=== PATIENT | female | born 1950 | race Two or more races ===

== ENCOUNTER → 2020-08-25 15:03 | Outpatient (BNV) | payer MEDICARE, SELFPAY | PROVIDERS: PCP Internal Medicine; Visit Provider Internal Medicine | DX: D69.6 Thrombocytopenia, unspecified (principal); E53.8 Deficiency of other specified B group vitamins | CPT/HCPCS: 99212; 99213 ==

== ENCOUNTER 2021-05-05 12:56 | Outpatient (REF) | payer MEDICARE, SELFPAY ==
--- NOTE | ~2021-05-05 | MM_ITS ---
EXAMINATION: MM SCREENING DIGITAL BREAST TOMOSYNTHESIS, BILATERAL CLINICAL INFORMATION: Screening. Asymptomatic. The lifetime risk of breast cancer based on the Tyrer-Cuzick Model is 3%. COMPARISON: Mammography: 04/02/2019, 03/21/2018, 03/08/2017 TECHNIQUE: Digital breast tomosynthesis is performed in both the craniocaudal and mediolateral oblique views along with computer-aided detection (CAD). Synthesized 2D images are generated from the tomosynthesis. FINDINGS: There are scattered areas of fibroglandular density (ACR BI-RADS breast composition Category b). There are no significant masses, abnormal calcifications, or other abnormalities. Breast tissue composition borders on predominantly fatty. Background stromal markings are stable. There is no interval mass or architectural abnormality. Again, there are numerous benign regional round and rim calcifications and some ductal secretory calcifications in the left breast along with scattered small oil cyst consistent with sequela from remote trauma. No abnormal calcifications on the right. No significant changes. MM/MM tomosynthesis screening BI IMPRESSION: No mammographic evidence of malignancy. ASSESSMENT: BI-RADS 2: Benign RECOMMENDATION: Routine annual mammography screening. This patient's information was entered into a reminder system with a target due date for their next mammogram.
== END 2021-05-05 12:57 | disposition home or self-care (01) ==
LOC: HO.MAMMO 12:56
PROVIDERS: Visit Provider Internal Medicine
DX: Z12.31 Encounter for screening mammogram for malignant neoplasm of breast (principal)
CPT/HCPCS: 77063; 77067

== ENCOUNTER 2022-05-08 13:59 | Outpatient (REF) | payer OTHER, SELFPAY ==
--- NOTE | ~2022-05-08 | MM_ITS ---
EXAMINATION: MM SCREENING DIGITAL BREAST TOMOSYNTHESIS, BILATERAL CLINICAL INFORMATION: Screening. Asymptomatic. The lifetime risk of breast cancer based on the Tyrer-Cuzick Model is 3%. COMPARISON: Mammography: 05/05/2021, 04/02/2019, 03/21/2018 TECHNIQUE: Digital breast tomosynthesis is performed in both the craniocaudal and mediolateral oblique views along with computer-aided detection (CAD). Synthesized 2D images are generated from the tomosynthesis. Additional right CC view is provided. FINDINGS: There are scattered areas of fibroglandular density (ACR BI-RADS breast composition Category b). Parenchymal pattern is similar to prior exams. There is no developing density or interval mass or architectural abnormality or abnormal calcifications. The axilla are unremarkable. Again, there are scattered small benign oil cysts in the left breast along with numerous benign rim calcifications consistent with sequela from prior remote injury. Right breast calcifications are stable. There are no significant changes. MM/MM tomosynthesis screening BI IMPRESSION: No mammographic evidence of malignancy. ASSESSMENT: BI-RADS 2: Benign RECOMMENDATION: Routine annual mammography screening. This patient's information was entered into a reminder system with a target due date for their next mammogram.
== END 2022-05-08 14:00 | disposition home or self-care (01) ==
LOC: HO.MAMMO 13:59
PROVIDERS: PCP Internal Medicine; Visit Provider Internal Medicine
DX: Z12.31 Encounter for screening mammogram for malignant neoplasm of breast (principal)
CPT/HCPCS: 77063; 77067

== ENCOUNTER 2022-12-19 14:30 | Outpatient (REF) | payer OTHER, SELFPAY ==
--- NOTE | ~2022-12-19 | XR_ITS ---
EXAMINATION: XR HIP, LEFT CLINICAL INFORMATION: Hip pain COMPARISON: CT scan the abdomen and pelvis November 2017 TECHNIQUE: Two views of the left hip. FINDINGS: Bones and soft tissues are normal. No fracture. Alignment is anatomic. Hip joint space is maintained. XR/XR hip LT min 2V IMPRESSION: Normal left hip.
--- NOTE | ~2022-12-19 | XR_ITS ---
EXAMINATION: XR LUMBOSACRAL SPINE WITH OBLIQUES CLINICAL INFORMATION: Low back pain COMPARISON: X-rays lumbar sacral spine April 2010. CT abdomen and pelvis November 2017. Vascular calcification noted within the aorta and branch vessels. Surrounding bone and soft tissues otherwise unremarkable. TECHNIQUE: AP, both oblique, and lateral views of the lumbar spine. Lateral view of the lumbosacral junction. FINDINGS: Vertebral bodies are normally aligned with normal height. Persistent degenerative disc changes most prominent at the L5-S1 level with a vacuum disc phenomena and disc space narrowing with endplate osteophytes. Mild degenerative disc changes at L4-L5 with endplate osteophytes. Bilateral facet arthrosis at the L5-S1 level better appreciated on prior CT. Arterial calcification noted in the abdomen. Surrounding bone and soft tissues unremarkable. 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 No significant change compared with the lumbar sacral spine dating back to 2009. No acute abnormality
== END 2022-12-19 14:31 | disposition home or self-care (01) ==
LOC: HO.HHCX 14:30
PROVIDERS: PCP Internal Medicine; Visit Provider Internal Medicine
DX: M25.552 Pain in left hip (principal); M54.50 Low back pain, unspecified
CPT/HCPCS: 72110; 73502

== ENCOUNTER 2022-12-27 13:53 | Outpatient (REF) | payer OTHER, SELFPAY ==
--- NOTE | ~2022-12-27 | MM_ITS ---
EXAMINATION: BONE DENSITOMETRY CLINICAL INDICATION: Osteopenia. COMPARISON: Previous BD dated 10/06/2016 and baseline BD dated 09/26/2005. TECHNIQUE: Using a TrendMD DXA System (software version: 13.1) manufactured by [employer], dual-energy x-ray absorptiometry was performed of the lumbar spine and left hip. The images are of good technical quality. Summary results are attached. FINDINGS: AP SPINE L1-L3 (excluding L4): The data of L1-L4 has been changed to exclude the L4 vertebral body, because degenerative changes at this level may cause overestimation of lumbar spine density. Current: BMD 0.953 g/cm2, Z-score -0.5, T-score -1.8, osteopenia, 2.7% increase from previous, 3.7% increase from baseline (<5% change is not significant). Prior: BMD 0.928 g/cm2. Baseline: BMD 0.919 g/cm2. LEFT FEMUR, NECK: Current: BMD 0.744 g/cm2, Z-score -0.5, T-score -2.1, osteopenia. Prior: BMD 0.741 g/cm2. Baseline: BMD 0.747 g/cm2. LEFT FEMUR, TOTAL: Current: BMD 0.894 g/cm2, Z-score 0.4, T-score -0.9, normal, 0.1% increase from previous, 0.2% increase from baseline (<5% change is not significant). Prior: BMD 0.893 g/cm2. Baseline: BMD 0.892 g/cm2. IDENTIFIED RISK FACTORS: Glucocorticoids (chronic), height loss, menopause, thiazide. HISTORY OF FRACTURE: None listed. MEDICATIONS: Calcium, vitamin D. MM/XR DEXA axial skeleton IMPRESSION: 1. DIAGNOSIS: Osteopenia based on the lowest T-score value of -2.1 in the femoral neck applying World Health Organization criteria. 2. 10-YEAR FRACTURE RISK PREDICTION, FRAX: Major osteoporotic fracture (clinical spine, forearm, hip or shoulder) 12.0%. Hip fracture 3.1%. 3. Treatment Recommendations: NOF guidelines recommend consideration for treatment in postmenopausal women and men age 50 and older presenting with the following: -A hip or vertebral (clinical or morphometric) fracture. -T-score less than or equal to -2.5 at the femoral neck or spine after appropriate evaluation to exclude secondary causes. -Low bone mass at the hip or spine and a 10-year fracture probability by FRAX of greater than or equal to 3% for hip fracture or greater than or equal to 20% for major osteoporotic fracture based on the [place] adapted WHO algorithm. 4. Other Recommendations: All treatment decisions require clinical judgment and consideration of individual patient factors, including patient preferences, comorbidities, previous drug use, risk factors not captured in the FRAX model (e.g. frailty, falls, vitamin D deficiency, increased bone turnover, interval significant decline in bone density) and possible under or overestimation of fracture risk by FRAX. Additional medical evaluation for secondary cause of low bone mineral density may be appropriate. FUTURE SCAN RECOMMENDATION: People with diagnosed cases of osteoporosis or at high risk for fracture should have regular bone mineral density tests. For patients eligible for Medicare, routine testing is allowed once every 2 years. The testing frequency can be increased to one year for patients who have rapidly progressing disease, those who are receiving or discontinuing medical therapy to restore bone mass, or have additional risk factors.
== END 2022-12-27 13:54 | disposition home or self-care (01) ==
LOC: HO.MAMMO 13:53
PROVIDERS: PCP Internal Medicine; Visit Provider Internal Medicine
DX: Z13.820 Encounter for screening for osteoporosis (principal); Z78.0 Asymptomatic menopausal state; M85.89 Other specified disorders of bone density and structure, multiple sites
CPT/HCPCS: 77080

== ENCOUNTER 2023-05-14 13:38 | Outpatient (REF) | payer OTHER, SELFPAY | END 2023-05-14 13:39 | disposition home or self-care (01) | LOC: HO.MAMMO 13:38 | PROVIDERS: PCP Internal Medicine; Visit Provider Internal Medicine | DX: Z12.31 Encounter for screening mammogram for malignant neoplasm of breast (principal) | CPT/HCPCS: 77063; 77067 ==

== ENCOUNTER → 2023-05-14 14:00 | Outpatient (BNV) | payer OTHER, SELFPAY | PROVIDERS: PCP Internal Medicine; Visit Provider Radiology Diagnostic Radiology | DX: Z12.31 Encounter for screening mammogram for malignant neoplasm of breast (principal) | CPT/HCPCS: 77063; 77067 ==

== ENCOUNTER 2023-11-05 09:14 | Outpatient (REF) | payer OTHER, SELFPAY ==
[2023-11-05 11:53] LABS: Alanine Aminotransferase 30 U/L (0-31); Albumin Level 4.3 g/dL (3.5-5.0); Alkaline Phosphatase 101 U/L (39-117); Anion Gap 15 (12-20); Aspartate Amino Transferase 34 U/L (5-31); Bilirubin Direct 0.2 mg/dL (0.0-0.5); Bilirubin Total 0.5 mg/dL (0.0-1.0); Blood Urea Nitrogen 9 mg/dL (9-16); Calcium 10.4 mg/dL (8.4-10.2); Carbon Dioxide 30 mmol/L (22-29); Chloride 100 mmol/L (96-108); Cholesterol 114 mg/dL (<200); Estimated Glomerular Filt Rate > 60; Glucose Random 114 mg/dL (60-115); HDL Cholesterol 34 mg/dL (>40); LDL Cholesterol Calculated 60 mg/dL (<100); Potassium 3.8 mmol/L (3.3-5.1); Sodium 141 mmol/L (135-145); Total Protein 8.1 g/dL (6.5-8.0); Triglycerides 101 mg/dL (<150)
[2023-11-05 12:42] LABS: Reflex LDLD? No
== END 2023-11-05 09:15 | disposition home or self-care (01) ==
LOC: HO.HHCL 09:14
PROVIDERS: Visit Provider Internal Medicine
DX: E11.9 Type 2 diabetes mellitus without complications (principal)
CPT/HCPCS: 36415; 80048; 80061; 80076

== ENCOUNTER 2023-11-30 08:00 | Day surgery (SDC) | payer OTHER, SELFPAY ==
--- NOTE | 2023-11-29 09:01 | P.CONAN_ITS ---
Documented by User: Ruth Damian NP 11/29/23 09:10 HPI - Anesthesia Eval Consult details Narrative: 73yo F for Colonoscopy Chronic mild thrombocytopenia. Plavix for hx CVA Anesthesia Pre-Procedure Meds Is the patient on any of the following meds?: Dulaglutide (Trulicity) PMFSH Active Problems Active Problems: All Active Problems Thrombocytopenia (Chronic) Past Medical History Medical History HTN (hypertension) Diabetes mellitus type 2 in obese Hx of Helicobacter infection GERD (gastroesophageal reflux disease) History of migraine headaches Tubular adenoma Hypertriglyceridemia Osteopenia Cervical dysplasia CVA (cerebral vascular accident) Thrombocytopenia Family History Family History Father Diabetes Mother Diabetes Surgical History Surgical History History of bilateral carpal tunnel release History of tubal ligation History of bladder suspension procedure Social History Social History Household Members: Spouse and Family Housing: House Patient Tobacco Use Status: Never used Tobacco Use of substances other than those prescribed or required for medical reasons: No Are you DNR?: No Advance Directives: No Advance Directives Information Provided: Yes service: No Current occupational status: retired 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 Meds Allergies Allergy/AdvReac Type Severity Reaction Status Date / Time aspirin [ASPIRIN] Allergy Unknown upset Verified 11/30/23 10:00 stomach aspirin Allergy Unknown upset Uncoded 11/30/23 10:00 stomach Home Medications ?Medication ?Instructions ?Recorded ?Confirmed ?Last Taken ?Type atorvastatin 40 mg tablet 1 tab PO BEDTIME 08/25/20 08/29/23 Unknown History clopidogrel 75 mg tablet 1 tab PO DAILY 08/25/20 11/30/23 11/24/23 History cyanocobalamin (vitamin B-12) 1 tab PO BEDTIME 08/25/20 11/30/23 Unknown History 1,000 mcg tablet meclizine 12.5 mg tablet 1 tab PO BID PRN dizziness 08/25/20 08/29/23 Unknown History tolterodine 4 mg capsule,extended 1 cap PO DAILY 08/25/20 11/30/23 Unknown History release 24 hr glipizide 5 mg tablet 5 mg PO DAILY 08/30/21 11/30/23 Unknown History hydrochlorothiazide 25 mg tablet 25 mg PO DAILY 08/30/21 11/30/23 Unknown History mirabegron 25 mg tablet,extended 25 mg PO DAILY 08/30/21 11/30/23 Unknown History release 24 hr (Myrbetriq) venlafaxine 37.5 mg 1 cap PO Q12H 08/30/21 11/30/23 Unknown History capsule,extended release 24 hr dulaglutide 0.75 mg/0.5 mL 0.75 mg subcut QWEEK 11/30/23 11/30/23 11/22/23 History subcutaneous pen injector (Trulicity) Exam Pertinent Lab Results Pertinent Lab Results: Laboratory Tests 08/29/23 11/05/23 12:58 09:20 WBC 9.0 Hgb 14.0 Hct 42.3 Plt Count 136 L Sodium 141 Potassium 3.8 Chloride 100 Carbon Dioxide 30 H BUN 9 Creatinine 0.67 Assessment and Plan Assessment Anesthesia Assessment: Chart Reviewed Documented by User: Carmen Lopez MD 11/30/23 10:13 HPI - Anesthesia Eval Anesthesia Pre-Procedure Meds Is the patient on any of the following meds?: Dulaglutide (Trulicity) (Last dose 11/22/23) If Yes to any meds - educate patient: Pt education - increased risk of aspiration PMFSH Active Problems Active Problems: All Active Problems Thrombocytopenia (Chronic) Residual Right sided weakness post CVA 2017 Past Medical History Medical History HTN (hypertension) Diabetes mellitus type 2 in obese Hx of Helicobacter infection GERD (gastroesophageal reflux disease) History of migraine headaches Tubular adenoma Hypertriglyceridemia Osteopenia Cervical dysplasia CVA (cerebral vascular accident) Thrombocytopenia Family History Family History Father Diabetes Mother Diabetes Family history of problems with anesthesia: No Surgical History Surgical History History of bilateral carpal tunnel release History of tubal ligation History of bladder suspension procedure History of Problems with Anesthesia: Yes (? Spinal headache for days after ?? 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 Allergies Allergy/AdvReac Type Severity Reaction Status Date / Time aspirin [ASPIRIN] Allergy Unknown upset Verified 11/30/23 10:00 stomach aspirin Allergy Unknown upset Uncoded 11/30/23 10:00 stomach Home Medications ?Medication ?Instructions ?Recorded ?Confirmed ?Last Taken ?Type atorvastatin 40 mg tablet 1 tab PO BEDTIME 08/25/20 08/29/23 Unknown History clopidogrel 75 mg tablet 1 tab PO DAILY 08/25/20 11/30/23 11/24/23 History cyanocobalamin (vitamin B-12) 1 tab PO BEDTIME 08/25/20 11/30/23 Unknown History 1,000 mcg tablet meclizine 12.5 mg tablet 1 tab PO BID PRN dizziness 08/25/20 08/29/23 Unknown History tolterodine 4 mg capsule,extended 1 cap PO DAILY 08/25/20 11/30/23 Unknown History release 24 hr glipizide 5 mg tablet 5 mg PO DAILY 08/30/21 11/30/23 Unknown History hydrochlorothiazide 25 mg tablet 25 mg PO DAILY 08/30/21 11/30/23 Unknown History mirabegron 25 mg tablet,extended 25 mg PO DAILY 08/30/21 11/30/23 Unknown History release 24 hr (Myrbetriq) venlafaxine 37.5 mg 1 cap PO Q12H 08/30/21 11/30/23 Unknown History capsule,extended release 24 hr dulaglutide 0.75 mg/0.5 mL 0.75 mg subcut QWEEK 11/30/23 11/30/23 11/22/23 History subcutaneous pen injector (Trulicity) Exam Height,Weight and Vital Signs: Height 5 ft 2 in Weight 73.028 kg Vital Signs Temp Pulse Resp BP Pulse Ox O2 Del Method 11/30/23 09:30 97.3 F 74 16 137/69 98 Room Air Airway Mallampati Class: III TM Dist: >3cm Neck ROM: Full Loose/Missing/Broken Teeth: Yes (Missing some teeth all over. ?broken tooth back. No loose teeth) Heart: RRR Lungs: CTAB Assessment and Plan Assessment Anesthesia Assessment: Anesthesia Plan Discussed and Chart Reviewed Final Anesthetic Review Family History of Problems with Anesthesia: No History of Problems with Anesthesia: Yes (? Spinal headache for days after ?? bladder suspension ) NPO: Yes ASA Class: III Final Preanesthetic Review: No Changes in Pt Med Stat, Meds/Allgs Chart Reviewed, Consent Obtained/Reviewed and Anes Risks/Benef Reviewed Patient Risk: Intermediate Procedure Risk: Low Assessment/Block/Sedation in SS: Assess/Block/Sedation-SS Anesthetic Plan Anesthetic Plan: MAC: and TIVA Disposition: Standard PACU
[2023-11-30 09:18] VITALS: BMI 29.4
[2023-11-30 09:30] VITALS: BP 137/69; PULSE 74; RESP 16; TEMP 36.3; O2SAT 98
[2023-11-30] MEDS: Lactated Ringers 1,000 ML 100 ML IVCONT (09:30)
[2023-11-30 09:56] LABS: Glucose, Whole Blood 129 mg/dL (60-115)
--- NOTE | 2023-11-30 10:58 | P.BOP_ITS ---
Brief Operative Note Date of Service: 11/30/23 Pre-op diagnosis: Screening Post-op diagnosis: other (Polyp) Procedure: Colonoscopy to the cecum with hot snare polypectomy x 1 and placement of 2 Resolution clips Surgeon: Tolu Chan MD Anesthesia: MAC Was an Electromechanical Assembler used for this Procedure?: No Estimated blood loss (mL): 0 Pathology: other (A. Ascending colon polyp) Condition: stable Disposition: PACU
[2023-11-30 10:59] VITALS: BP 130/62; PULSE 101; RESP 16; TEMP 36.9; O2SAT 92
[2023-11-30 11:14] VITALS: BP 125/68; PULSE 84; RESP 16; TEMP 36.6; O2SAT 96
--- NOTE | 2023-11-30 11:35 | OP_ITS ---
DATE OF SERVICE: 11/30/2023 SURGEON: Tolu Chan MD INDICATIONS: The patient presents for evaluation of colorectal cancer screening in regard to a personal history of colon polyps and family history of colon cancer. Full consent obtained from her for this, including risks of bleeding and perforation. PREOPERATIVE DIAGNOSIS: Colorectal cancer screening, personal history of colon polyps, family history of colon cancer. POSTOPERATIVE DIAGNOSIS: Colorectal cancer screening, personal history of colon polyps, family history of colon cancer, colon polyp, diverticulosis, and internal hemorrhoids. PROCEDURE PERFORMED: Colonoscopy to cecum with hot snare polypectomy and placement of 2 resolution clips. ESTIMATED BLOOD LOSS: COMPLICATIONS: ANESTHESIA: Monitored anesthesia care. ASSISTANTS: SPECIMENS: DESCRIPTION OF PROCEDURE: The patient was placed in the left lateral decubitus position. The digital rectal exam revealed no abnormalities. The A Fourth Act video pediatric colonoscope was entered into the rectum and advanced easily to the cecum. Once in the cecum, I did identify normal-appearing cecal pouch with appendiceal orifice, a normal-appearing ileocecal valve. The entire cecum and ileocecal valve appeared normal. The scope was slowly withdrawn assessing all mucosal surfaces carefully. Preparation was excellent. In the proximal ascending colon was an approximately 10 mm grossly adenomatous polyp, which was removed by hot snare polypectomy and recovered by suction. The polypectomy site appeared clean, without any sign of residual polyp nor bleeding. Two resolution clips were applied with good deployment and good hemostasis to the polypectomy site. I did not visualize any other polyps, colitis, or angiodysplasia. There was a mild amount of sigmoid diverticulosis. In the rectum, scope was retroflexed visualizing internal hemorrhoids, but no other pathology. The rectal mucosa appeared normal. The scope was straightened and withdrawn from the patient. She tolerated the procedure well and was returned to recovery area in stable condition. IMPRESSION: 1. Colon polyp. 2. Diverticulosis. 3. Internal hemorrhoids. PLAN: The results of the pathology will be checked. I would recommend a repeat colonoscopy in 5 years. She was advised not to use any aspirin or NSAIDs for at least 1 week. She was advised to resume her clopidogrel on December 03. MD RYAN Phillips/MINOR / [id number]
== END 2023-11-30 11:38 | disposition home or self-care (01) ==
PROVIDERS: PCP Internal Medicine; Visit Provider Internal Medicine
PROC: 0DJD8ZZ Inspection of Lower Intestinal Tract, Via Natural or Artificial Opening Endoscopic (ICD-10-PCS; CPT 45378; principal; 2023-11-30 09:30)
DX: Z12.11 Encounter for screening for malignant neoplasm of colon (principal); Z86.010 Personal history of colon polyps; Z80.0 Family history of malignant neoplasm of digestive organs; D12.2 Benign neoplasm of ascending colon; K57.30 Diverticulosis of large intestine without perforation or abscess without bleeding; K64.8 Other hemorrhoids; I10 Essential (primary) hypertension; I69.851 Hemiplegia and hemiparesis following other cerebrovascular disease affecting right dominant side; E11.9 Type 2 diabetes mellitus without complications; Z79.85 Long-term (current) use of injectable non-insulin antidiabetic drugs; Z79.84 Long term (current) use of oral hypoglycemic drugs; Z79.899 Other long term (current) drug therapy; Z79.01 Long term (current) use of anticoagulants; Z88.8 Allergy status to other drugs, medicaments and biological substances; Z98.890 Other specified postprocedural states
CPT/HCPCS: 45385; 82947; 88305; J1596; J2704

== ENCOUNTER 2024-05-26 15:14 | Outpatient (REF) | payer OTHER, SELFPAY ==
--- NOTE | ~2024-05-26 | MM_ITS ---
EXAMINATION: MM SCREENING DIGITAL BREAST TOMOSYNTHESIS, BILATERAL CLINICAL INFORMATION: Screening. Asymptomatic. COMPARISON: Mammography: Comparison is made with available priors TECHNIQUE: Digital breast mammography with tomosynthesis is performed in both the craniocaudal and mediolateral oblique views along with computer-aided detection (CAD). FINDINGS: There are scattered areas of fibroglandular density (ACR BI-RADS breast composition Category b). Bilateral rim calcifications are stable and benign. There are no significant masses, abnormal calcifications, or other abnormalities. MM/MM tomosynthesis screening BI IMPRESSION: No mammographic evidence of malignancy. ASSESSMENT: BI-RADS BI-RADS 2 - Benign Findings RECOMMENDATION: Routine annual mammography screening. 1 year F/U This examination should not preclude the clinical evaluation of a suspicious palpable abnormality. This patient's information was entered into a reminder system with a target due date for their next mammogram. Electronically signed by: Valeria Rogers DO 06/06/2024 04:45 PM EDT
== END 2024-05-26 15:15 | disposition home or self-care (01) ==
LOC: HO.MAMMO 15:14
PROVIDERS: Visit Provider Internal Medicine
DX: Z12.31 Encounter for screening mammogram for malignant neoplasm of breast (principal)
CPT/HCPCS: 77063; 77067

== ENCOUNTER → 2024-05-26 15:30 | Outpatient (BNV) | payer OTHER, SELFPAY | PROVIDERS: Visit Provider Internal Medicine | DX: Z12.31 Encounter for screening mammogram for malignant neoplasm of breast (principal) | CPT/HCPCS: 77063; 77067 ==

== ENCOUNTER 2024-07-08 11:10 | Outpatient (REF) | payer OTHER, SELFPAY ==
--- NOTE | ~2024-07-08 | MR_ITS ---
EXAMINATION: MR HIP WITHOUT CONTRAST, LEFT CLINICAL INFORMATION: Left hip and left leg pain. Back pain. COMPARISON: Left hip radiographs dated 12/19/2022. TECHNIQUE: MRI of the left hip was obtained using routine sequences on a high-field magnet. FINDINGS: ACETABULAR LABRUM: Linear fluid signal within the undersurface of the anterosuperior labrum (sagittal image 14/21), consistent with a nondisplaced undersurface tear. Linear fluid signal/tear extends to the undersurface of the lateral and posterosuperior labrum with a posterosuperior paralabral cyst measuring up to 1.4 cm in greatest dimension. ARTICULAR CARTILAGE/BONE: Mild articular cartilage signal heterogeneity with small marginal osteophytes. No stress reaction, fracture, or avascular necrosis. No concerning lytic or blastic osseous lesion. Mild right hip osteoarthritis on large field of view imaging. Degenerative disc disease and facet arthropathy at L5-S1. MUSCLES/TENDONS: Mild gluteus medius and gluteus minimus tendinosis. Moderate proximal left hamstring tendinosis. Longitudinal intrasubstance partial tearing of the proximal left hamstring tendon measuring up to 4 cm in craniocaudal dimension. No full-thickness transverse tendon tear or tendon retraction. JOINT FLUID/BURSA: No left hip joint effusion. Trace fluid and edema within the greater trochanter bursa, consistent with mild bursitis. INTRAPELVIC STRUCTURES: Unremarkable. MR/MR hip LT wo con IMPRESSION: 1. Nondisplaced undersurface tear of the anterosuperior labrum with extension to the lateral and posterior superior labrum. Posterosuperior paralabral cyst measuring up to 1.4 cm. 2. Mild left hip osteoarthritis. No stress reaction, fracture, or avascular necrosis. 3. Mild gluteus medius and gluteus minimus tendinosis. Moderate proximal left hamstring tendinosis with longitudinal intrasubstance partial tearing measuring up to 4 cm in craniocaudal dimension. No full-thickness transverse tendon tear or tendon retraction. 4. Mild greater trochanteric bursitis. 5. Degenerative disc disease and facet arthropathy at L5-S1. Electronically signed by: Brandon Chacon MD 07/18/2024 01:18 PM [facility]
== END 2024-07-08 11:11 | disposition home or self-care (01) ==
LOC: HO.MRI 11:10
PROVIDERS: PCP Internal Medicine; Visit Provider Internal Medicine
DX: M54.50 Low back pain, unspecified (principal); M79.605 Pain in left leg; M25.552 Pain in left hip
CPT/HCPCS: 72148; 73721

== ENCOUNTER 2024-09-08 13:00 | Outpatient (AMB) | payer OTHER, SELFPAY ==
[2024-09-08 13:30] VITALS: BMI 29.4
--- NOTE | 2024-09-08 13:30 | MHC.OFFVIS ---
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 Patient reports pain started about 2 yrs ago. She is experiencing groin pain, difficulty getting up from a sitting position, throbbing pain and trouble turning in bed. She has tried P.T on 2 separate occasions with no improvement, and injection 3x between January and March with no improvement. She also has numbness and tingling at times in her feet. Draft Roller Picker Name: [email or web address] [id number] Allergies aspirin [ASPIRIN] Allergy (Unknown, Verified 09/08/24 13:43) upset stomach aspirin Allergy (Unknown, Uncoded 09/08/24 13:43) upset stomach Medication List - Last Reconciled 09/08/24 by Chintan Saldivar PA-C atorvastatin 1 tab PO BEDTIME clopidogrel 1 tab PO DAILY cyanocobalamin (vitamin B-12) 1 tab PO BEDTIME dulaglutide (Trulicity) 0.75 mg subcut QWEEK glipizide 5 mg PO DAILY hydrochlorothiazide 25 mg PO DAILY meclizine 1 tab PO BID PRN mirabegron ER (Myrbetriq) 25 mg PO DAILY tolterodine ER 1 cap PO DAILY venlafaxine ER 1 cap PO Q12H HPI HPI 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 She needs to modify activity due to her pain . Mar 2024 she had an injection along with tylenol without significant relief. [facility] Medical History HTN (hypertension) Diabetes mellitus type 2 in obese Hx of Helicobacter infection GERD (gastroesophageal reflux disease) History of migraine headaches Tubular adenoma Hypertriglyceridemia Osteopenia Cervical dysplasia CVA (cerebral vascular accident) Thrombocytopenia Surgical History History of bilateral carpal tunnel release History of tubal ligation History of bladder suspension procedure Family History Father Diabetes Mother Diabetes Social History Household Members: Spouse and Family Housing: House Patient Tobacco Use Status: Never used Tobacco service: No Current occupational status: retired 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 No pain with ROM of the hip. Pain along the greater trochanter. No pain with hip flexion or abduction.There is tenderness along the si joint, Negative SLR. NVI. Office Procedures AMB Joint Injection/Aspiration Joint Injection/Aspiration Details: left trochanteric bursa Prep: site was prepped using aseptic technique, ethochloride spray was applied and injection warnings given Injected: 40 mg of, 80 mg of, DepoMedrol, with 8 mL of and 1% plain lidocaine Procedure: The patient tolerated the procedure well and there was some relief with the local anesthesia Coding 09347 - Glenohumeral/Tronchanteric Bursa/Intraarticular Procedure code (CPT) selection complete Results Reviewed Results Reviewed: X-rays of the left hip obtained in the office today and by me show mild sclerosis of the acetabulum with osteophytes. Assessment & Plan Assessment & Plan (1) Trochanteric bursitis of left hip: Code(s): M70.62 - Trochanteric bursitis, left hip Category: Medical Plan: We discussed options today which include steroid injection. She consented to a left hip trochanteric bursa injection which was tolerated well. I did encourage a course of physical therapy which she is hesitant to proceed with stating she has done this in the past without relief. Order was still placed. We also discussed their diabetes and the effect the steroid can have on thier blood glucose levels; therefore, they will continue to monitor these very closely over the next 72 hours Orders: Orders PT Evaluation and Treatment Today M70.62 - Trochanteric bursitis, left hip XR hip LT min 2V Today M25.552 - Pain in left hip Coding Level of Care Code New Pt Level 3 (08191) Complex EM visit Add On G2211 Diagnoses Trochanteric bursitis of left hip M70.62 CPT Codes Coding - Joint 7: 84074 - Glenohumeral/Tronchanteric Bursa/Intraarticular ([id number])
== END 2024-09-08 14:25 | disposition home or self-care (01) ==
LOC: HO.HOS 13:00
PROVIDERS: PCP Internal Medicine; Visit Provider Physician Assistant
DX: M70.62 Trochanteric bursitis, left hip (principal)
CPT/HCPCS: 20610; 99203; G2211

== ENCOUNTER 2024-09-11 10:51 | Outpatient (REF) | payer OTHER, SELFPAY ==
[2024-09-11 12:19] LABS: Alanine Aminotransferase 38 U/L (0-31); Albumin Level 4.3 g/dL (3.5-5.0); Alkaline Phosphatase 107 U/L (39-117); Anion Gap 10 (12-20); Aspartate Amino Transferase 32 U/L (5-31); Bilirubin Total 0.6 mg/dL (0.0-1.0); Blood Urea Nitrogen 10 mg/dL (9-16); Calcium 10.1 mg/dL (8.4-10.2); Carbon Dioxide 29 mmol/L (22-29); Chloride 105 mmol/L (96-108); Cholesterol 120 mg/dL (<200); Estimated Glomerular Filt Rate > 60; Glucose Random 87 mg/dL (60-115); HDL Cholesterol 42 mg/dL (>40); LDL Cholesterol Calculated 63 mg/dL (<100); Potassium 3.4 mmol/L (3.3-5.1); Sodium 141 mmol/L (135-145); Total Protein 7.9 g/dL (6.5-8.0); Triglycerides 78 mg/dL (<150)
[2024-09-11 12:35] LABS: TSH reflex Free T4 1.78 uIU/mL (0.32-4.0)
== END 2024-09-11 10:52 | disposition home or self-care (01) ==
LOC: HO.HHCL 10:51
PROVIDERS: Visit Provider Internal Medicine
DX: E11.9 Type 2 diabetes mellitus without complications (principal)
CPT/HCPCS: 36415; 80053; 80061; 84443

== ENCOUNTER 2024-09-15 10:03 | Outpatient (AMB) | payer OTHER, SELFPAY ==
--- NOTE | 2024-09-15 10:44 | HO.SPINEOV ---
Vital Signs 09/15/24 10:44 Height 5 ft 1 in Weight 159 lb BMI 30.0 Intake Visit Reasons: LBP Intake Note: Ms. Rene Fang is here today c/o hip pain. Soft Sugar Supervisor Required: Yes Soft Sugar Supervisor Name: Tablet Allergies aspirin [ASPIRIN] Allergy (Unknown, Verified 09/15/24 10:45) upset stomach aspirin Allergy (Unknown, Uncoded 09/08/24 13:43) upset stomach Physical Exam Vital Signs: BMI result Body Mass Index 30.0 Assessment & Plan Assessment & Plan (1) Left hip pain: Code(s): M25.552 - Pain in left hip Category: Medical Plan Soft Sugar Supervisor [id number] used for this visit Dear Dr. Randolph, Thank you for referring Angelina to our office today. She is a pleasant 74-year-old female who comes in today with a chief complaint of left hip pain. She reports this has been ongoing since 2022. She denies any known inciting incident for her pain. She does report some shooting pain down her left lower extremity mainly in the posterior thigh and posterior gastrocnemius. She denies any numbness/tingling associated with the pain. When asked where the worst of her pain as she points directly to the left trochanteric bursa. She reports that sitting down helps to alleviate her pain and that walking and standing aggravates her pain. She has attempted to utilize uxox-yqb-[id number] medications such as Tylenol to help mitigate the pain with only minimal relief of symptoms. She went to physical therapy about a year ago, and does feel as though this was helpful for her for period of time. She reports that she tried injections in her lumbar spine before, but felt there were not helpful for her. She most recently obtained an injection in her left hip from our colleagues in Orthopedics, and reports fairly good resolution of her left leg pain from this injection. Notably the MRI of her left hip shows a tear of the anterosuperior labrum. PMH: Trochanteric bursitis of the left hip, anxiety, overactive bladder, high blood pressure, type 2 diabetes (unknown last A1c), history of stroke, currently on clopidogrel. Social hx: The patient does not smoke, reports no substance use. Medications: See [employer] list. Allergies: Aspirin. Physical exam: The patient has 5/5 strength in her upper and lower extremities. The patient reports subjective weakness in the right side since her stroke, however this is not evident on her strength testing today. No significant sensational deficits on exam. The patient ambulates well, with the assistance of a cane. Her gait is non antalgic and non spastic. (-) Hernandez's, (-) bilateral straight leg raise, (-) clonus. Imaging review: MRI of the lumbar spine completed here at [facility] shows some left-sided foraminal stenosis at L3-4, mild bilateral foraminal stenosis at L4-5, and a posterior disc herniation at L5-S1 causing moderate-severe bilateral foraminal stenosis at this level, worse on the left. Impression: Angelina is a pleasant 74 year old female comes in today with a chief complaint of left hip pain. She reports this has been ongoing for the past 2 years, and most recently was treated by our colleagues in Orthopedics with a left hip injection. The patient reports fairly good relief of her left-sided hip pain with this injection. Importantly, she does report a left-sided radiculopathy alongside this pain, that starts in her left posterior buttocks shoots down her left posterior thigh and terminates near the left posterior gastrocnemius. She denies any numbness or tingling associated with this pain, but does state that the pain will ?flare up? throughout the day intermittently. She does have pathology at L5-S1 that may explain some of the shooting pain that she is having, but if her primary complaint is her left hip pain I do not believe that this would be adequately addressed by lumbar decompression/diskectomy at L5-S1. Most likely her well localized left hip pain is due to her trochanteric bursitis and/or the labral tear mentioned her MRI. I encouraged the patient to follow through with the physical therapy order placed by our colleagues in Orthopedics, and to make a follow-up appointment with them thereafter. Assuming that there is nothing more to do for her hip, we may re-evaluate the patient after she follows up with Orthopedics post physical therapy for potential decompression of her lumbar spine. Thank you for allowing us to care for your patient. The total time spent with this visit with this patient was 45 minutes reviewing history, physical exam, MRI imaging review, and implementation of treatment plan or further diagnostic testing Tunde Bryan MD,PhD [facility] Coding Level of Care Code Est Pt Level 4 (01296) Diagnoses Left hip pain M25.552
--- OUTSIDE RECORDS SUMMARY | 2024-09-15 14:38 | XMS_ITS | Encounter Summary ---
Author Organization [employer] Address [address] [place] [address] Care Team Providers Care Customer Associate Name Role Phone Ryan Latif MD Primary Care Provide r Reason for Visit * Reason Onset Date Comments Chart Prep 08/18/2024 Encounter Details Date Type Department Care Team ([facility] Contact Info) Description 08/18/2024 Telephone [facility] [address], [place] [phone] Ryan Latif MD [address], [place] [phone] Chart Prep Social History Tobacco Use Types Packs/Day Years Used Date Smoking Tobacco: Never Passive Smoke Exposure: Never Smokeless Tobacco: Never Alcohol Use Standard Drinks/Week Comments Defer 0 (1 standard drink = 0.6 oz pur e alcohol) Depression Answer Date Recorded Patient Health Questionnaire-9 Score 7 01/10/2024 Patient Health Questionnaire-9 Score 7 01/10/2024 Last PHQ-9: Questionnaire Data Not on file 0 01/10/2024 Housing Stability Answer Date Recorded What is your housing situation today? I have albino campbell 01/10/[address] you li ve. Do you have problems with any of the following? None of the above 01/10/2024 Food Insecurity Answer Date Recorded Within the past 12 months, y ou worried that your food would run out before you got money to buy more: Never True 01/10/2024 Within the past 12 months,th e food you bought just didn't last and you didn't have enough money to get more: Never True Transportation Answer Date Recorded In the past 12 months, has l ack of transportation kept you from medical appts, meetings, work or from getting things needed for daily living? No 01/10/2024 Utilities Answer Date Recorded In the past 12 months, has t he electric, gas, oil or water company threatened to shut off services in your home? No 01/10/2024 Depression Answer Date Recorded Patient Health Questionnaire-2 Score 2 01/10/2024 Internet Access Answer Date Recorded Internet Access Q1 Yes 05/22/2024 Internet Access Q2 Not on file 05/22/2024 Comments Unknown Sex and Gender Information Value Date Recorded Sex Assigned at Female 06/19/2022 10:18 AM EDT Legal Sex Female 10:18 AM EDT Gender Identity Female 06/19/2022 10:18 AM EDT Sexual Orientation Straight 06/19/2022 10 :18 AM EDT documented as of this encounter Miscellaneous Notes * Telephone Encounter - Lorna Olguin MA - 08/18/2024 2:59 PM EST Chart Prep Labs: not applicable Images: done ; no read/signed report for the MRI Lumbar Spine. Vaccines due: PCV20 Due Referrals: Orthopedics Appt on 09/08/2024 @1:45pm. Screenings: Eye Exam and Foot Exam Overdue care gaps: A1C, Glucose, and Oral Health Chart prep for upcoming appt with Dr.Esparza kuhn. LB documented in this encounter Plan of Treatment Not on file documented as of this encounter Visit Diagnoses Not on filedocumented in this encounter Additional Health Concerns Assessment Noted Time PHQ-9 Depression Total Score: 7 01/10/20 24 2:26 PM EDT documented as of this encounter Care Teams Customer Associate Relationship Specialty Start Date End Date Ryan Latif MD [address] [place] [address] PCP - General Internal Medicine 05/20/14 documented as of this encounter
--- OUTSIDE RECORDS SUMMARY | 2024-09-15 14:38 | XMS_ITS | Encounter Summary ---
Author Organization [employer] Address [address] [facility] [address] [place] [address] Care Team Providers Care Senior Quality Analyst Name Role Phone Ryan Latif MD Primary Care Provide r Encounter Details Date Type Department Care Team ([facility] st Contact Info) Description 09/14/2022 Orders Only [facility] PEDS [address] [place], [place] [phone] Kamryn Cruz LPN Social History Tobacco Use Types Packs/Day Years Used Date Smoking Tobacco: Never Assessed Comments Unknown Sex and Gender Information Value Date Recorded Sex Assigned at Female 06/19/2022 10:18 AM EDT Legal Sex Female 10:18 AM EDT Gender Identity Female 06/19/2022 10:18 AM EDT Sexual Orientation Straight 06/19/2022 10 :18 AM EDT documented as of this encounter Plan of Treatment Not on file documented as of this encounter Visit Diagnoses Not on filedocumented in this encounter Care Teams Senior Quality Analyst Relationship Specialty Start Date End Date Ryan Latif MD [address] [place] [phone] PCP - General Internal Medicine 05/20/14 documented as of this encounter
--- OUTSIDE RECORDS SUMMARY | 2024-09-15 14:38 | XMS_ITS | Encounter Summary ---
Author Organization [employer] Address [address] [facility] [address] [place] [address] Care Team Providers Care Jboss Architect Name Role Phone Ryan Latif MD Primary Care Provide r Encounter Details Date Type Department Care Team ([facility] st Contact Info) Description 09/03/2024 Telephone [facility] [address] [place], [place] [phone] Ryan Latif MD [address] [place], [place] [phone] Social History Tobacco Use Types Packs/Day Years [...] documented as of this encounter Care Teams Jboss Architect Relationship Specialty Start Date End Date Ryan Latif MD [address] [place] [id number] PCP - General Internal Medicine 05/20/14 documented as of this encounter
--- OUTSIDE RECORDS SUMMARY | 2024-09-15 14:38 | XMS_ITS | Encounter Summary ---
Author Organization [employer] Address [address] [facility] [address] [place] [address] Care Team Providers Care Barn Operator Name Role Phone Ryan Latif MD Primary Care Provide r Encounter Details Date Type Department Care Team ([facility] st Contact Info) Description 08/25/2022 Orders Only [facility] MED & PEDS [address] [place], [place] [phone] Kamryn Cruz LPN Social History Tobacco Use [...] on filedocumented in this encounter Care Teams Barn Operator Relationship Specialty Start Date End Date Ryan Latif MD [address] [place] [id number] PCP - General Internal Medicine 05/20/14 documented as of this encounter
--- OUTSIDE RECORDS SUMMARY | 2024-09-15 14:38 | XMS_ITS | Clinical Summary ---
Author Organization [employer] Address [address] [facility] [address] [place] [address] Care Team Providers Care Bobbin Disker Name Role Phone Ryan Latif MD Primary Care Provide r Allergies Active Allergy Reactions Criticality Noted Date Comments Aspirin 03/07/2012 Other reaction(s): skin irritation,stomach ache , ABDOMEN PAIN Lidocaine Other Medium 06/05/2024 Pt c/o numbness that lasted for 2 days, pt tolerated Mepivacaine Medications Continuous Blood Gluc Laserist (FreeStyle Nerissa 2 Brethren) deviceIndications :Type 2 diabetes mellitus without complication, without long-term current use of insulin ([facility]) 1 applicator with breakfast, with lunch, and with evening meal. 1 each 3 Active Continuous Blood Gluc Sensor (FreeStyle Nerissa 2 Sensor) miscIndications:T ype 2 diabetes mellitus without complication, without long-term current use of insulin (CMS/HCC) 1 applicator before breakfast, before lunch, and before evening meal. 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 Dx diabetes 60 each 11 4 Active FreeStyle lancets 1 each by Other route 2 times daily. Use bid, dx type 2 diabetes 60 each 11 4 Active glipiZIDE XL (Glucotrol XL) 10 MG 24 hr tabletIndications :Type 2 diabetes mellitus without complication, unspecified whether alf insulin use (CMS/[facility]) TAKE 1 TABLET BY MOUTH EVERY 12 HOURS 180 tablet 1 4 Active famotidine (Pepcid) 20 MG tabletIndications :Chronic GERD TAKE 1 TABLET BY MOUTH TWICE DAILY 60 tablet 6 4 Active Dulaglutide 1.5 MG/0.5ML solution auto-injectorIndi cations:Type 2 diabetes mellitus without complication, without long-term current use of insulin (CMS/HCC) Inject 1.5 mg under the skin 1 (one) time per week. 0.5 mL 6 4 Active Active Problems Problem Noted Date Diagnosed Date Overweight (BMI 25.0-29.9) 09/02/2024 Assessment & Plan (09/02/2024 2:42 PM EST): Dietary Recommendations: Fruits, vegetables, whole grains, protein foods, and fat-free or low-fat dairy products are healthy choices. Eat different types of protein foods in your diet. This can include seafood, lean meats, poultry, beans, peas, lentils, nuts, seeds, soy products, and eggs. Limit foods and beverages higher in added sugars, saturated fat, and sodium. Exercise Recommendations: At least 150 minutes of moderate-intensity physical activity per week, or an equivalent combination of moderate- and vigorous-intensity activity Thrombocytopenia 06/05/2024 Assessment & Plan (09/02/2024 2:29 PM EST): Under the care of Dr Walter, last seen 08/2023 Pt with chronic mild thrombocytopenia. Hematological workup showed low vitamin B12 levels. Normal methylmalonic acid and negative intrinsic factor antibody. She is on oral vitamin B12 supplementation. They recommended: Follow up in 1 year. Assessment & Plan (06/05/2024 2:22 PM EDT): Under the care of Dr Walter, last seen 08/2023 Pt with chronic mild thrombocytopenia. Hematological workup showed low vitamin B12 levels. Normal methylmalonic acid and negative intrinsic factor antibody. She is on oral vitamin B12 supplementation. They recommended: Follow up in 1 year. Dental caries 06/21/2023 Periodontal disease 04/26/2023 Type 2 diabetes mellitus without complication Assessment & Plan (09/02/2024 2:40 PM EST): Pt here for a f/u regarding her Diabetes controlled She is on a regimen of Glipizide ER 10 mg po BID and Trulicity 1.5 once a week Intolerant to Metformin due to Nausea and Vomiting Hgb A1c on 09/02/2024: 6.6 Eye exam 01/2022 Microalbumin 12/29/2022 0.6 Pt not on an FELY inhibitor/ARB Foot check today is risk of: 1 on the right foot and zero on the left Pt already on Plavix 75 mg po daily Plan: decrease glipizide to 10 mg once daily. f/u 4 months, Pt advised to: adhere to diabetic diet check your blood sugars regularly check your feet on a daily basis. Assessment & Plan (06/05/2024 2:26 PM EDT): Pt here for a f/u regarding her Diabetes controlled She is on a regimen of Glipizide ER 10 mg po BID and Trulicity 1.5 once a week Intolerant to Metformin due to Nausea and Vomiting Hgb A1c on 06/05/2024 was 6.7 from 7.5 from 7.2 from 7.7 from a previous one of 9.6 Glucometer: average 121 Eye exam 01/2022 Microalbumin 12/29/2022 0.6 Pt not on an FELY inhibitor/ARB Foot check today is risk of: 1 on the right foot and zero on the left Pt already on Plavix 75 mg po daily Plan: f/u 4 months, Pt advised to: adhere to diabetic diet check your blood sugars regularly check your feet on a daily basis. Assessment & Plan (01/10/2024 2:44 PM EDT): Pt here for a f/u regarding her Diabetes stable She is on a regimen of Glipizide ER 10 mg po BID and Trulicity 0.75 once a week Intolerant to Metformin due to Nausea and Vomiting Hgb A1c on 01/10/2024 was 7.5 from 7.2 from 7.7 from a previous one of 9.6 Glucometer: average 108 Eye exam 01/2022 Microalbumin 12/29/2022 0.6 Pt not on an FELY inhibitor/ARB Foot check today is risk of: 1 on the right foot and zero on the left Pt already on Plavix 75 mg po daily Plan: Increase Trulicity to 1.5 mg once a week f/u 4 months, Pt advised to: adhere to diabetic diet check your blood sugars regularly check your feet on a daily basis. Assessment & Plan (10/11/2023 3:24 PM EST): Pt here for a f/u regarding her Diabetes improving She is on a regimen of Glipizide ER 10 mg po BID and Trulicity 0.75 once a week Intolerant to Metformin due to Nausea and Vomiting Hgb A1c on 10/11/2023 was 7.2 from 7.7 from 8.6 from a previous one of 9.6 Glucometer: average 111 Eye exam 01/2022 Microalbumin 12/29/2022 0.6 Pt not on an FELY inhibitor/ARB Foot check today is risk of: 1 on the right foot and zero on the left Pt already on Plavix 75 mg po daily Plan: Continue current regimen f/u 4 months, Pt advised to: adhere to diabetic diet check your blood sugars regularly check your feet on a daily basis. Assessment & Plan (06/26/2023 2:36 PM EST): Pt here for a f/u regarding her Diabetes She is on a regimen of Glipizide ER 10 mg po BID and Trulicity 0.75 once a week Intolerant to Metformin due to Nausea and Vomiting Hgb A1c on 06/26/2023: was 7.7 from 8.6 from a previous one of 9.6 Glucometer: did not bring Eye exam 01/2022 Microalbumin 04/01/2021 0.8 Pt not on an FELY inhibitor/ARB Repeat Microalbumin Foot check today is risk of: 1 on the right foot and zero on the left Pt already on Plavix 75 mg po daily Plan: Continue current regimen f/u 4 months, Pt advised to: adhere to diabetic diet check your blood sugars regularly check your feet on a daily basis. Assessment & Plan (04/03/2023 2:45 PM EDT): Pt here for a f/u regarding her Diabetes She is on a regimen of Glipizide ER 10 mg po BID and Trulicity 0.75 once a week Intolerant to Metformin due to Nausea and Vomiting Hgb A1c on 04/03/2023: 8.6 from a previous one of 9.6 Glucometer: did not bring Eye exam 01/2022 Microalbumin 04/01/2021 0.8 Pt not on an FLEY inhibitor/ARB Repeat Microalbumin Foot check today is risk of: 1 on the right foot and zero on the left Pt already on Plavix 75 mg po daily Plan: Continue current regimen f/u 4 months, Pt advised to: adhere to diabetic diet check your blood sugars regularly check your feet on a daily basis. Assessment & Plan (02/06/2023 2:49 PM EDT): Pt here for a f/u regarding her Diabetes She is on a regimen of Glipizide ER 10 mg po BID Intolerant to Metformin due to Nausea and Vomiting Hgb A1c on 12/19/2022: 9.6 Glucometer: Eye exam 01/2022 Microalbumin 04/01/2021 0.8 Pt not on an FELY inhibitor/ARB Repeat Microalbumin Foot check today is risk of: 1 on the right foot and zero on the left Pt already on Plavix 75 mg po daily Plan: Start Trulicity 0.75 once a week, No Hx of thyroid cancer or pancreatitis f/u 4 months, Pt advised to: adhere to diabetic diet check your blood sugars regularly check your feet on a daily basis. Assessment & Plan (12/19/2022 2:31 PM EDT): Pt here for a f/u regarding her Diabetes She is on a regimen of Glipizide ER 10 mg po BID Intolerant to Metformin due to Nausea and Vomiting Hgb A1c on 12/19/2022: 9.6 Glucometer shows readings around 110-130, So it is unclear why her Hgb A1c is > 9 Eye exam 01/2022 Microalbumin 04/01/2021 0.8 Pt not on an FELY inhibitor/ARB Repeat Microalbumin Foot check today is risk of: 1 on the right foot and zero on the left Pt already on Plavix 75 mg po daily Plan: Discussed with pt need to be compliant with medical regimen f/u 4 weeks, might need to start a medication such as Trulicity, blood work ordered to make sure renal and liver function are adequate before we start Pt advised to: adhere to diabetic diet check your blood sugars regularly check your feet on a daily basis. Migraine 12/19/2022 Assessment & Plan (12/19/2022 12:00 PM EDT): pt here for a f/u Continues with migraines maybe twice a week but less intense with the use of Tylenol #3 prn for the migraine and Effexor XR 35 mg po BID for prophylaxis Previously I ordered: Fioricet PRN but Insurance denied it. She is not a candidate for Triptans given her Hx of CVA of unknown etiology. Plan: Continue Effexor XR 37.5 mg po BID as prophylaxis , refills sent Continue Tylenol #3 prn Pt was referred to Neurology scheduled for 07/2020, Pt tells me she was never called, Today we have reached out to their office to schedule Urge incontinence of urine 12/19/2022 Assessment & Plan (06/05/2024 1:54 PM EDT): Under the care of Urology, s/p cystoscopy with botox injection Last seen by [facility] urology 03/24/2024 Assessment & Plan (10/11/2023 3:11 PM EST): Under the care of Urology, s/p cystoscopy with botox injection Last seen by [facility] urology 09/19/2023 Assessment & Plan (06/26/2023 2:49 PM EST): Under the care of Urology, s/p cystoscopy with botox injection Has an appointment in August 2023 Assessment & Plan (12/19/2022 11:59 AM EDT): Under the care of Urology, s/p cystoscopy with botox injection Primary hypertension 12/19/2022 Assessment & Plan (06/05/2024 2:45 PM EDT): Patient here for a f/u BP controlled Most recent electrolytes, Bun and Creatinine done on: Lab Results Component Value Date NA 141 11/05/2023 NA 139 12/29/2022 K 3.8 11/05/2023 K 3.8 12/29/2022 CL 100 11/05/2023 CL 101 12/29/2022 BUN 9 11/05/2023 BUN 13 12/29/2022 CREATININE 0.67 11/05/2023 CREATININE 0.48 (L) 12/29/2022 within normal limits. She is on Hctz 25 mg po daily Plan: continue current regimen f/u 4 months patient advised to adhere to a low sodium diet, encouraged about medication compliance, counseled about weight loss. Assessment & Plan (01/10/2024 2:38 PM EDT): Patient here for a f/u Most recent electrolytes, Bun and Creatinine done on: 11/05/2023 were within normal limits. She is on Hctz 25 mg po daily Plan: continue current regimen f/u 4 months patient advised to adhere to a low sodium diet, encouraged about medication compliance, counseled about weight loss. Assessment & Plan (10/11/2023 3:10 PM EST): Patient here for a f/u Most recent electrolytes, Bun and Creatinine done on: 12/29/2022 were within normal limits. She is on Hctz 25 mg po daily Plan: continue current regimen Today will order a repeat BMP f/u 4 months patient advised to adhere to a low sodium diet, encouraged about medication compliance, counseled about weight loss. Assessment & Plan (06/26/2023 2:35 PM EST): Patient here for a f/u Most recent electrolytes, Bun and Creatinine done on: 12/29/2022 were within normal limits. She is on Hctz 25 mg po daily Plan: continue current regimen f/u 4 months patient advised to adhere to a low sodium diet, encouraged about medication compliance, counseled about weight loss. Assessment & Plan (12/19/2022 11:59 AM EDT): Patient here for a f/u Most recent electrolytes, Bun and Creatinine done on: 12/19/2021 were within normal limits. She is on Hctz 25 mg po daily Plan: continue current regimen f/u 4 months patient advised to adhere to a low sodium diet, encouraged about medication compliance, counseled about weight loss. Carpal tunnel syndrome of left wrist 12/19/2022 Assessment & Plan (06/26/2023 2:54 PM EST): S/p release left CTS Still c/o numbness and weakness Pt requesting increase in NURSE GYNECOLOGY hours I think she would benefit from an increase in hours Assessment & Plan (12/19/2022 12:07 PM EDT): S/p release left CTS Doing better although still c/o numbness and weakness Neck pain 12/19/2022 Assessment & Plan (12/19/2022 12:09 PM EDT): Pt with previous c/o chronic right-sided neck pain with radiation to right shoulder and right arm (and across to left?) accompanied by right upper extremity weakness. Pt has h/o CVA w/ residual R sided pain and weakness. She has improvement in sx w/ heat and mild improvement w/ APAP. When pain is bad, it keeps her up. In the past, symptomatology was suggestive of cervical radiculopathy Plain films cervical spine showed mild degenerative changes and right shoulder was unremarkable Pt was also referred to [facility] for consideration of PT and possible steroid injections to help her with the pain, but she was only able to complete 2 sessions w/ them,. will re-refer today. Will send lidocaine patches and ointment, pharmacy to dispense whichever is covered by her insurance w/o a PA. Advised heat, gentle stretching, f/u with neurology as scheduled. Re-refer for PT. She has rec'd her #3 COVID-19 booster, unable to reconcile in [facility]. MRI of cervical spine 02/17/2020 showed: Broad-based posterior disc bulge and uncovertebral joint spurring at C6-C7 with moderate foraminal encroachment and mild central canal stenosis. Minimal annular bulge and left-sided uncovertebral joint spurring at C5-C6 with mild right foraminal encroachment. [facility] care 12/19/2022 Assessment & Plan (09/02/2024 2:31 PM EST): Mammogram: 05/26/2024 Normal Pap Smear: NL: 02/14/2017 No need to continue given her age Colonoscopy: 11/10/2016 Pathology showed multiple tubular adenomas 5 year f/u recommended. Repeat 11/30/2023 Dr smalls showed a polyp 5 year follow up recommended Dexa scan: 09/29/2016 showed Osteopenia. Assessment & Plan (01/10/2024 2:36 PM EDT): Mammogram: 05/14/2023 Normal Pap Smear: NL: 02/14/2017 No need to continue given her age Colonoscopy: 11/10/2016 Pathology showed multiple tubular adenomas 5 year f/u recommended. Repeat 11/30/2023 Dr smalls showed a polyp 5 year follow up recommended Vaccines: tdap: 09/16/2010 Zoster: 12/17/2014 Dexa scan: 09/29/2016 showed Osteopenia. Assessment & Plan (10/11/2023 3:17 PM EST): Mammogram: 05/14/2023 Normal Pap Smear: NL: 02/14/2017 No need to continue given her age Colonoscopy: 11/10/2016 Pathology showed multiple tubular adenomas 5 year f/u recommended. She was referred to [facility], She was supposed to have a colonoscopy in January but this never happened, she is now scheduled for November 2023 Vaccines: tdap: 09/16/2010 Zoster: 12/17/2014 Dexa scan: 09/29/2016 showed Osteopenia. Assessment & Plan (06/26/2023 2:51 PM EST): Mammogram: 05/14/2023 Normal Pap Smear: NL: 02/14/2017 No need to continue given her age Colonoscopy: 11/10/2016 Pathology showed multiple tubular adenomas 5 year f/u recommended. She was referred to [facility], She was supposed to have a colonoscopy in January but today tells me she was never contacted by [employer]. Today my MA has contacted them to help facilitate this process for patient Vaccines: tdap: 09/16/2010 Zoster: 12/17/2014 Dexa scan: 09/29/2016 showed Osteopenia. Assessment & Plan (04/03/2023 2:57 PM EDT): Mammogram: 2022 Normal Pap Smear: NL: 02/14/2017 No need to continue given her age Colonoscopy: 11/10/2016 Pathology showed multiple tubular adenomas 5 year f/u recommended. She was referred to [facility], She was supposed to have a colonoscopy in January but today tells me she was never contacted by [employer]. Today my MA has contacted them to help facilitate this process for patient Vaccines: tdap: 09/16/2010 Zoster: 12/17/2014 Dexa scan: 09/29/2016 showed Osteopenia. Assessment & Plan (12/19/2022 2:03 PM EDT): Mammogram: 2022 Normal Pap Smear: NL: 02/14/2017 No need to continue given her age Colonoscopy: 11/10/2016 Pathology showed multiple tubular adenomas 5 year f/u recommended. She was referred to [facility] Vaccines: tdap: 09/16/2010 Zoster: 12/17/2014 Dexa scan: 09/29/2016 showed Osteopenia. Low back pain radiating to left leg 12/19/2022 Assessment & Plan (09/02/2024 2:39 PM EST): Pt here for a follow up, previous visit came in with c/o new onset of low back pain with radiation to her left hip and left leg in the absence of any injury Symptoms were suggestive of sciatica Plan: muscle relaxant, pain control Plain films of LS spine showed: Spondylosis of lumbar sacral spine with degenerative disc changes most prominent at the L5-S1 level. No significant change compared with the lumbar sacral spine dating back to 2009. No acute abnormality X-rays of the left hip was normal Patient finished PT. Pt seen at [facility] received steroid injections with no good results MRI LS spine 08/05/2024 showed: MR/MR lumbar spine wo con IMPRESSION: 1. Mild mid lumbar levocurvature convex to the left at L2-L3 with trace grade 1 degenerative spondylolisthesis at L4-L5 without spondylolysis. 2. Discogenic degenerative changes primarily at L5-S1 and, to a lesser degree, at L3-L4 and L4-L5, as discussed above, with disc bulging and central disc protrusion at L5-S1 and disc bulging at L4-L5 with posterior element hypertrophic degenerative changes and [id number] spinal canal stenosis at L4-L5. Plan: referral to neurosurgeon Dr. shaffer 3. Disc bulging at L3-L4 and a small right subarticular disc protrusion at L2-L3 with posterior element hypertrophic degenerative changes and prominent dorsal fat pads without significant canal stenosis. 4. Severe left-sided and [id number] right-sided neural foraminal stenosis at L5-S1 with impingement on the exiting left L5 nerve root. [id number]-ha-vaamicyj bilateral neural foraminal stenosis at L4-L5 and [id number] left-sided and minimal right-sided foraminal stenosis at L3-L4. 5. Lower thoracic degenerative changes, as discussed above. Assessment & Plan (06/05/2024 2:47 PM EDT): Pt here for a follow up, previous visit came in with c/o new onset of low back pain with radiation to her left hip and left leg in the absence of any injury Symptoms were suggestive of sciatica Plan: muscle relaxant, pain control Plain films of LS spine showed: Spondylosis of lumbar sacral spine with degenerative disc changes most prominent at the L5-S1 level. No significant change compared with the lumbar sacral spine dating back to 2009. No acute abnormality X-rays of the left hip was normal Patient finished PT. Pt seen at [facility] received steroid injections with no good results Plan: MRI LS spine Assessment & Plan (10/11/2023 3:22 PM EST): Pt here for a follow up, previous visit came in with c/o new onset of low back pain with radiation to her left hip and left leg in the absence of any injury Symptoms were suggestive of sciatica Plan: muscle relaxant, pain control Plain films of LS spine showed: Spondylosis of lumbar sacral spine with degenerative disc changes most prominent at the L5-S1 level. No significant change compared with the lumbar sacral spine dating back to 2009. No acute abnormality X-rays of the left hip was normal Patient finished PT. Pt will be referred to [facility] Assessment & Plan (02/06/2023 2:44 PM EDT): Pt here for a follow up, previous visit came in with c/o new onset of low back pain with radiation to her left hip and left leg in the absence of any injury Symptoms were suggestive of sciatica Plan: muscle relaxant, pain control Plain films of LS spine showed: Spondylosis of lumbar sacral spine with degenerative disc changes most prominent at the L5-S1 level. No significant change compared with the lumbar sacral spine dating back to 2009. No acute abnormality X-rays of the left hip was normal PT eval ordered previous visit, pt tells me that she is currently undergoing treatment with good results. Assessment & Plan (12/19/2022 2:10 PM EDT): Pt with c/o new onset of low back pain with radiation to her left hip and left leg in the absence of any injury Symptoms suggestive of sciatica Plan: muscle relaxant, pain control Plain films of LS spine and left Hip PT eval Follow up after evaluation Left hip pain 12/19/2022 Assessment & Plan (09/02/2024 2:24 PM EST): Pt with persistent c/o left sided low back pain with radiation to left hip Plain films of hip normal. LS spine showed: Spondylosis of lumbar sacral spine with degenerative disc changes most prominent at the L5-S1 level. No significant change compared with the lumbar sacral spine dating back to 2009. No acute abnormality Under the care of [facility] seen in 02/2024 received steroid injections. With no good results Obtain MRI of Left hip 08/05/2024 showed: MR/MR hip LT wo con IMPRESSION: 1. Nondisplaced undersurface tear of the anterosuperior labrum with extension to the lateral and posterior superior labrum. Posterosuperior paralabral cyst measuring up to 1.4 cm. 2. Mild left hip osteoarthritis. No stress reaction, fracture, or avascular necrosis. 3. Mild gluteus medius and gluteus minimus tendinosis. Moderate proximal left hamstring tendinosis with longitudinal intrasubstance partial tearing measuring up to 4 cm in craniocaudal dimension. No full-thickness transverse tendon tear or tendon retraction. 4. Mild greater trochanteric bursitis. 5. Degenerative disc disease and facet arthropathy at L5-S1. Pt is already scheduled to see Ortho 09/08/2024 Assessment & Plan (06/05/2024 2:47 PM EDT): Pt with persistent c/o left sided low back pain with radiation to left hip Plain films of hip normal. LS spine showed: Spondylosis of lumbar sacral spine with degenerative disc changes most prominent at the L5-S1 level. No significant change compared with the lumbar sacral spine dating back to 2009. No acute abnormality Under the care of [facility] seen in 02/2024 received steroid injections. With no good results Plan: Obtain MRI of Left hip Assessment & Plan (01/10/2024 2:42 PM EDT): Pt with previous c/o left sided low back pain with radiation to left hip Plain films of hip normal. LS spine showed: Spondylosis of lumbar sacral spine with degenerative disc changes most prominent at the L5-S1 level. No significant change compared with the lumbar sacral spine dating back to 2009. No acute abnormality Under the care of [facility] seen in October received steroid injections with somewhat good results Assessment & Plan (10/11/2023 3:20 PM EST): Pt with previous c/o left sided low back pain with radiation to left hip Plain films of hip normal. LS spine showed: Spondylosis of lumbar sacral spine with degenerative disc changes most prominent at the L5-S1 level. No significant change compared with the lumbar sacral spine dating back to 2009. No acute abnormality Assessment & Plan (12/19/2022 2:11 PM EDT): Pt with c/o left sided low back pain with radiation to left hip Etiology ? Plan: Plain films of hip, PT eval History of CVA (cerebrovascular accident) 2017 Overview (12/19/2022): 09/2017 Assessment & Plan (06/26/2023 2:51 PM EST): Pt is here for a f/u. She was seen by Neurology 06/26/2018 Dr. Scott with NO specific recommendations. Pt is S/p CVA that presented as dizziness and heavy feeling in the right side of her arm and leg and unsteadiness of gait. MRI of brain revealed an area of restricted diffusion in left posterior limb of internal capsule. FLAIR sequence also revealed hyperintensity but otherwise no significant lesion MRA of brain did not reveal any proximal vascular lesion. Left NURSE GYNECOLOGY anomaly was noted. Of note She was not be treated with TPA for timing reasons. Her vascular imaging did not reveal any large vessel lesion. The real etiology of the stroke is somewhat unclear. Pt was evaluated by Neurology who mentioned that he would consider atypical explanation including possibility of malignancy. He recommended antiplatelet agent and statin. Worthwhile mentioning pt is up-to-date on all of her Cancer Screening test as per her age ( Pap 02/14/2017, Mammo 05/14/2023, Colorectal Ca Screen 11/10/2016 ) EGD 09/30/2018 showed multiple polyps according to radiation therapist of benign appearance. She completed her treatment for H.Pilori Of not her ESR, CBC and CT of abdomen and pelvis were unremarkable. Pt was referred to Hem/Onc for evaluation to rule out occult malignancy they reviewed the request and recommended that pt be seen by Neurology first and only if Neurology thought appropriate to then refer back to them. Neurology made NO recommendations regarding this or duration of Plavix Assessment & Plan (12/19/2022 12:01 PM EDT): Pt is here for a f/u. She was seen by Neurology 06/26/2018 Dr. Scott with NO specific recommendations. Pt is S/p CVA that presented as dizziness and heavy feeling in the right side of her arm and leg and unsteadiness of gait. MRI of brain revealed an area of restricted diffusion in left posterior limb of internal capsule. FLAIR sequence also revealed hyperintensity but otherwise no significant lesion MRA of brain did not reveal any proximal vascular lesion. Left NURSE GYNECOLOGY anomaly was noted. Of note She was not be treated with TPA for timing reasons. Her vascular imaging did not reveal any large vessel lesion. The real etiology of the stroke is somewhat unclear. Pt was evaluated by Neurology who mentioned that he would consider atypical explanation including possibility of malignancy. He recommended antiplatelet agent and statin. Worthwhile mentioning pt is up-to-date on all of her Cancer Screening test as per her age ( Pap 02/14/2017, Mammo 04/02/2019, Colorectal Ca Screen 11/10/2016 ) EGD 09/30/2018 showed multiple polyps according to radiation therapist of benign appearance. She completed her treatment for H.Pilori Of not her ESR, CBC and CT of abdomen and pelvis were unremarkable. Pt was referred to Hem/Onc for evaluation to rule out occult malignancy they reviewed the request and recommended that pt be seen by Neurology first and only if Neurology thought appropriate to then refer back to them. Neurology made NO recommendations regarding this or duration of Plavix Tubular adenoma of colon 11/26/2016 Assessment & Plan (01/10/2024 2:43 PM EDT): She had a colonoscopy 10/2016 showed Tubular adenomas Pt was referred to [facility] last year. Scheduled for January 2023 according to patient, but today tells me she was given the prep but was never contacted to schedule the procedure. I asked my MA to contact [facility] on her behalf. Their response was that they would book her for October next year. Pt does not want to wait that long Pt had erpeat colonoscopy with Dr Dr. Smalls 11/2023 Assessment & Plan (10/11/2023 3:11 PM EST): She had a colonoscopy 10/2016 showed Tubular adenomas Pt was referred to [facility] last year. Scheduled for January 2023 according to patient, but today tells me she was given the prep but was never contacted to schedule the procedure. I asked my MA to contact [facility] on her behalf. Their response was that they would book her for October next year. Pt does not want to wait that long Pt scheduled for colonoscopy with Dr Dr. Smalls 11/2023 Assessment & Plan (04/03/2023 3:07 PM EDT): She had a colonoscopy 10/2016 showed Tubular adenomas Pt was referred to [facility] last year. Scheduled for January 2023 according to patient, but today tells me she was given the prep but was never contacted to schedule the procedure. I asked my MA to contact [facility] on her behalf. Their response was that they would book her for October of next year. Pt does not want to wait that long Plan: Will refer to Dr. Smalls, pt agreeable Assessment & Plan (12/19/2022 2:27 PM EDT): She had a colonoscopy 10/2016 showed Tubular adenomas Pt was referred to [facility] last year. Scheduled for January 2023 according to patient Pure hyperglyceridemia 11/23/2016 Osteopenia 04/16/2012 Assessment & Plan (02/06/2023 2:42 PM EDT): Seen on Bone densitometry 12/27/2022 Pt was taking Calcium but pt tells me she cannot tolerate it. She declines to take it, she is vague about it. Hx of abnormal cervical Pap smear 04/16/2012 Assessment & Plan (12/19/2022 12:05 PM EDT): Pt has a Hx of Hx of HGSIL 10/2011 w/ colpo., normal pap 2012 w/p HPV testing Most recent Pap with HPV done on 02/14/2017 was Negative Resolved Problems Problem Noted Date Diagnosed Date Resolved Date Influenza A 10/11/2023 06/05/2024 Assessment & Plan (10/11/2023 3:33 PM EST): Dry cough x 3 days, intermittent fevers and chills Positive for Influenza type A Plan: Tamiflu 75 mg po BID x 5 days Encounters Date Type Department Care Team Description 09/09/2024 Telephone [facility] [address] [place] [address] Ryan Latif MD 09/03/2024 Telephone [facility] [address] [facility] [place] [phone] Ryan Latif MD 09/02/2024 2:15 PM EST Office [facility] [address] [facility] [place] [address] Ryan Latif MD Left hip pain (Primary Dx); Type 2 diabetes mellitus without complication, without long-term current use of insulin ([facility]); Low back pain radiating to left leg; Thrombocytopenia ([facility]); Preventative health care; Overweight (BMI 25.0-29.9); Dietary counseling; Exercise counseling 09/02/2024 Telephone [facility] [address] [place] [phone] Sarah Hogan MA Durable Medical Equipment 09/02/2024 Travel 08/18/2024 Telephone [facility] [address] [place] [address] Ryan Latif MD Chart Prep 08/06/2024 Telephone [facility] [address] [place] [phone] Ryan Latif MD 07/29/[address] [phone] Eliane Kaplan RN Results 07/29/2024 Orders Only [facility] [address] [place] [phone] Ryan Latif MD Left hip pain (Primary Dx) 07/15/2024 Telephone [facility] [address] [place] [phone] Sarah Hogan MA Durable Medical Equipment 07/11/[address] [address] Ryan Latif MD Durable Medical Equipment from Last 3 Months Immunizations Name Administration Dates Next Due Influenza High-dose Quadriva lent Preservative Free 05/30/2022,05/17/2021 Influenza Injectable Quadriv alant Preservative Free IIV4 MDCK 07/31/2019 Influenza injectable quadriv alent IIV4 with preservative 07/04/2016 Influenza injectable quadriv alent preservative free 05/31/2017,05/24/2015 Influenza, High Dose Seasona l, Preservative Free 06/05/2024,05/14/2018 Influenza, Split (incl. keegan fied surface antigen) 06/25/2013,04/16/2012 Moderna Covid-19 Vaccine 12+ 06/27/2021,11/18/19 21,10/20/2020 Pfizer Covid-19 Vaccine 12+ 06/05/2024, Pfizer Covid-19 Vaccine 12+ Bivalent 05/30/2022 Pneumococcal Conjugate PCV 13 11/23/2016 Tdap 04/20/2022,09/16/2010 Zoster, Recombinant 11/01/2022,08/30/2022 Zoster, live 12/17/2014 Social History Tobacco Use Types Packs/Day Years Used Date Smoking Tobacco: Never Passive Smoke Exposure: Never Smokeless Tobacco: Never Tobacco Cessation:Counseling Given: Not Answered Alcohol Use Standard Drinks/Week Comments Defer 0 [...] Orientation Straight 06/19/2022 10 :18 AM EDT Last Filed Vital Signs Vital Sign Reading Time Taken Comments Blood Pressure 128/72 09/02/2024 2:13 PM EST Pulse 86 09/02/2024 2:13 PM EST Temperature 35.7 ??C (96.2 ??F) 09/02/2024 2:13 PM ES T Respiratory Rate 20 09/02/2024 2:13 PM EST Oxygen Saturation 96% 09/02/2024 2:13 PM EST Inhaled Oxygen Concentration - - Weight 72.6 kg (160 lb) 09/02/2024 2:13 PM EST Height 157.5 cm (5' 2 ) 09/02/2024 2:13 PM EST Body Mass Index 29.26 09/02/2024 2:13 PM EST Plan of Treatment Health Maintenance Due Date Last Done Comments CT Colonography 1950 FIT DNA/Cologuard 1950 FIT 1950 FOBT 1950 Sigmoidoscopy 1950 Diabetes: Foot Exam 1960 Eye Exam 1960 Hepatitis C Screening 1968 Pneumococcal Vaccine: 65+ Years (2 of 2 - PPSV23 or PCV20) 01/18/2017 11/23/2016 Dental Prophylaxis 12/20/2021 06/21/2021, 0 10/27/2019, 04/24/2019, Additional history exists Dental Oral Exam 10/26/2023 04/26/2023, 09/2020, 07/31/2019, Additional history exists Diabetes: Urine Protein Screening 12/30/2023 12/29/2022, 04/01/2021 Dental X-Ray: Bitewings 04/27/2024 04/26/20 23, 06/21/2021, 07/31/2019, Additional history exists Depression Screening 01/09/2025 01/10/2024, 01/10/20 24 SDOH Screening 01/09/2025 01/10/2024 Diabetes: Hemoglobin A1C 03/02/2025 025, 06/05/2024, 01/10/2024, Additional history exists RSV Patients and Patients Aged 60 years or older (1 - 1-dose 75+ series) 2025 Mammogram 05/26/2025 05/26/2024, 04/21, 2022, Additional history exists Alcohol/Substance Use Screening 06/05/2025 06/05/2024 Tobacco Screening 09/02/2025 09/02/2024 Lipid Panel 09/11/2025 09/11/2024, 10/18, 12/29/2022, Additional history exists Dental X-Ray: Full Mouth 04/27/2026 023, 06/21/2021, 01/03/2017 Colonoscopy 11/29/2028 11/30/2023, 11/10/2016 Colorectal Cancer Screening 11/29/2028 DTaP/Tdap/Td Vaccines (3 - Td or Tdap) 04/20/2032 04/20/2022, 09/16/2010 Zoster Vaccines Completed 11/01/2022, 08/20, 12/17/2014 COVID-19 Vaccine Completed 06/05/2024, 02/2024, 05/30/2022, Additional history exists Influenza Vaccine Completed 06/05/2024, , 05/17/2021, Additional history exists HIB Vaccines Aged Out No longer eligi ble based on patient's age to complete this topic HPV Vaccines Aged Out No longer eligi ble based on patient's age to complete this topic Hepatitis A Vaccines Aged Out No long er eligible based on patient's age to complete this topic Hepatitis B Vaccines Aged Out No long er eligible based on patient's age to complete this topic IPV Vaccines Aged Out No longer eligi ble based on patient's age to complete this topic Meningococcal Vaccine Aged Out No anabelle judy eligible based on patient's age to complete this topic RSV under 20 months Aged Out No longe r eligible based on patient's age to complete this topic Rotavirus Vaccines Aged Out No longer eligible based on patient's age to complete this topic Procedures Procedure Name Priority Date/Time Associated Diagnosis Comments TSH W/REFLEX TO FT4 Routine 09/11/2024 1 0:53 AM EST Type 2 diabetes mellitus without complication, without long-term current use of insulin ([facility]) LIPID PANEL, STANDARD Routine 09/11/2024 10:53 AM EST Type 2 diabetes mellitus without complication, without long-term current use of insulin (CMS/HCC) COMPREHENSIVE METABOLIC PANEL Routine 09/11/2024 10:53 AM EST Type 2 diabetes mellitus without complication, without long-term current use of insulin (CMS/HCC) POCT GLYCATED HEMOGLOBIN, TOTAL Routine 09/02/2024 2:27 PM EST Type 2 diabetes mellitus without complication, without long-term current use of insulin (CMS/HCC) POCT GLUCOSE Routine 09/02/2024 2:18 PM EST Type 2 diabetes mellitus without complication, without long-term current use of insulin (CMS/HCC) MR HIP WO CONTRAST LEFT Routine 07/08/2024 12:11 PM EST Left hip pain MR LUMBAR SPINE WO CONTRAST Routine 07/08/2024 11:51 AM EST Low back pain radiating to left leg BI MAMMOGRAM SCREENING TOMOSYNTHESIS BILATERAL Routine 05/26/2024 3:30 PM EDT HM COLONOSCOPY Routine 11/30/2023 DIAGNOSTIC - DIAGNOSTIC IMAGING - INTRAORAL - COMPREHENSIVE SERIES OF RADIOGRAPHIC IMAGES Routine 04/26/2023 1:30 PM EDT PERIODIC ORAL EVALUATION - ESTABLISHED PATIENT Routine 04/26/2023 1:30 PM EDT ALBUMIN, RANDOM URINE W/O CREATININE Routine 12/29/2022 9:16 AM EDT Type 2 diabetes mellitus without complication, without long-term current use of insulin (CMS/HCC) PROPHYLAXIS - ADULT Routine 06/21/2021 1 2:00 AM EDT from Last 3 Months or Most Recently Relevant to Health Maintenance Results * TSH with Reflex to Free T4 (09/11/2024 10:53 AM EST) TSH reflex Free T4 1.78 0.32 - 4.0 uIU/mL [facility] Blood Venous blood specimen / Unknown 09/11/2024 10:53 AM EST 09/11/2024 11:33 AM EST yRan Bhardwaj MD LAB BLOOD ORDERABLES Final Result Performing Organization Address City/[facility]/ZIP Co de Phone Number [facility] [address] [place] [address] [phone] * Lipid Panel, Standard (09/11/2024 10:53 AM EST) Triglycerides 78 <150 mg/dL [facility] Comment:Desirable Triglyceri de: less than 150 mg/dLBorderline High Triglyceride 150-199 mg/dLHigh Triglyceride: 200-499 mg/dLVery High Triglyceride: greater than or equal to 5OO mg/dL Cholesterol 120 <200 mg/dL [facility] Comment:Desirable Cholestero l: less than 200 mg/dLBorderline High Cholesterol: 200-239 mg/dLHigh Cholesterol: greater than 239 mg/dL LDL Cholesterol Calculated 63 <100 mg/dL [facility] Comment:Desirable LDL: less than 100 mg/dLNear Optimal/Above Optimal LDL: 110- 129 mg/dLBorderline High LDL: 130-159 mg/dLHigh LDL: 160-189 mg/dLVery High LDL: greater than or equal to 190 mg/dL HDL Cholesterol 42 >40 mg/dL [facility] Comment:Desirable HDL: great er than 40 mg/dL Note: This HDL assay may give artificially low results in patients with liver disease. Blood Venous blood specimen / Unknown 09/11/2024 10:53 AM EST 09/11/2024 11:33 AM EST Ryan Bhardwaj MD LAB BLOOD ORDERABLES Final Result [facility] [address] [place] [phone] [phone] * (ABNORMAL) Comprehensive Metabolic Panel (09/11/2024 10:53 AM EST) Sodium 141 135 - 145 mmol/L [facility] Potassium 3.4 3.3 - 5.1 mmol/L [facility] Chloride 105 96 - 108 mmol/L [facility] Carbon Dioxide 29 22 - 29 mmol/L [facility] Anion Gap 10(L) 12 - 20 [facility] Urea Nitrogen (BUN) 10 9 - 16 mg/dL [facility] Creatinine, Serum 0.60 0.5 - 1.4 mg/dL [facility] Estimated Glomerular Filt Rate >60 [facility] Comment:Chronic Kidney Disea se: Estimated GFR < 60 mL/min/1.77v3Shhwxm Kidney Disease: Estimated GFR < 15 mL/min/1.73m2 Glucose 87 60 - 115 mg/dL [facility] Calcium 10.1 8.4 - 10.2 mg/dL [facility] Bilirubin, Total 0.6 0.0 - 1.0 mg/dL [facility] Aspartate Amino Transferase 32(H) 5 - 31 U/L [facility] Alanine Aminotransferase 38(H) 0 - 31 U/L [facility] Total Protein 7.9 6.5 - 8.0 g/dL [facility] Albumin Level 4.3 3.5 - 5.0 g/dL [facility] Alkaline Phosphatase 107 39 - 117 U/L [facility] Blood Venous blood specimen / Unknown 09/11/2024 10:53 AM EST 09/11/2024 11:33 AM EST us Ryan Bhardwaj MD LAB BLOOD ORDERABLES Final Result [facility] [address] [place] [address] [phone] * (ABNORMAL) POCT HGB A1C (09/02/2024 2:27 PM EST) Hemoglobin A1C 6.6(A) 4.0 - 6.0 % QC Media Lot # [id number] Lot# Expiration Date Blood 09/02/2024 2:27 PM EST us Ryan Bhardwaj MD POINT OF CARE TEST EN TER/EDIT ORDERABLES Final Result * POCT Glucose (09/02/2024 2:18 PM EST) Glucose Blood, POC 180 60 - 200 mg/dL QC Media Lot # [id number] Lot# Expiration Date Blood Capillary blood specimen / Unknown 09/02/2024 2:18 PM EST us Ryan Bhardwaj MD POINT OF CARE TEST EN TER/EDIT ORDERABLES Final Result * MR Hip w/o Contrast Left (07/08/2024 12:11 PM EST) Anatomical Region Laterality Modality Magnetic Resonan ce 07/08/2024 12:1 1 PM EST Narrative 07/18/2024 1:21 PM EST ? [facility] ?[address] ?[place] [address] ? Magnetic Resonance Report ? Signed ? Patient: Angelina Ma ?MR#: ?? [id number] ? : 1950 ?Acct:[id number] ? Age/Sex: 74 / F ?ADM Date: 07/08/24 ? Loc: HO.MRI ? Attending Dr: Ryan Randolph MD ? Ordering Physician: Ryan Randolph MD ?? Date of Service: 07/08/24 ?? Procedure(s): MR hip LT wo con ?? Accession Number(s): [id number] ? cc: Ryan Randolph MD ? EXAMINATION: ?? MR HIP WITHOUT CONTRAST, LEFT ? CLINICAL INFORMATION: ?? Left hip and left leg pain. Back pain. ? COMPARISON: ?? Left hip radiographs dated 12/19/2022. ? TECHNIQUE: ?? MRI of the left hip was obtained using routine sequences on a ?? high-field magnet. ? FINDINGS: ? ACETABULAR LABRUM: Linear fluid signal within the undersurface of the ?? anterosuperior labrum (sagittal image 14/), consistent with a ?? nondisplaced undersurface tear. Linear fluid signal/tear extends to the ?? undersurface of the lateral and posterosuperior labrum with a ?? posterosuperior paralabral cyst measuring up to 1.4 cm in greatest ?? dimension. ? ARTICULAR CARTILAGE/BONE: Mild articular cartilage signal heterogeneity ?? with small marginal osteophytes. No stress reaction, fracture, or ?? avascular necrosis. No concerning lytic or blastic osseous lesion. Mild ?? right hip osteoarthritis on large field of view imaging. Degenerative ?? disc disease and facet arthropathy at L5-S1. ? MUSCLES/TENDONS: Mild gluteus medius and gluteus minimus tendinosis. ?? Moderate proximal left hamstring tendinosis. Longitudinal ?? intrasubstance partial tearing of the proximal left hamstring tendon ?? measuring up to 4 cm in craniocaudal dimension. No full-thickness ?? transverse tendon tear or tendon retraction. ? JOINT FLUID/BURSA: No left hip joint effusion. Trace fluid and edema ?? within the greater trochanter bursa, consistent with mild bursitis. ? INTRAPELVIC STRUCTURES: Unremarkable. ? MR/MR hip LT wo con ?? IMPRESSION: ?? 1. Nondisplaced undersurface tear of the anterosuperior labrum with ?? extension to the lateral and posterior superior labrum. Posterosuperior ?? paralabral cyst measuring up to 1.4 cm. ? 2. Mild left hip osteoarthritis. No stress reaction, fracture, or ?? avascular necrosis. ? 3. Mild gluteus medius and gluteus minimus tendinosis. Moderate ?? proximal left hamstring tendinosis with longitudinal intrasubstance ?? partial tearing measuring up to 4 cm in craniocaudal dimension. No ?? full-thickness transverse tendon tear or tendon retraction. ? 4. Mild greater trochanteric bursitis. ? 5. Degenerative disc disease and facet arthropathy at L5-S1. ? Electronically signed by: ??Brandon Chacon MD ??07/18/2024 01:18 PM EST ?? RP ? Dictated By: ?Brandon Chacon MD ? Signed By: ?<Electronically signed by Brandon Chacon MD in OV> ?07/18/24 1318 ? DD/ 1211 ? TD/TT: 07/08/24 1228 ? Passenger Service Supervisor: SR ? Procedure Note Donotdariinterpreter, Image - 07/18/2024 [place] [id number] Magnetic Resonance Report Signed Patient: Angelina Ma MMR#: [id number] : 1950Acct:[id number] Age/Sex: 74 / FADM Date: 07/08/24 Loc: HO.MRI Attending Dr: Ryan Randolph MD Ordering Physician: Ryan Randolph MD Date of Service: 07/08/24 Procedure(s): MR hip LT wo con Accession Number(s): [id number] cc: Ryan Randolph MD EXAMINATION: MR HIP WITHOUT CONTRAST, LEFT CLINICAL INFORMATION: Left hip and left leg pain. Back pain. COMPARISON: Left hip radiographs dated 12/19/2022. TECHNIQUE: MRI of the left hip was obtained using routine sequences on a high-field magnet. FINDINGS: ACETABULAR LABRUM: Linear fluid signal within the undersurface of the anterosuperior labrum (sagittal image /), consistent with a nondisplaced undersurface tear. Linear fluid signal/tear extends to the undersurface of the lateral and posterosuperior labrum with a posterosuperior paralabral cyst measuring up to 1.4 cm in greatest dimension. ARTICULAR CARTILAGE/BONE: Mild articular cartilage signal heterogeneity with small marginal osteophytes. No stress reaction, fracture, or avascular necrosis. No concerning lytic or blastic osseous lesion. Mild right hip osteoarthritis on large field of view imaging. Degenerative disc disease and facet arthropathy at L5-S1. MUSCLES/TENDONS: Mild gluteus medius and gluteus minimus tendinosis. Moderate proximal left hamstring tendinosis. Longitudinal intrasubstance partial tearing of the proximal left hamstring tendon measuring up to 4 cm in craniocaudal dimension. No full-thickness transverse tendon tear or tendon retraction. JOINT FLUID/BURSA: No left hip joint effusion. Trace fluid and edema within the greater trochanter bursa, consistent with mild bursitis. INTRAPELVIC STRUCTURES: Unremarkable. MR/MR hip LT wo con IMPRESSION: 1. Nondisplaced undersurface tear of the anterosuperior labrum with extension to the lateral and posterior superior labrum. Posterosuperior paralabral cyst measuring up to 1.4 cm. 2. Mild left hip osteoarthritis. No stress reaction, fracture, or avascular necrosis. 3. Mild gluteus medius and gluteus minimus tendinosis. Moderate proximal left hamstring tendinosis with longitudinal intrasubstance partial tearing measuring up to 4 cm in craniocaudal dimension. No full-thickness transverse tendon tear or tendon retraction. 4. Mild greater trochanteric bursitis. 5. Degenerative disc disease and facet arthropathy at L5-S1. Electronically signed by: Brandon Chacon MD 07/18/2024 01:18 PM EST Dictated By: Brandon Chacon MD Signed By: <Electronically signed by Brandon Chacon MD in OV> 07/18/24 1318 DD/ 1211 TD/TT: 07/08/24 1228 Passenger Service Supervisor: SR us Ryan Bhardwaj MD IMG MRI PROCEDURES Ed ited Result - Final * MR Lumbar Spine w/o Contrast (07/08/2024 11:51 AM EST) Anatomical Region Laterality Modality Spine, L-spine Magnetic Resonan ce 07/08/2024 11:5 1 AM EST Narrative 09/01/2024 2:36 PM EST ? [facility] ?[address] ?[place] [address] ? Magnetic Resonance Report ? Signed ? Patient: Rene Fang,Angelina M ?MR#: ?? [id number] ? : 1950 ?Acct:[id number] ? Age/Sex: 74 / F ?ADM Date: 11/19/24 ? Loc: HO.MRI ? Attending Dr: Ryan Randolph MD ? Ordering Physician: Ryan Randolph MD ?? Date of Service: 07/08/24 ?? Procedure(s): MR lumbar spine wo con ?? Accession Number(s): [id number] ? cc: Ryan Randolph MD ? EXAMINATION: ?? MR LUMBAR SPINE WITHOUT CONTRAST ? CLINICAL INFORMATION: ?? 74-year-old with chronic low back pain. ? COMPARISON: ?? 12/19/2022 x-rays. ? TECHNIQUE: ?? MRI of the lumbar spine was obtained using routine sequences without ?? contrast. ? FINDINGS: ? Coronal Alignment: Mild mid lumbar levocurvature convex to the left at ?? L2-L3, stable from previous x-rays. ? Sagittal Alignment: There is 1.5 mm of grade 1 anterolisthesis at L4-L5 ?? without spondylolysis, noted only on MRI. Otherwise normal alignment in ?? the sagittal plane. ? Lumbosacral Junction: Normal. There are 5 [id number] lumbar-type ?? vertebral bodies. ? Vertebral Bodies: Vertebral body heights are well maintained. No acute ?? or non-healed fractures are identified. ? Disc Spaces and Endplates: [id number] intervertebral disc space ?? height loss at L5-S1 is noted with intradiscal vacuum disc phenomenon, ?? intradiscal degenerative signal changes, anterior and paravertebral ?? spondylosis. Mild degrees of disc volume loss are noted at L3-L4 and ?? L4-L5 with mild intradiscal degenerative signal changes and minor ?? spondylosis. Endplates appear grossly intact. Discogenic degenerative ?? changes with disc space height loss, intradiscal degenerative signal ?? changes and [id number] degrees of spondylosis are also noted at ?? T11-T12, T10-T11 and T9-T10 with bulky hypertrophic bridging ?? osteophytosis asymmetric to the right at T9-T10 and partially imaged at ?? T8-T9. ? Spinal Canal: No abnormal developmental findings. ? Bone Marrow: There are type I and type III degenerative marrow signal ?? changes seen along the anterior endplates of T10-T11. Minimal type II ?? marrow signal changes are seen along the endplates at L5-S1. There is a ?? 7 mm benign vertebral hemangioma within the T9 vertebral body ?? posteriorly. ? Conus Medullaris: Terminates at T12-L1. Morphology and signal is normal. ? Intradural Nerve Roots: Within normal limits. ? L5-S1: There is diffuse disc bulging with a superimposed central disc ?? protrusion with minimal indentation of the ventral thecal sac. Disc ?? material contacts the S1 nerve root sleeves bilaterally without nerve ?? root impingement or displacement. There is moderate left and mild ?? right-sided facet joint arthropathy without significant spinal canal ?? stenosis. There is etenptwi-uq-owuxif right-sided and severe left-sided ?? neural foraminal stenosis, with impingement on the exiting left L5 ?? nerve root. ? L4-L5: Slight unroofing of the posterior disc margin is noted ?? consistent with minimal grade 1 degenerative spondylolisthesis. There ?? is severe bilateral facet joint arthrosis with marked ligamentum flavum ?? thickening and slightly prominent epidural fat. There is concentric ?? disc bulging with mild encroachment on the ventral dural sac. There is ?? ozsr-bq-caqaycbv central spinal canal stenosis with mild narrowing of ?? the left and right lateral recesses without definite traversing neural ?? impingement. There is vjeg-ue-fopmoxhb bilateral neural foraminal ?? stenosis. ? L3-L4: Mild disc bulging is noted. Qnik-vs-ohwcvtid bilateral facet ?? joint arthropathy is noted. Prominent dorsal fat pad noted. No ?? significant canal stenosis. Mmbm-bv-xkgunzne left-sided and minimal ?? right-sided foraminal stenosis. ? L2-L3: Small right-sided subarticular disc protrusion. No neural ?? impingement. Ujmf-hm-jwyecrvh facet joint arthropathy bilaterally with ?? ligamentum flavum thickening and a prominent dorsal fat pad. No ?? significant canal or neural foraminal stenosis. ? L1-L2: Normal annular contour. No facet joint arthropathy, canal or ?? foraminal stenosis. ? T12-L1: Normal annular contour. No facet arthrosis, canal or foraminal ?? stenosis. ? 0.7 cm perineural cyst noted in the left T10-T11 neural foramen. 5 mm ?? perineural cyst in the left T9-T10 neural foramen. ? Paravertebral and Included Extraspinal Soft Tissues: The paravertebral ?? soft tissues are unremarkable. 3.5 cm ovoid simple-appearing cyst in ?? the posterior cortex of the interpolar to lower pole segment of the ?? left kidney, a few 1 cm simple-appearing parapelvic renal cysts in the ?? interpolar to upper pole segment of the left kidney, and a 1.2 cm ?? simple-appearing cortical cyst upper pole right kidney. Limited ?? evaluation. No specific followup recommended based on the current ACR ?? Best Practice Guidelines. ? MR/MR lumbar spine wo con ?? IMPRESSION: ?? 1. Mild mid lumbar levocurvature convex to the left at L2-L3 with trace ?? grade 1 degenerative spondylolisthesis at L4-L5 without spondylolysis. ? 2. Discogenic degenerative changes primarily at L5-S1 and, to a lesser ?? degree, at L3-L4 and L4-L5, as discussed above, with disc bulging and ?? central disc protrusion at L5-S1 and disc bulging at L4-L5 with ?? posterior element hypertrophic degenerative changes and ?? whmw-xo-iukhrqbh spinal canal stenosis at L4-L5. ? 3. Disc bulging at L3-L4 and a small right subarticular disc protrusion ?? at L2-L3 with posterior element hypertrophic degenerative changes and ?? prominent dorsal fat pads without significant canal stenosis. ? 4. Severe left-sided and ehlnhlwd-nb-plpycj right-sided neural ?? foraminal stenosis at L5-S1 with impingement on the exiting left L5 ?? nerve root. Ziyb-qc-gewyvljv bilateral neural foraminal stenosis at ?? L4-L5 and kzcg-gn-uvarfvcy left-sided and minimal right-sided foraminal ?? stenosis at L3-L4. ? 5. Lower thoracic degenerative changes, as discussed above. ? Electronically signed by: ??Armando Costa MD ??09/01/2024 02:33 PM EST RP ? Dictated By: ?JULISSA,ARMANDO L MD ? Signed By: ?<Electronically signed by ARMANDO COSTA MD in OV> ? 09/01/24 1433 ? DD/ 1151 ? TD/TT: 07/08/24 1204 ? Passenger Service Supervisor: ? Procedure Note Donotuseinterpreter, Image - 09/01/[address] [address] Magnetic Resonance Report Signed Patient: Angelina Ma [facility]#: [id number] : 1950Acct:[id number] Age/Sex: 74 / FADM Date: 07/08/24 Loc: HO.MRI Attending Dr: Ryan Randolph MD Ordering Physician: Ryan Randolph MD Date of Service: 07/08/24 Procedure(s): MR lumbar spine wo con Accession Number(s): [id number] cc: Ryan Randolph MD EXAMINATION: MR LUMBAR SPINE WITHOUT CONTRAST CLINICAL INFORMATION: 74-year-old with chronic low back pain. COMPARISON: 12/19/2022 x-rays. TECHNIQUE: MRI of the lumbar spine was obtained using routine sequences without contrast. FINDINGS: Coronal Alignment: Mild mid lumbar levocurvature convex to the left at L2-L3, stable from previous x-rays. Sagittal Alignment: There is 1.5 mm of grade 1 anterolisthesis at L4-L5 without spondylolysis, noted only on MRI. Otherwise normal alignment in the sagittal plane. Lumbosacral Junction: Normal. There are 5 utg-ety-aslpjpp lumbar-type vertebral bodies. Vertebral Bodies: Vertebral body heights are well maintained. No acute or non-healed fractures are identified. Disc Spaces and Endplates: Jmvrvicc-uj-yjbklc intervertebral disc space height loss at L5-S1 is noted with intradiscal vacuum disc phenomenon, intradiscal degenerative signal changes, anterior and paravertebral spondylosis. Mild degrees of disc volume loss are noted at L3-L4 and L4-L5 with mild intradiscal degenerative signal changes and minor spondylosis. Endplates appear grossly intact. Discogenic degenerative changes with disc space height loss, intradiscal degenerative signal changes and tyig-lm-unyjcvlx degrees of spondylosis are also noted at T11-T12, T10-T11 and T9-T10 with bulky hypertrophic bridging osteophytosis asymmetric to the right at T9-T10 and partially imaged at T8-T9. Spinal Canal: No abnormal developmental findings. Bone Marrow: There are type I and type III degenerative marrow signal changes seen along the anterior endplates of T10-T11. Minimal type II marrow signal changes are seen along the endplates at L5-S1. There is a 7 mm benign vertebral hemangioma within the T9 vertebral body posteriorly. Conus Medullaris: Terminates at T12-L1. Morphology and signal is normal. Intradural Nerve Roots: Within normal limits. L5-S1: There is diffuse disc bulging with a superimposed central disc protrusion with minimal indentation of the ventral thecal sac. Disc material contacts the S1 nerve root sleeves bilaterally without nerve root impingement or displacement. There is moderate left and mild right-sided facet joint arthropathy without significant spinal canal stenosis. There is qybcufaz-zs-gqccwo right-sided and severe left-sided neural foraminal stenosis, with impingement on the exiting left L5 nerve root. L4-L5: Slight unroofing of the posterior disc margin is noted consistent with minimal grade 1 degenerative spondylolisthesis. There is severe bilateral facet joint arthrosis with marked ligamentum flavum thickening and slightly prominent epidural fat. There is concentric disc bulging with mild encroachment on the ventral dural sac. There is twhq-wy-xnrascyd central spinal canal stenosis with mild narrowing of the left and right lateral recesses without definite traversing neural impingement. There is hzeh-pp-hndjsevq bilateral neural foraminal stenosis. L3-L4: Mild disc bulging is noted. Gjel-qy-viviqupj bilateral facet joint arthropathy is noted. Prominent dorsal fat pad noted. No significant canal stenosis. Mhwn-dn-mztpahyj left-sided and minimal right-sided foraminal stenosis. L2-L3: Small right-sided subarticular disc protrusion. No neural impingement. Vwgm-ta-xgjbpmwl facet joint arthropathy bilaterally with ligamentum flavum thickening and a prominent dorsal fat pad. No significant canal or neural foraminal stenosis. L1-L2: Normal annular contour. No facet joint arthropathy, canal or foraminal stenosis. T12-L1: Normal annular contour. No facet arthrosis, canal or foraminal stenosis. 0.7 cm perineural cyst noted in the left T10-T11 neural foramen. 5 mm perineural cyst in the left T9-T10 neural foramen. Paravertebral and Included Extraspinal Soft Tissues: The paravertebral soft tissues are unremarkable. 3.5 cm ovoid simple-appearing cyst in the posterior cortex of the interpolar to lower pole segment of the left kidney, a few 1 cm simple-appearing parapelvic renal cysts in the interpolar to upper pole segment of the left kidney, and a 1.2 cm simple-appearing cortical cyst upper pole right kidney. Limited evaluation. No specific followup recommended based on the current ACR Best Practice Guidelines. MR/MR lumbar spine wo con IMPRESSION: 1. Mild mid lumbar levocurvature convex to the left at L2-L3 with trace grade 1 degenerative spondylolisthesis at L4-L5 without spondylolysis. 2. Discogenic degenerative changes primarily at L5-S1 and, to a lesser degree, at L3-L4 and L4-L5, as discussed above, with disc bulging and central disc protrusion at L5-S1 and disc bulging at L4-L5 with posterior element hypertrophic degenerative changes and nwsc-io-mowtayxf spinal canal stenosis at L4-L5. 3. Disc bulging at L3-L4 and a small right subarticular disc protrusion at L2-L3 with posterior element hypertrophic degenerative changes and prominent dorsal fat pads without significant canal stenosis. 4. Severe left-sided and zpehsxma-pg-bicagm right-sided neural foraminal stenosis at L5-S1 with impingement on the exiting left L5 nerve root. Xhxm-yg-cmwicnbn bilateral neural foraminal stenosis at L4-L5 and urwo-sj-kpbmeedu left-sided and minimal right-sided foraminal stenosis at L3-L4. 5. Lower thoracic degenerative changes, as discussed above. Electronically signed by: Armando Costa MD 09/01/2024 02:33 PM [facility] Dictated By: ARMANDO COSTA MD Signed By: <Electronically signed by ARMANDO COSTA MD in OV> 09/01/24 1433 DD/ 1151 TD/TT: 07/08/24 1204 Passenger Service Supervisor: us Ryan Bhardwaj MD IMG MRI PROCEDURES Fi nal Result * BI Mammogram Screening Tomosynthesis Bilateral (05/26/2024 3:30 PM EDT) Anatomical Region Laterality Modality Breast Bilateral Mammography 05/26/2024 3:30 PM EDT Narrative 06/06/2024 4:48 PM EDT ? [facility] ? [address] ?[place] [address] ? Mammography Report ? Signed ? Patient: López Annalisa,Angelina M ?MR#: ?? [id number] ? : 1950 ?Acct:[id number] ? Age/Sex: 74 / F ?ADM Date: 05/26/24 ? Loc: HO.MAMMO ? Attending Dr: Ryan Randolph MD ? Ordering Physician: Ryan Randolph MD ?Resu ?? lts: 2Benign Findings ? Date of Service: 05/26/24 ?Follow Up: 1 Year From Orig ?? inal Mammogram ? Procedure(s): MM tomosynthesis screening BI ?? Accession Number(s): [id number] ? cc: Ryan Randolph MD ? EXAMINATION: ?? MM SCREENING DIGITAL BREAST TOMOSYNTHESIS, BILATERAL ? CLINICAL INFORMATION: ? Screening. Asymptomatic. ? COMPARISON: ?? Mammography: Comparison is made with available priors ? TECHNIQUE: ?? Digital breast mammography with tomosynthesis is performed in both the ?? craniocaudal and mediolateral oblique views along with computer-aided ?? detection (CAD). ? FINDINGS: ?? There are scattered areas of fibroglandular density (ACR BI-RADS breast ?? composition Category b). ?? Bilateral rim calcifications are stable and benign. ?? There are no significant masses, abnormal calcifications, or other ?? abnormalities. ? MM/MM tomosynthesis screening BI ?? IMPRESSION: ?? No mammographic evidence of malignancy. ? ASSESSMENT: ? BI-RADS BI-RADS 2 - Benign Findings ? RECOMMENDATION: ?? Routine annual mammography screening. ? 1 year F/U ? This examination should not preclude the clinical evaluation of a ?? suspicious palpable abnormality. ? This patient's information was entered into a reminder system with a ?? target due date for their next mammogram. ? Electronically signed by: ??Valeria Rogers DO ??06/06/2024 04:45 PM EDT ? Dictated By: ?Valeria Rogers DO ? Signed By: ?<Electronically signed by Valeria Rogers, DO in OV> ? 06/06/24 1645 ? DD/ 1530 ? TD/TT: 05/26/24 1543 ? Passenger Service Supervisor: ? Procedure Note Sergio, Sonali - 06/06/2024 [facility] [address] [place] [address] [place] [address] Mammography Report Signed Patient: Angelina Ma [facility]#: [id number] : 1950Acct:[id number] Age/Sex: 74 / FADM Date: 05/26/24 Loc: HO.MAMMO Attending Dr: Ryan Randolph MD Ordering Physician: Ryan Randolph MDResu lts: 2Benign Findings Date of Service: 05/26/24Follow Up: 1 Year From Orig inal Mammogram Procedure(s): MM tomosynthesis screening BI Accession Number(s): [id number] cc: Ryan Randolph MD EXAMINATION: MM SCREENING DIGITAL BREAST TOMOSYNTHESIS, BILATERAL CLINICAL INFORMATION: Screening. Asymptomatic. COMPARISON: Mammography: Comparison is made with available priors TECHNIQUE: Digital breast mammography with tomosynthesis is performed in both the craniocaudal and mediolateral oblique views along with computer-aided detection (CAD). FINDINGS: There are scattered areas of fibroglandular density (ACR BI-RADS breast composition Category b). Bilateral rim calcifications are stable and benign. There are no significant masses, abnormal calcifications, or other abnormalities. MM/MM tomosynthesis screening BI IMPRESSION: No mammographic evidence of malignancy. ASSESSMENT: BI-RADS BI-RADS 2 - Benign Findings RECOMMENDATION: Routine annual mammography screening. 1 year F/U This examination should not preclude the clinical evaluation of a suspicious palpable abnormality. This patient's information was entered into a reminder system with a target due date for their next mammogram. Electronically signed by: Valeria Rogers DO 06/06/2024 04:45 PM EDT RP Dictated By: Valeria Rogers DO Signed By: <Electronically signed by Valeria Rogers DO in OV> 06/06/24 1645 DD/ 1530 TD/TT: 05/26/24 1543 Passenger Service Supervisor: Ryan Bhardwaj MD IMG BI PROCEDURES Fin al Result * Colonoscopy (11/30/2023) Colonoscopy Normal Normal Historical Provider HEALTH MAINTENANCE Final Result * Albumin, Random Urine W/O Creatinine (12/29/2022 9:16 AM EDT) Albumin, Urine 0.6 See Note: mg/dL [facility] Comment: Reference Range: Reference Range Not established [facility] Comment: The ADA defines abnormalities in albumin excretion as follows: Albuminuria Category ? Result (mcg/mg creatinine) Normal to Mildly increased ?<30 Moderately increased ?30-299 Severely increased ?> OR = 300 The ADA recommends that at least two of three specimens collected within a 3-6 month period be abnormal before considering a patient to be within a diagnostic category. Urine Urine specimen obtained by clean catch procedure / Unknown 12/29/2022 9:16 AM EDT 12/29/2022 9:18 AM EDT Narrative [facility] - 12/29/2022 9:12 PM EDT FASTING:YES FASTING: YES us Ryan Bhardwaj MD LAB URINE ORDERABLES Final Result [facility] [address] [facility], [facility], [place] [address] [facility] [address] [place] [address] from Last 3 Months or Most Recently Relevant to Health Maintenance Insurance [facility] - [facility] Care Teams Bobbin Disker Relationship Specialty Start Date End Date Ryan Latif MD [address] [place] [id number] PCP - General Internal Medicine 05/20/14
--- OUTSIDE RECORDS SUMMARY | 2024-09-15 14:38 | XMS_ITS | Encounter Summary ---
Author Organization [employer] Address [address] [facility] 7[address] [place] [address] Care Team Providers Care Marble Machine Tender Name Role Phone Ryan Latif MD Primary Care Provide r Reason for Referral * Consultation (Routine) - Authorized Specialty Diagnoses / Procedures Referred By Katelyn luna Referred To Contact Podiatry Diagnoses Type 2 diabetes mellitus without complication, without long-term current use of insulin ([facility]) Ryan Latif MD [address] [place] [address] Phone: tel: fax: Vance Judd DPM [address] [facility] [address] [place] [address] Phone: tel: fax: Referral ID Status Reason Start Date Expiration Date Visits Requested Visits Authorized [id number] Authorized Specialty Services Required 09/02/2024 09/02/2025 1 1 * Consultation (Routine) - Authorized Specialty Diagnoses / Procedures Referred By Katelyn luna Referred To Contact Neurosurgery Diagnoses Low back pain radiating to left leg Ryan Latif MD [address] [place] [address] Phone: tel: fax: George Shaffer [address] [place] [address] Phone: tel: fax: Referral ID Status Reason Start Date Expiration Date Visits Requested Visits Authorized [id number] Authorized Specialty Services Required 09/02/2024 09/02/2025 1 1 Reason for Visit * Reason Comments Diabetes Continuous left hip pain; might have an anesthesia allergy but isn't quite sure Encounter Details Date Type Department Care Team (Late st Contact Info) Description 09/02/2024 2:15 PM EST Office Visit [facility] [address] [place], [place] [phone] Ryan Latif MD [address] [place] [address] Left hip pain (Primary Dx); Type 2 diabetes mellitus without complication, without long-term current use of insulin (CMS/HCC); Low back pain radiating to left leg; Thrombocytopenia (CMS/HCC); Preventative health care; Overweight (BMI 25.0-29.9); Dietary counseling; Exercise counseling Social History Tobacco Use Types Packs/Day Years [...] AM EDT documented as of this encounter Last Filed Vital Signs Vital Sign Reading [...] Mass Index 29.26 09/02/2024 2:13 PM EST documented in this encounter Progress Notes * Ryan Bhardwaj MD - 09/02/2024 2:15 PM EST SUBJECTIVE Angelina Lilly Rene Roberto is a 74 y.o. female who presents for Diabetes (Continuous left hip pain; might have an anesthesia allergy but isn't quite sure). Diabetes She presents for her follow-up diabetic visit. She has type 2 diabetes mellitus. Pertinent negatives for hypoglycemia include no headaches. Pertinent negatives for diabetes include no chest pain. Review of Systems Constitutional: Negative for fever. HENT: Negative for sore throat. Respiratory: Negative for cough and shortness of breath. Cardiovascular: Negative for chest pain. Gastrointestinal: Negative for abdominal pain. Neurological: Negative for headaches. Allergies Allergen Reactions Lidocaine Other Pt c/o numbness that lasted for 2 days, pt tolerated Mepivacaine Aspirin Other reaction(s): skin irritation,stomach ache , ABDOMEN PAIN OBJECTIVE Vitals: 09/02/24 1413 BP: 128/72 BP Location: Left arm Patient Position: Sitting BP Cuff Size: Adult Pulse: 86 Resp: 20 Temp: 96.2 ??F (35.7 ??C) TempSrc: Temporal SpO2: 96% Weight: 160 lb (72.6 kg) Height: 5' 2 (1.575 m) Physical Exam Vitals reviewed. Constitutional: Appearance: Normal appearance. HENT: Head: Normocephalic and atraumatic. Right Ear: External ear normal. Left Ear: External ear normal. Nose: Nose normal. Mouth/Throat: Mouth: Mucous membranes are moist. Eyes: Conjunctiva/sclera: Conjunctivae normal. Cardiovascular: Rate and Rhythm: Normal rate and regular rhythm. Pulmonary: Effort: Pulmonary effort is normal. Breath sounds: Normal breath sounds. Skin: General: Skin is warm. Neurological: Mental Status: She is alert. Mental status is at baseline. Assessment/Plan Problem List Items Addressed This Visit Type 2 diabetes mellitus without complication (CMS/[facility]) Pt here for a f/u regarding her [...] check your feet on a daily basis. Relevant Orders POCT Glucose (Completed) POCT HGB A1C (Completed) Comprehensive Metabolic Panel Lipid Panel, Standard TSH with Reflex to Free T4 Referral to Podiatry Left hip pain - Primary Pt with persistent c/o left sided low [...] is already scheduled to see Ortho 09/08/2024 Low back pain radiating to left leg Pt here for a follow up, previous [...] normal Patient finished PT. Pt seen at [facility] received steroid injections with no good [...] with posterior element hypertrophic degenerative changes and jnxf-ur-dioncrgo spinal canal stenosis at L4-L5. Plan: referral to neurosurgeon Dr. shaffer 3. Disc bulging at L3-L4 and a small right subarticular disc protrusion at L2-L3 with posterior element hypertrophic degenerative changes and prominent dorsal fat pads without significant canal stenosis. 4. Severe left-sided and sakxkusn-om-fqjjre right-sided neural foraminal stenosis at L5-S1 with impingement on the exiting left L5 nerve root. Oemh-as-sbspaclt bilateral neural foraminal stenosis at L4-L5 and xixs-hy-ulhcfdyk left-sided and minimal right-sided foraminal stenosis at L3-L4. 5. Lower thoracic degenerative changes, as discussed above. Relevant Orders Referral to Neurosurgery Thrombocytopenia (CMS/[facility]) Under the care of Dr Walter, last seen 08/2023 Pt with chronic mild thrombocytopenia. Hematological workup showed low vitamin B12 levels. Normal methylmalonic acid and negative intrinsic factor antibody. She is on oral vitamin B12 supplementation. They recommended: Follow up in 1 year. Preventative health care Mammogram: 05/26/2024 Normal Pap Smear: NL: 02/14/2017 No need to continue given her age Colonoscopy: 11/10/2016 Pathology showed multiple tubular adenomas 5 year f/u recommended. Repeat 11/30/2023 Dr smalls showed a polyp 5 year follow up recommended Dexa scan: 09/29/2016 showed Osteopenia. Overweight (BMI 25.0-29.9) Dietary Recommendations: Fruits, vegetables, whole grains, protein foods, and fat-free or low-fat dairy products are healthychoices. Eat different types of protein foods in your diet. This can include seafood, lean meats, poultry, beans, peas, lentils, nuts, seeds, soy products, and eggs. Limit foods and beverages higher in added sugars, saturated fat, and sodium. Exercise Recommendations: At least 150 minutes of moderate-intensity physical activity per week, or an equivalent combinationof moderate- and vigorous-intensity activity Other Visit Diagnoses Dietary counseling Exercise counseling documented in this encounter Miscellaneous Notes * Assessment & Plan Note - Ryan Bhardwaj MD - 09/02/2024 2:42 PM EST Associated Problem(s): Overweight (BMI 25.0-29.9) Dietary Recommendations: Fruits, vegetables, whole grains, protein foods, and fat-free or low-fat dairy products are healthychoices. Eat different types of protein foods in your diet. This can include seafood, lean meats, poultry, beans, peas, lentils, nuts, seeds, soy products, and eggs. Limit foods and beverages higher in added sugars, saturated fat, and sodium. Exercise Recommendations: At least 150 minutes of moderate-intensity physical activity per week, or an equivalent combinationof moderate- and vigorous-intensity activity * Assessment & Plan Note - Ryan Bhardwaj MD - 09/02/2024 2:31 PM EST Associated Problem(s): Preventative health care Mammogram: 05/26/2024 Normal Pap Smear: NL: 02/14/2017 No need to continue given her age Colonoscopy: 11/10/2016 Pathology showed multiple tubular adenomas 5 year f/u recommended. Repeat 11/30/2023 Dr smalls showed a polyp 5 year follow up recommended Dexa scan: 09/29/2016 showed Osteopenia. * Assessment & Plan Note - Ryan Bhardwaj MD - 09/02/2024 2:29 PM EST Associated Problem(s): Thrombocytopenia (CMS/HCC) Under the care of Dr Walter, last seen 08/2023 Pt with chronic mild thrombocytopenia. Hematological workup showed low vitamin B12 levels. Normal methylmalonic acid and negative intrinsic factor antibody. She is on oral vitamin B12 supplementation. They recommended: Follow up in 1 year. * Assessment & Plan Note - Ryan Bhardwaj MD - 09/02/2024 2:28 PM EST Associated Problem(s): Type 2 diabetes mellitus without complication (CMS/HCC) Pt here for a f/u regarding her [...] check your feet on a daily basis. * Assessment & Plan Note - Ryan Bhardwaj MD - 09/02/2024 2:27 PM EST Associated Problem(s): Low back pain radiating to left leg Pt here for a follow up, previous [...] normal Patient finished PT. Pt seen at [facility] received steroid injections with no good [...] with posterior element hypertrophic degenerative changes and rfzs-kl-ysvqykwr spinal canal stenosis at L4-L5. Plan: referral to neurosurgeon Dr. shaffer 3. Disc bulging at L3-L4 and a small right subarticular disc protrusion at L2-L3 with posterior element hypertrophic degenerative changes and prominent dorsal fat pads without significant canal stenosis. 4. Severe left-sided and oxnbjhry-nj-mwikbu right-sided neural foraminal stenosis at L5-S1 with impingement on the exiting left L5 nerve root. Gfnn-il-xyoiqkhm bilateral neural foraminal stenosis at L4-L5 and rwtx-rt-fhrtjthz left-sided and minimal right-sided foraminal stenosis at L3-L4. 5. Lower thoracic degenerative changes, as discussed above. * Assessment & Plan Note - Ryan Bhardwaj MD - 09/02/2024 2:24 PM EST Associated Problem(s): Left hip pain Pt with persistent c/o left sided low [...] is already scheduled to see Ortho 09/08/2024 documented in this encounter Plan of Treatment Scheduled Referrals Name Type Priority Associated Diagnoses Order Schedule Referral to Neurosurgery Outpatient Referral Routine Low back pain radiating to left leg Expected: 09/02/2024 (Approximate), Expires: 09/02/2025 Referral to Podiatry Outpatient Referral Routine Type 2 diabetes mellitus without complication, without long-term current use of insulin (CMS/HCC) Expected: 09/02/2024 (Approximate), Expires: 09/02/2025 documented as of this encounter Procedures Procedure Name Priority Date/Time Associated Diagnosis Comments TSH W/REFLEX TO FT4 Routine 09/11/2024 1 0:53 AM EST Type 2 diabetes mellitus without complication, without long-term current use of insulin ([facility]) LIPID PANEL, STANDARD Routine 09/11/2024 10:53 AM EST Type 2 diabetes mellitus without complication, without long-term current use of insulin (CMS/[facility]) COMPREHENSIVE METABOLIC PANEL Routine 09/11/2024 10:53 AM EST Type 2 diabetes mellitus without complication, without long-term current use of insulin ([facility]) POCT GLYCATED HEMOGLOBIN, TOTAL Routine 09/02/2024 2:27 PM EST Type 2 diabetes mellitus without complication, without long-term current use of insulin (CMS/[facility]) POCT GLUCOSE Routine 09/02/2024 2:18 PM EST Type 2 diabetes mellitus without complication, without long-term current use of insulin (CMS/[facility]) documented in this encounter Results * TSH with Reflex to Free T4 (09/11/2024 10:53 AM EST) TSH reflex Free T4 1.78 0.32 - 4.0 uIU/mL [facility] Blood Venous blood specimen / Unknown 09/11/2024 10:53 AM EST 09/11/2024 11:33 AM EST us Ryan Bhardwaj MD LAB BLOOD ORDERABLES Final Result [facility] [address] [place] [phone] * Lipid Panel, Standard (09/11/2024 10:53 AM EST) Triglycerides 78 <150 mg/dL [facility] Comment:Desirable Triglyceri de: less than 150 mg/dLBorderline High Triglyceride 150-199 mg/dLHigh Triglyceride: 200-499 mg/dLVery High Triglyceride: greater than or equal to 5OO mg/dL Cholesterol 120 <200 mg/dL [facility] Comment:Desirable Cholestero l: less than 200 mg/dLBorderline High Cholesterol: 200-239 mg/dLHigh Cholesterol: greater than 239 mg/dL LDL Cholesterol Calculated 63 <100 mg/dL [facility] Comment:Desirable LDL: less than 100 mg/dLNear Optimal/Above Optimal LDL: 110- 129 mg/dLBorderline High LDL: 130-159 mg/dLHigh LDL: 160-189 mg/dLVery High LDL: greater than or equal to 190 mg/dL HDL Cholesterol 42 >40 mg/dL [facility] Comment:Desirable HDL: great er than 40 mg/dL Note: This HDL assay may give artificially low results in patients with liver disease. Blood Venous blood specimen / Unknown 09/11/2024 10:53 AM EST 09/11/2024 11:33 AM EST us Ryan Bhardwaj MD LAB BLOOD ORDERABLES Final Result [facility] [address] [place] [phone] * (ABNORMAL) Comprehensive Metabolic Panel (09/11/2024 10:53 AM EST) Sodium 141 135 - 145 mmol/L [facility] Potassium 3.4 3.3 - 5.1 mmol/L [facility] Chloride 105 96 - 108 mmol/L [facility] Carbon Dioxide 29 22 - 29 mmol/L [facility] Anion Gap 10(L) 12 - 20 [facility] Urea Nitrogen (BUN) 10 9 - 16 mg/dL [facility] Creatinine, Serum 0.60 0.5 - 1.4 mg/dL [facility] Estimated Glomerular Filt Rate >60 [facility] Comment:Chronic Kidney Disea se: Estimated GFR < 60 mL/min/[id number] Kidney Disease: Estimated GFR < 15 mL/min/1.73m2 Glucose 87 60 - 115 mg/dL [facility] Calcium 10.1 8.4 - 10.2 mg/dL [facility] Bilirubin, Total 0.6 0.0 - 1.0 mg/dL [facility] Aspartate Amino Transferase 32(H) 5 - 31 U/L [facility] Alanine Aminotransferase 38(H) 0 - 31 U/L [facility] Total Protein 7.9 6.5 - 8.0 g/dL [facility] Albumin Level 4.3 3.5 - 5.0 g/dL [facility] Alkaline Phosphatase 107 39 - 117 U/L [facility] Blood Venous blood specimen / Unknown 09/11/2024 10:53 AM EST 09/11/2024 11:33 AM EST Ryan Bhardwaj MD LAB BLOOD ORDERABLES Final Result Performing Organization Address City/State/[facility] Co de Phone Number [facility] [address] [place] [phone] * (ABNORMAL) POCT HGB A1C (09/02/2024 2:27 PM EST) Hemoglobin A1C 6.6(A) 4.0 - 6.0 % QC Media Lot # [id number] Lot# Expiration Date Blood 09/02/2024 2:27 PM EST Ryan Bhardwaj MD POINT OF CARE TEST EN TER/EDIT ORDERABLES Final Result * POCT Glucose (09/02/2024 2:18 PM EST) Glucose Blood, POC 180 60 - 200 mg/dL [employer] Lot # [id number] Lot# Expiration Date [id number] Blood Capillary blood specimen / Unknown 09/02/2024 2:18 PM EST us Ryan Bhardwaj MD POINT OF CARE TEST EN TER/EDIT ORDERABLES Final Result documented in this encounter Visit Diagnoses Diagnosis Left hip pain- Primary Pain in joint, pelvic region and thigh Type 2 diabetes mellitus without complication, without long-term current use of insulin (CMS/HCC) Low back pain radiating to left leg Lumbago Thrombocytopenia (CMS/HCC) Unspecified thrombocytopenia Preventative health care Routine general medical examination at a health care facility Overweight (BMI 25.0-29.9) Overweight Dietary counseling Dietary surveillance and counseling Exercise counseling documented in this encounter Additional Health Concerns Assessment Noted Time PHQ-9 Depression Total Score: 7 01/10/20 24 2:26 PM EDT documented as of this encounter Care Teams Marble Machine Tender Relationship Specialty Start Date End Date Ryan Latif MD [address] [place] [phone] PCP - General Internal Medicine 05/20/14 documented as of this encounter
--- OUTSIDE RECORDS SUMMARY | 2024-09-15 14:38 | XMS_ITS | Patient Health Record ---
Author Organization [facility] Address [address] [place] [address] Care Team Providers Care Eating Disorder Specialist Name Role Phone Yoshi Bhardwaj MD, Ryan Primary Care Provide Tolu Arnold [phone] ALLERGIES Allergen (clinical drug ingredient) Drug/Non Drug Allergy documented on EMR Reaction Allergy Type Onset Date Status aspirin Aspirin upset stomach Drug Allergy Act troy RESULTS Component Value Reference Range Notes Pathology (Not yet reviewed by provider) Interpretation: Performing Lab:[facility], [address] [place] [phone] Notes/Report: Glucose, Whole Blood Reviewed date:12/01/2023 12:54:34 AM Interpretation: Performing Lab:[facility], [address] [place] [phone] Notes/Report: Glucose, Whole Blood 129 60-115 mg/dL METER # : [id number] REASON FOR REFERRAL No Information MEDICATIONS Medication SIG (Take, Route, Frequency, Duration) Notes Start Date End Date Status Dulcolax (colon prep) 5 MG take at 3:00 p.m and 7:00p.m. Orally two tablets twice a day for one day for 1 day 08/28/2023 Active MiraLax (colon prep) 17 GM/SCOOP mixed with Gatorade or Crystal Light Orally begin at 5:00 p.m. the day before the procedure for 1 day 08/28/2023 Active MiraLax (colon prep) 17 GM/SCOOP 1 238 Gm bottle mixed with Gatorade or Crystal Light Orally begin at 5:00 p.m. the day before the procedure for 1 day 11/19/2023 Active Meclizine HCl 12.5 MG TAKE 1 TABLET BY M OUTH TWICE DAILY NEEDED FOR DIZZINESS Oral for 14 R42,Unavailabl e Active Dulcolax (colon prep) 5 MG take at 3:00 p.m and 7:00p.m. Orally two tablets twice a day for one day for 1 day 11/19/2023 Active Atorvastatin Calcium 40 MG TAKE 1 TABLET BY MOUTH DAILY AT BEDTIME Oral for 90 Active Trulicity 0.75 MG/0.5ML INJECT ONE PEN (=0.75MG) SUBCUTANEOUSLY ONCE A WEEK DIRECTED Subcutaneous for 28 E119,Unavailab le Active glipiZIDE ER 10 MG Oral for 90 Active Clopidogrel Bisulfate 75 MG Oral for 90 Active SOCIAL HISTORY Tobacco Use: Social History Observation Description Date Details (start date - stop date) Never Smoker NA - NA Sex Assigned At : Social History Observation Description Sex Assigned At Unknown Tobacco Use/Smoking Question Answer Notes Patient is a nonsmoker Alcohol Screen Question Answer Notes Did you have a drink containing alcohol in the p ast year? No Points 0 Interpretation Negative PROBLEMS Problem Type ICD Code Onset Dates Problem Status W/U Status Risk SNOMED Code Notes Problem History of adenomatous polyp of colon (Z86.010) Active confirmed 748240681 Problem Colon cancer screening (Z12.11) Active confirmed 648297606 Problem Anticoagulant long-term use (Z79.01) Active confirmed 418636824 Problem Family history of colon cancer (Z80.0) Active confirmed 752415169 Problem Preprocedural examination (Z01.818) Active confirmed 440911372503282 Problem Diverticulosis of large intestine without perforation or abscess without bleeding (K57.30) Active confirmed Diverticul ar disease of colon (818052127) Encounters Encounter Location Date Provider Diagnosis [facility] [address] [place] [phone] 11/30/2023 Tolu Chan Encounter for screen ing colonoscopy Z12.11 ; Colon polyps K63.5 ; Family history of colon cancer Z80.0 ; Diverticulosis of large intestine without perforation or abscess without bleeding K57.30 and Other hemorrhoids K64.8 [facility] [address] [place] [address] 11/19/2023 Tolu Chan ASSESSMENTS Encounter Date Diagnosis Assessment Notes Treatment Notes Treatment Clinical Notes 11/30/2023 Encounter for screening colonoscopy (ICD-10 - Z12.11) 11/30/2023 Colon polyps (ICD-10 - K63.5) 11/30/2023 Family history of colon cancer (ICD-10 - Z80.0) 11/30/2023 Diverticulosis of large intestine without perforation or abscess without bleeding (ICD-10 - K57.30) 11/30/2023 Other hemorrhoids (ICD-10 - K64.8) PLAN OF TREATMENT Pending Test Test Name Order Date Pathology 11/30/2023 Future Test Test Name Order Date COLONOSCOPY 08/28/2023 Insurance Providers Payer Name Payer Address Payer Phone Subscriber Number Group Number Insured Name Patient Relationship to Insured Coverage Start Date Coverage End Date [facility] [address] Attn Claims RIAN [place] [id number] [employer] Self - patient is the insured MEDICAL (GENERAL) HISTORY Medical History History ICD Code NIDDM 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
--- OUTSIDE RECORDS SUMMARY | 2024-09-15 14:38 | XMS_ITS | Encounter Summary ---
Author Organization [employer] [facility] [employer] Address [address] [place] [address] [address] [place] [address] Care Team Providers Care Nanny Caregiver Name Role Phone Ryan Latif MD Primary Care Provide r Encounter Details Date Type Department Care Team (Latest Contact Info) Description 04/24/2019 Abstract [facility] CONVERSIONS Dental, Provider, DDS Social History Tobacco Use Types Packs/Day Years [...] on filedocumented in this encounter Care Teams Nanny Caregiver Relationship Specialty Start Date End Date Ryan Latif MD [address] [place] [phone] PCP - General Internal Medicine 05/20/14 documented as of this encounter
--- OUTSIDE RECORDS SUMMARY | 2024-09-15 14:38 | XMS_ITS | Encounter Summary ---
Author Organization [employer] Address [address] [place] [address] [address] [place] [address] Care Team Providers Care Order Caller Name Role Phone Ryan Latif MD Primary Care Provide r Encounter Details Date Type Department Care Team (Latest Contact Info) Description 06/21/2021 Abstract [facility] CONVERSIONS Dental, Provider, DDS Social History [...] on filedocumented in this encounter Care Teams Order Caller Relationship Specialty Start Date End Date Ryan Latif MD [address] [place] [address] PCP - General Internal Medicine 05/20/14 documented as of this encounter
--- OUTSIDE RECORDS SUMMARY | 2024-09-15 14:38 | XMS_ITS | Encounter Summary ---
Author Organization [employer] Address [address] [facility] 7t [place] [address] Care Team Providers Care Manager Lvn Name Role Phone Ryan Latif MD Primary Care Provide r Reason for Visit * Reason Comments Med Refill Encounter Details Date Type Department Care Team ([facility] Contact Info) Description 06/19/2023 Refill [facility] MEDICINE [address] [place], [place] [phone] Ryan Latif MD [address] [place], [place] [phone] Chronic GERD Social History Tobacco Use Types Packs/Day Years Used Date Smoking Tobacco: Never Passive Smoke Exposure: Never Smokeless Tobacco: Never Alcohol Use Standard Drinks/Week Comments Defer 0 (1 standard drink = 0.6 oz pur e alcohol) Depression Answer Date Recorded Patient Health Questionnaire-9 Score 7 12/19/2022 Housing Stability Answer Date Recorded What is your housing situation today? I have albinojay campbell 06/06/[address] you li ve. Do you have problems with any of the following? None of the above 06/06/2023 Food Insecurity Answer Date Recorded Within the past 12 months, y ou worried that your food would run out before you got money to buy more: Never True 06/06/2023 Within the past 12 months,th e food you bought just didn't last and you didn't have enough money to get more: Never True Transportation Answer Date Recorded In the past 12 months, has l ack of transportation kept you from medical appts, meetings, work or from getting things needed for daily living? No 06/06/2023 Utilities Answer Date Recorded In the past 12 months, has t he electric, gas, oil or water company threatened to shut off services in your home? No 06/06/2023 Depression Answer Date Recorded Patient Health Questionnaire-2 Score 1 12/19/2022 Comments Unknown Sex and Gender Information Value Date Recorded Sex Assigned at Female 06/19/2022 10:18 AM EDT Legal Sex Female 10:18 AM EDT Gender Identity Female 06/19/2022 10:18 AM EDT Sexual Orientation Straight 06/19/2022 10 :18 AM EDT documented as of this encounter Plan of Treatment Not on file documented as of this encounter Visit Diagnoses Diagnosis Chronic GERD documented in this encounter Additional Health Concerns Assessment Noted Time PHQ-9 Depression Total Score: 7 12/20/19 23 2:03 PM EDT documented as of this encounter Care Teams Manager Lvn Relationship Specialty Start Date End Date Ryan Latif MD [address] [place] [address] PCP - General Internal Medicine 05/20/14 documented as of this encounter
--- OUTSIDE RECORDS SUMMARY | 2024-09-15 14:38 | XMS_ITS ---
Author Organization [facility] Address [address] [place] [address] Care Team Providers Care Pool Cleaner Name Role Phone Yoshi Bhardwaj MD, Ryan Primary Care Provide Tolu Arnold [phone] REASON FOR VISIT PREP MEDICATIONS Medication SIG (Take, Route, Frequency, Duration) Notes Start Date End Date Status MiraLax (colon prep) 17 GM/SCOOP 1 238 Gm bottle mixed with Gatorade or Crystal Light Orally begin at 5:00 p.m. the day before the procedure for 1 day 11/19/2023 Active Dulcolax (colon prep) 5 MG take at 3:00 p.m and 7:00p.m. Orally two tablets twice a day for one day for 1 day 11/19/2023 Active Encounters Encounter Location Date Provider Diagnosis [facility] [address] [place] [phone] 11/19/2023 Tolu Cahn PLAN OF TREATMENT Medication Medication Name Sig Start Date Stop Date Notes MiraLax (colon prep) 17 GM/SCOOP 1 238 Gm bottle mixed with Gatorade or Crystal Light Orally begin at 5:00 p.m. the day before the procedure for 1 day 11/19/2023 Dulcolax (colon prep) 5 MG take at 3:00 p.m and 7:00p.m. Orally two tablets twice a day for one day for 1 day 11/19/2023
--- OUTSIDE RECORDS SUMMARY | 2024-09-15 14:38 | XMS_ITS | Encounter Summary ---
Author Organization [employer] Address [address] [facility] 7t [place] [address] Care Team Providers Care Code Enforcement Supervisor Name Role Phone Ryan Latif MD Primary Care Provide r Reason for Visit * Reason Onset Date Comments Durable Medical Equipment 09/02/2024 Encounter Details Date Type Department Care Team ([facility] st Contact Info) Description 09/02/2024 Telephone [facility] MEDICINE [address] [place], [place] [phone] Sarah Hogan MA Durable Medical Equipment Social History Tobacco Use Types Packs/Day Years [...] encounter Miscellaneous Notes * Telephone Encounter - Sarah Hogan MA - 09/02/2024 2:54 PM EST DME Supplier: [employer] Status : supplier working on order. [employer] order number: [id number] documented in this encounter Plan of Treatment Not on file documented as of this encounter Visit Diagnoses Not on filedocumented in this encounter Additional Health Concerns Assessment Noted Time PHQ-9 Depression Total Score: 7 01/10/20 24 2:26 PM EDT documented as of this encounter Care Teams Code Enforcement Supervisor Relationship Specialty Start Date End Date Ryan Latif MD [address] [place] [address] PCP - General Internal Medicine 05/20/14 documented as of this encounter
--- OUTSIDE RECORDS SUMMARY | 2024-09-15 14:38 | XMS_ITS | Encounter Summary ---
Author Organization [employer] Address [address] [facility] 7t [place] [address] Care Team Providers Care Abrasives Sales Representative Name Role Phone Ryan Latif MD Primary Care Provide r Encounter Details Date Type Department Care Team (Latest Contact Info) Description 09/02/2024 Travel Social History Tobacco Use Types Packs/Day Years [...] documented as of this encounter Care Teams Abrasives Sales Representative Relationship Specialty Start Date End Date Ryan Latif MD 230 [place] [address] PCP - General Internal Medicine 05/20/14 documented as of this encounter
--- OUTSIDE RECORDS SUMMARY | 2024-09-15 14:38 | XMS_ITS ---
Author Organization [facility] Address [address] [place] [address] Care Team Providers Care Drawing Press Operator Name Role Phone Yoshi Bhardwaj MD, Ryan Primary Care Provide Tolu Arnold [phone] REASON FOR VISIT bowel prep MEDICATIONS Medication SIG (Take, Route, Frequency, Duration) [...] the procedure for 1 day 08/28/2023 Active Encounters Encounter Location Date Provider Diagnosis [facility] [address] [place] [phone] 08/28/2023 Tolu Chan PLAN OF TREATMENT Medication Medication Name Sig Start Date Stop Date Notes Dulcolax (colon prep) 5 MG take at 3:00 p.m and 7:00p.m. Orally two tablets twice a day for one day for 1 day 08/28/2023 MiraLax (colon prep) 17 GM/SCOOP mixed with Gatorade or Crystal Light Orally begin at 5:00 p.m. the day before the procedure for 1 day 08/28/2023
--- OUTSIDE RECORDS SUMMARY | 2024-09-15 14:39 | XMS_ITS | Encounter Summary ---
Author Organization [employer] Address [address] [place] [address] 7t [place] [address] Care Team Providers Care Letter Sorting Machine Operator Name Role Phone Ryan Latif MD Primary Care Provide r Reason for Visit * Reason Comments Med Refill Encounter Details Date Type Department Care Team ([facility] Contact Info) Description 05/17/2023 Refill [facility] MEDICINE 230 [place], [place] [phone] Ryan Latif MD [address] [place], [place] [phone] Chronic GERD Social History Tobacco Use Types Packs/Day Years Used Date Smoking Tobacco: Never Passive Smoke Exposure: Never Smokeless Tobacco: Never Alcohol Use Standard Drinks/Week Comments Defer 0 (1 standard drink = 0.6 oz pur e alcohol) Depression Answer Date Recorded Patient Health Questionnaire-9 Score 7 12/19/2022 Depression Answer Date Recorded Patient Health Questionnaire-2 [...] documented as of this encounter Care Teams Letter Sorting Machine Operator Relationship Specialty Start Date End Date Ryan Latif MD [address] [place] [address] PCP - General Internal Medicine 05/20/14 documented as of this encounter
--- OUTSIDE RECORDS SUMMARY | 2024-09-15 14:39 | XMS_ITS | Encounter Summary ---
Author Organization [employer] Address [address] [facility] 7t [place] [address] Care Team Providers Care Associate Web Developer Name Role Phone Ryan Latif MD Primary Care Provide r Reason for Visit * Reason Comments Med Refill Encounter Details Date Type Department Care Team ([facility] Contact Info) Description 06/11/2023 Refill [facility] MEDICINE [address] [place], [place] [phone] Ryan Latif MD [address] [place], [place] [phone] Chronic GERD Social History Tobacco Use Types [...] documented as of this encounter Care Teams Associate Web Developer Relationship Specialty Start Date End Date Ryan Latif MD [address] [place] [address] PCP - General Internal Medicine 05/20/14 documented as of this encounter
--- OUTSIDE RECORDS SUMMARY | 2024-09-15 14:39 | XMS_ITS ---
Author Organization [facility] Address [address] [place] [address] Care Team Providers Care Watershed Engineer Name Role Phone Yoshi Bhardwaj MD, Ryan Primary Care Provide r Tolu Mcclendon Unavailable [phone] REASON FOR VISIT screening, hx polyps,fam hx colon ca PROBLEMS Problem Type ICD Code Onset Dates Problem Status W/U Status Risk SNOMED Code Notes Problem Diverticulosis of large intestine without perforation or abscess without bleeding (K57.30) Active confirmed Diverticul ar disease of colon (377089631) Encounters Encounter Location Date Provider Diagnosis [facility] [address] [place], [place] [phone] 11/30/2023 Tolu Chan Encounter for scre ening colonoscopy Z12.11 ; Colon polyps K63.5 ; Family history of colon cancer Z80.0 ; Diverticulosis of large intestine without perforation or abscess without bleeding K57.30 and Other hemorrhoids K64.8 ASSESSMENTS Encounter Date Diagnosis Assessment Notes Treatment Notes Treatment Clinical Notes 11/30/2023 Encounter for screening colonoscopy (ICD-10 - Z12.11) 11/30/2023 Colon polyps (ICD-10 - K63.5) 11/30/2023 Family history of colon cancer (ICD-10 - Z80.0) 11/30/2023 Diverticulosis of large intestine without perforation or abscess without bleeding (ICD-10 - K57.30) 11/30/2023 Other hemorrhoids (ICD-10 - K64.8) PLAN OF TREATMENT No Information
--- OUTSIDE RECORDS SUMMARY | 2024-09-15 14:39 | XMS_ITS | Encounter Summary ---
Author Organization [employer] Address [address] [facility] 7t [place] [address] Care Team Providers Care Ice Cream Machine Operator Name Role Phone Ryan Latif MD Primary Care Provide r Encounter Details Date Type Department Care Team ([facility] st Contact Info) Description 11/21/[address] [facility] & PEDS [address] [place] [address] Kamryn Cruz LPN Social History Tobacco Use Types Packs/Day Years Used Date Smoking Tobacco: Never Assessed Comments Unknown Sex and Gender Information Value Date Recorded Sex Assigned at Female 06/19/2022 10:18 AM EDT Legal Sex Female 10:18 AM EDT Gender Identity Female 06/19/2022 10:18 AM EDT Sexual Orientation Straight 06/19/2022 10 :18 AM EDT COVID-19 Exposure Response Date Recorded In the last 10 days, have yo u been in contact with someone who was confirmed or suspected to have Coronavirus/COVID-19? No / Unsure 11/01/2022 4:19 PM EDT documented as of this encounter Plan of Treatment Not on file documented as of this encounter Procedures Procedure Name Priority Date/Time Associated Diagnosis Comments XR HIP 2 OR 3 VIEWS LEFT Routine 12/19/2022 3:17 PM EDT XR LUMBAR SPINE COMPLETE 4+ VIEWS Routine 12/19/2022 3:17 PM EDT documented in this encounter Results * XR Hip 2 or 3 Views Left (12/19/2022 3:17 PM EDT) Anatomical Region Laterality Modality Lower Extremities, Hip Left Radiograp hic Imaging 12/19/2022 3:17 PM EDT Narrative 12/19/2022 4:15 PM EDT ?[facility] ?[address] ?[place] [address] ?XRay Report ? Signed ? Patient: Benton,Angelina M ?MR#: [id number] ?? 9 ? : 1950 ?Acct:[id number] ? Age/Sex: 72 / F ?ADM Date: 12/19/22 ? Loc: HO.HHCX ? Attending Dr: Ryan Randolph MD ? Ordering Physician: Ryan Randolph MD ?? Date of Service: 12/19/22 ?? Procedure(s): XR hip LT min 2V ?? Accession Number(s): [id number] ? cc: Ryan Randolph MD ? EXAMINATION: ?? XR HIP, LEFT ? CLINICAL INFORMATION: ?? Hip pain ? COMPARISON: ?? CT scan the abdomen and pelvis November 2017 ? TECHNIQUE: ?? Two views of the left hip. ? FINDINGS: ?? Bones and soft tissues are normal. No fracture. Alignment is anatomic. ?? Hip joint space is maintained. ? XR/XR hip LT min 2V ?? IMPRESSION: ?? Normal left hip. ? Dictated By: ?Rohan Rodas MD ? Signed By: ?<Electronically signed by Rohan Rodas MD in OV> ?12/19/22 1612 ? DD/ ? TD/TT: ? Email Production Consultant: WG ? Procedure Note Sonali Hill - 02/14/2023 [facility] [address] [place] [address] XRay Report Signed Patient: Angelina Bhardwaj MMR#: [id number] 9 : 1950Acct:[id number] Age/Sex: 72 / FADM Date: 12/19/22 Loc: HO.HHCX Attending Dr: Ryan Randolph MD Ordering Physician: Ryan Randolph MD Date of Service: 12/19/22 Procedure(s): XR hip LT min 2V Accession Number(s): [id number] cc: Ryan Randolph MD EXAMINATION: XR HIP, LEFT CLINICAL INFORMATION: Hip pain COMPARISON: CT scan the abdomen and pelvis November 2017 TECHNIQUE: Two views of the left hip. FINDINGS: Bones and soft tissues are normal. No fracture. Alignment is anatomic. Hip joint space is maintained. XR/XR hip LT min 2V IMPRESSION: Normal left hip. Dictated By: Rohan Rodas MD Signed By: <Electronically signed by Rohan Rodas MD inOV> 12/19/22 1612 DD/ 1517 TD/TT: Email Production Consultant: TAMY [facility] External Provider IMG XR PROCEDURES Edited Result - Final * XR Lumbar Spine Complete 4+ Views (12/19/2022 3:17 PM EDT) Anatomical Region Laterality Modality Spine, L-spine Radiographic Latrice ging 12/19/2022 3:17 PM EDT Narrative 12/19/2022 4:18 PM EDT ?[facility] ?[address] ?[place] [address] ?XRay Report ? Signed ? Patient: Angelina Bhardwaj ?MR#: [id number] ?? 9 ? : 1950 ?Acct:[id number] ? Age/Sex: 72 / F ?ADM Date: 12/19/22 ? Loc: HO.HHCX ? Attending Dr: Ryan Randolph MD ? Ordering Physician: Ryan Randolph MD ?? Date of Service: 12/19/22 ?? Procedure(s): XR lumbar spine 4V min ?? Accession Number(s): [id number] ? cc: Ryan Randolph MD ? EXAMINATION: ?? XR LUMBOSACRAL SPINE WITH OBLIQUES ? CLINICAL INFORMATION: ?? Low back pain ? COMPARISON: ?? X-rays lumbar sacral spine April 2010. CT abdomen and pelvis November ?? 2017. ? Vascular calcification noted within the aorta and branch vessels. ? Surrounding bone and soft tissues otherwise unremarkable. ? TECHNIQUE: ?? AP, both oblique, and lateral views of the lumbar spine. Lateral view ?? of the lumbosacral junction. ? FINDINGS: ?? Vertebral bodies are normally aligned with normal height. Persistent ?? degenerative disc changes most prominent at the L5-S1 level with a ?? vacuum disc phenomena and disc space narrowing with endplate ?? osteophytes. ?? Mild degenerative disc changes at L4-L5 with endplate osteophytes. ?? Bilateral facet arthrosis at the L5-S1 level better appreciated on ?? prior CT. ? Arterial calcification noted in the abdomen. ? Surrounding bone and soft tissues unremarkable. ? XR/XR lumbar spine 4V min ?? IMPRESSION: ?? 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 prominent at the L5-S1 level. No significant change compared with the ?? lumbar sacral spine dating back to 2009. ? No acute abnormality ? Dictated By: ?Rohan Rodas MD ? Signed By: ?<Electronically signed by Rohan Rodas MD in OV> ?12/19/22 1616 ? DD/ 1517 ? TD/TT: ? Email Production Consultant: WG ? Procedure Note Donsandra, Image - 01/09/2023 [place] [address] XRay Report Signed Patient: Angelina Bhardwaj MMR#: [id number] 9 : 1950Acct:[id number] Age/Sex: 72 / FADM Date: 12/19/22 Loc: HO.HHCX Attending Dr: Ryan Randolph MD Ordering Physician: Ryan Randolph MD Date of Service: 12/19/22 Procedure(s): XR lumbar spine 4V min Accession Number(s): [id number] cc: Ryan Randolph MD EXAMINATION: XR LUMBOSACRAL SPINE WITH OBLIQUES CLINICAL INFORMATION: Low back pain COMPARISON: X-rays lumbar sacral spine April 2010. CT abdomen and pelvis November 2017. Vascular calcification noted within the aorta and branch vessels. Surrounding bone and soft tissues otherwise unremarkable. TECHNIQUE: AP, both oblique, and lateral views of the lumbar spine. Lateral view of the lumbosacral junction. FINDINGS: Vertebral bodies are normally aligned with normal height. Persistent degenerative disc changes most prominent at the L5-S1 level with a vacuum disc phenomena and disc space narrowing with endplate osteophytes. Mild degenerative disc changes at L4-L5 with endplate osteophytes. Bilateral facet arthrosis at the L5-S1 level better appreciated on prior CT. Arterial calcification noted in the abdomen. Surrounding bone and soft tissues unremarkable. 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 No significant change compared with the lumbar sacral spine dating back to 2009. No acute abnormality Dictated By: Rohan Rodas MD Signed By: <Electronically signed by Rohan Rodas MD inOV> 12/19/22 1616 DD/ 1517 TD/TT: Email Production Consultant: TAMY [facility] External Provider IMG XR PROCEDURES Edited Result - Final documented in this encounter Visit Diagnoses Not on filedocumented in this encounter Care Teams Ice Cream Machine Operator Relationship Specialty Start Date End Date Ryan Latif MD [address] [place] [address] PCP - General Internal Medicine 05/20/14 documented as of this encounter
--- OUTSIDE RECORDS SUMMARY | 2024-09-15 14:39 | XMS_ITS | Encounter Summary ---
Author Organization [employer] Address [address] [facility] 7t [place] [address] Care Team Providers Care Gwot Ia/Ilo Intelligence Support Name Role Phone Ryan Latif MD Primary Care Provide r Reason for Visit * Reason Comments Med Refill Encounter Details Date Type Department Care Team ([facility] st Contact Info) Description 05/29/2023 Refill [facility] MEDICINE [address] [place], [place] [phone] Ryna Latif MD [address] [place], [place] [phone] Chronic GERD Social History Tobacco Use Types Packs/Day Years Used Date Smoking Tobacco: Never Passive Smoke Exposure: Never Smokeless Tobacco: Never Alcohol Use Standard Drinks/Week Comments Defer 0 (1 standard drink = 0.6 oz pur e alcohol) Depression Answer Date Recorded Patient Health Questionnaire-9 Score 7 12/19/2022 Housing Stability Answer Date Recorded What is your housing situation today? I have albinojay campbell 05/27/[address] you li ve. Do you have problems with any of the following? None of the above 05/27/2023 Food Insecurity Answer Date Recorded Within the past 12 months, y ou worried that your food would run out before you got money to buy more: Never True 05/27/2023 Within the past 12 months,th e food you bought just didn't last and you didn't have enough money to get more: Never True 03/2023 Transportation Answer Date Recorded In the past 12 months, has l ack of transportation kept you from medical appts, meetings, work or from getting things needed for daily living? No 05/27/2023 Utilities Answer Date Recorded In the past 12 months, has t he electric, gas, oil or water company threatened to shut off services in your home? No 05/27/2023 Depression Answer Date Recorded Patient Health Questionnaire-2 [...] documented as of this encounter Care Teams Gwot Ia/Ilo Intelligence Support Relationship Specialty Start Date End Date Ryna Latif MD [address] [place] [address] PCP - General Internal Medicine 05/20/14 documented as of this encounter
--- OUTSIDE RECORDS SUMMARY | 2024-09-15 14:39 | XMS_ITS | Encounter Summary ---
Author Organization [employer] Address [address] [facility] 7t [place] [address] Care Team Providers Care Supervisor Dimension Warehouse Name Role Phone Ryan Latif MD Primary Care Provide r Reason for Visit * Reason Comments Med Refill Encounter Details Date Type Department Care Team ([facility] Contact Info) Description 06/06/2023 Refill [facility] MEDICINE [address] [place], [place] [phone] Ryan Latif MD [address] [place], [place] [phone] Chronic GERD Social History Tobacco Use Types [...] documented as of this encounter Care Teams Supervisor Dimension Warehouse Relationship Specialty Start Date End Date Ryan Latif MD [address] [place] [address] PCP - General Internal Medicine 05/20/14 documented as of this encounter
--- OUTSIDE RECORDS SUMMARY | 2024-09-15 14:39 | XMS_ITS | Encounter Summary ---
Author Organization [employer] Address [address] [facility] 7t [place] [address] Care Team Providers Care Electronic Sales And Service Technician Name Role Phone Ryan Latif MD Primary Care Provide r Encounter Details Date Type Department Care Team ([facility] st Contact Info) Description 09/09/2024 Telephone [facility] MEDICINE [address] [place], [place] [phone] yRan Latif MD [address] [place], [place] [phone] Social History Tobacco Use Types Packs/Day Years [...] documented as of this encounter Care Teams Electronic Sales And Service Technician Relationship Specialty Start Date End Date Ryan Latif MD [address] [place] [phone] PCP - General Internal Medicine 05/20/14 documented as of this encounter
--- OUTSIDE RECORDS SUMMARY | 2024-09-15 14:39 | XMS_ITS | Encounter Summary ---
Author Organization [employer] Address [address] [facility] 7t [place] [address] Care Team Providers Care Signals Analyst Name Role Phone Ryan Latif MD Primary Care Provide r Encounter Details Date Type Department Care Team ([facility] st Contact Info) Description 01/04/2023 Orders Only [facility]EDS [address] [place], [place] [phone] Kamryn Cruz LPN Social History Tobacco Use Types Packs/Day Years Used Date Smoking Tobacco: Never Assessed Depression Answer Date Recorded Patient Health Questionnaire-9 [...] suspected to have Coronavirus/COVID-19? No / Unsure 12/19/2022 1:45 PM EDT documented as of this encounter Plan of Treatment Not on file documented as of this encounter Visit Diagnoses Not on filedocumented in this encounter Additional Health Concerns Assessment Noted Time PHQ-9 Depression Total Score: 7 12/20/19 23 2:03 PM EDT documented as of this encounter Care Teams Signals Analyst Relationship Specialty Start Date End Date Ryan Latif MD [address] [place] [address] PCP - General Internal Medicine 05/20/14 documented as of this encounter
== END 2024-09-15 11:40 | disposition home or self-care (01) ==
PROVIDERS: PCP Internal Medicine; Referring Provider Internal Medicine; Visit Provider Physician Assistant
DX: M25.552 Pain in left hip (principal)
CPT/HCPCS: 99214

== ENCOUNTER → 2024-09-15 10:03 | Outpatient (BNVA) | payer OTHER, SELFPAY | PROVIDERS: PCP Internal Medicine; Referring Provider Internal Medicine; Visit Provider Physician Assistant | DX: M25.552 Pain in left hip (principal) | CPT/HCPCS: 99212 ==

== ENCOUNTER 2024-12-26 08:22 | Outpatient (REF) | payer OTHER, SELFPAY ==
--- OUTSIDE RECORDS SUMMARY | 2024-12-26 08:31 | XMS_ITS | Clinical Summary ---
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 at bedtime Active blood sugar diagnostic (FreeStyle Lite Strips) test strip USE DIRECTED TO TEST BLOOD SUGAR TWICE DAILY 5 Active clopidogreL (PLAVIX) 75 mg tablet Take 1 tablet (75 mg total) by mouth 1 (one) time each day. Active dulaglutide (TRULICITY) 1.5 mg/0.5 mL pen injector injection Inject 0.5 mL (1.5 mg total) under the skin. 4 Active Trulicity 0.75 mg/0.5 mL pen injector injection INJECT ONE PEN (=0.75MG) SUBCUTANEOUSLY ONCE A WEEK DIRECTED 4 Active famotidine (PEPCID) 20 mg tablet Take 1 tablet (20 mg total) by mouth 2 times daily. 4 Active glipiZIDE (GLUCOTROL XL) 10 mg 24 hr tablet Take 1 tablet (10 mg total) by mouth every 12 (twelve) hours. 5 Active hydroCHLOROthi azide (HYDRODIURIL) 25 mg tablet Take 1 tablet (25 mg total) by mouth 1 (one) time each day. Active TRUEplus Lancets 33 gauge misc USE DIRECTED TO TEST BLOOD SUGAR TWICE DAILY 5 Active meclizine (ANTIVERT) 12.5 mg tablet TAKE 1 TABLET BY MOUTH TWICE DAILY NEEDED FOR DIZZINESS 3 Active Encounters Date Type Department Care Team Description 12/01/2024 2:45 PM EDT Consult Orthopedic Surgery [facility] [address] [phone] Jabari Nunez DPM Controlled type 2 diabetes with neuropathy ([facility] V24, [facility] V28) (Primary Dx); Arthritis of both feet; Hammertoes of both feet; Dermatophytosis, nail from Last 3 Months Social History Tobacco Use Types Packs/Day Years Used Date Smoking Tobacco: Never Assessed Comments Unknown Sex and Gender Information Value Date Recorded Sex Assigned at Not on file Legal Sex Female 5:31 AM EST Gender Identity Not on file Sexual Orientation Not on file Last Filed Vital Signs Vital Sign Reading Time Taken Comments Blood Pressure - - Pulse - - Temperature - - Respiratory Rate - - Oxygen Saturation - - Inhaled Oxygen Concentration - - Weight 72.6 kg (160 lb) 12/01/2024 2:55 PM EDT Height 157.5 cm (5' 2 ) 12/01/2024 2:55 PM EDT Body Mass Index 29.26 12/01/2024 2:55 PM EDT Plan of Treatment Upcoming Encounters Date Type Department Care Team (Late st Contact Info) Description 02/02/2025 2:45 PM EDT Office Visit Orthopedic Surgery [facility] [address] [phone] Jabari Nunez DPM [address] [address] Health Maintenance Due Date Last Done Comments Breast Cancer Screening 1950 Diabetes: Annual Foot Exam 1960 Diabetes: Annual Retina Eye Exam 1960 RSV Immunization Adult Patients (1 - Risk 60-74 years 1-dose series) 2010 Pneumococcal Vaccine: 50+ Years (2 of 2 - PPSV23) 01/18/2017 11/23/2016 Colorectal Cancer Screening: Colonoscopy 09/25/2024 Diabetes: Annual Urine Albumin-Creatinine Ratio (uACR) 09/25/2024 12/29/2022 Falls Risk Assessment 09/25/2024 Hepatitis C Screening 09/25/2024 Medicare Annual Wellness Visit 09/25/2024 Osteoporosis Screening (Bone Density Screening) 09/25/2024 Social Influencers of Health Screening 09/25/2024 COVID-19 Vaccine ( season) 2024 06/05/2024, 10/25/2023, 05/30/2022, Additional history exists Depression Screening 01/09/2025 01/10/2024 Diabetes: Blood Sugar Control Test (HGBA1C) 03/02/2025 09/02/2024 Diabetes: Annual GFR (Glomerular Filtration Rate) 09/11/2025 09/11/2024 Hypertension/CHF/CAD Annual BMP Blood Test 09/11/2025 09/11/2024 Cholesterol Screening (Lipid Panel) 09/11/2029 09/11/2024 DTaP,Tdap,and Td Vaccines (3 - Td or Tdap) 04/20/2032 04/20/2022, 09/16/2010 Zoster Vaccines Completed 11/01/2022, 08/20, 12/17/2014 Influenza Vaccine Completed 06/05/2024, , 05/17/2021, Additional [...] on patient's age to complete this topic MMR Vaccines Aged Out No longer eligi ble based on patient's age to complete this topic Meningococcal ACWY Vaccine Aged Out N o longer eligible based on patient's age to complete this topic Meningococcal B Vaccine Aged Out No l onger eligible based on patient's age to complete this topic RSV Immunization Patients Under 20 months Aged Out No longer eligible based on patient's age to complete this topic Varicella Vaccines Aged Out No longer eligible based on patient's age to complete this topic Insurance [facility] MEDIC[facility] Member Subscriber Plan / Payer (Ef fective 2015-Present) Name:Angelina Prescott Relation to Subscriber:Self Name:Angelina Prescott Payer ID:[id number] Group ID:[id number] Type:Not on file Address: [place] [address] [address] [id number] Care Teams Crusher Loader Equipment Operator Relationship Specialty Start Date End Date Ryan Randolph MD [address] [place] [id number] PCP - General Internal Medicine 09/25/24
--- OUTSIDE RECORDS SUMMARY | 2024-12-26 08:31 | XMS_ITS | Patient Health Record ---
Author Organization [facility] Address [address] [place] [phone] Care Team Providers Care Commercial Property Administrator Name Role Phone Yoshi Bhardwaj MD, Ryan Primary Care Provide Tolu Arnold Unavailable [phone] Allergies Allergen (clinical drug ingredient) Drug/Non Drug Allergy documented on EMR Reaction Allergy Type Onset Date Status aspirin Aspirin upset stomach Drug Allergy Act troy Reason For Referral No Information Medications Medication SIG (Take, Route, Frequency, Duration) Notes [...] Bisulfate 75 MG Oral for 90 Active Social History Tobacco Use: Social History Observation Description Date Details (start date - stop date) Never Smoker NA - NA Tobacco Use/Smoking Question Answer Notes Patient is a nonsmoker Alcohol Screen Question Answer Notes Did you have a drink containing alcohol in the p ast year? No Points 0 Interpretation Negative Problems Problem Type SNOMED Code ICD Code Onset Dates Problem Status W/U Status Risk Notes Problem 845070582 Colon cancer screening (Z12.11) Active confirmed Problem 103820227 History of adenomatous polyp of colon (Z86.010) Active confirmed Problem Diverticular disease of colon (230648810) Diverticulosis of large intestine without perforation or abscess without bleeding (K57.30) Active confirmed Problem 805824950747165 Preprocedural examination (Z01.818) Active confirmed Problem 845893031 Family history o f colon cancer (Z80.0) Active confirmed Problem 971576501 Anticoagulant long-term use (Z79.01) Active confirmed Plan Of Treatment Pending Test Test Name Order Date Pathology 11/30/2023 Future Test Test Name Order Date COLONOSCOPY 08/28/2023 Insurance Providers Payer Name Payer Address Payer Phone Subscriber Number Group Number Insured Name Patient Relationship to Insured Coverage Start Date Coverage End Date [facility] [address] Attn Claims [place] [id number] HERB WATTS Self - patient is the insured Medical (General) History Medical History History ICD Code NIDDM 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
--- OUTSIDE RECORDS SUMMARY | 2024-12-26 08:31 | XMS_ITS | Clinical Summary ---
Author Organization [employer] Address [address] [facility] [address] [place] [address] Care Team Providers Care Lap Grinder Name Role Phone Ryan Latif MD Primary Care Provide r Allergies Active Allergy Reactions Criticality Noted Date Comments Aspirin 03/07/2012 Other reaction(s): skin irritation,stomach ache , ABDOMEN PAIN Lidocaine Other Medium 06/05/2024 Pt c/o numbness that lasted for 2 days, pt tolerated Mepivacaine Medications Continuous Blood Gluc Distance Learning Unit Leader (FreeStyle Nerissa 2 [place]) deviceIndication s:Type 2 diabetes mellitus without complication, without long-term current use of insulin (CMS/HCC) 1 applicator with breakfast, with lunch, and with evening meal. 1 each 02/07/20 Active Continuous Blood Gluc Sensor (FreeStyle Nerissa 2 Sensor) miscIndications: Type 2 diabetes mellitus without complication, without long-term current use of insulin (CMS/HCC) 1 applicator before breakfast, before lunch, and before evening meal. 2 each 02/07/20 Active meclizine (Antivert) 12.5 MG tabletIndication s:Dizziness and giddiness TAKE 1 TABLET BY MOUTH TWICE DAILY NEEDED FOR DIZZINESS 28 tablet 07/19/20 23 Active atorvastatin (Lipitor) 40 MG tablet TAKE 1 TABLET BY MOUTH DAILY AT BEDTIME 90 tablet 3 02/12/20 24 Active glucose blood (FREESTYLE LITE) test strip Use bid. Dx diabetes 60 each 03/11/20 24 Active FreeStyle lancets 1 each by Other route 2 times daily. Use bid, dx type 2 diabetes 60 each 03/11/20 24 Active Dulaglutide 1.5 MG/0.5ML solution auto-injectorInd ications:Type 2 diabetes mellitus without complication, without long-term current use of insulin ([facility]) Inject 1.5 mg under the skin 1 (one) time per week. 0.5 mL 6 06/05/20 24 Active hydroCHLOROthiaz olegario (HYDRODiuril) 25 MG tabletIndication s:Primary hypertension TAKE 1 TABLET BY MOUTH EVERY DAY 90 tablet 3 09/30/19 25 Active clopidogrel (Plavix) 75 MG tabletIndication s:Type 2 diabetes mellitus without complication, unspecified whether detention insulin use ([facility]) TAKE 1 TABLET BY MOUTH EVERY DAY 90 tablet 3 10/28/19 25 Active glipiZIDE XL (Glucotrol XL) 10 MG 24 hr tabletIndication s:Type 2 diabetes mellitus without complication, unspecified whether continuous churn buttermaker insulin use ([facility]) TAKE 1 TABLET BY MOUTH EVERY TWELVE HOURS 180 tablet 1 10/28/19 25 Active famotidine (Pepcid) 20 MG tabletIndication s:Chronic GERD TAKE 1 TABLET BY MOUTH TWICE DAILY 60 tablet 6 12/23/19 25 Active acetaminophen (Tylenol 8 Hour) 650 MG ER tabletIndication s:Trochanteric bursitis of left hip,Low back pain radiating to left leg Take 1 tablet (650 mg) by mouth every 8 (eight) hours if needed for mild pain. Do not crush, chew, or split. 30 tablet 3 12/24/19 25 Active famotidine (Pepcid) 20 MG tabletIndication s:Chronic GERD TAKE 1 TABLET BY MOUTH TWICE DAILY 60 tablet 6 05/08/20 24 025 Discontinued Active Problems Problem Noted Date Diagnosed Date [...] vigorous-intensity activity Thrombocytopenia 06/05/2024 Assessment & Plan (12/23/2024 3:10 PM EDT): Under the care of Dr Walter, last seen 10/13/2024 Pt with chronic mild thrombocytopenia. Hematological workup showed low vitamin B12 levels. Normal methylmalonic acid and negative intrinsic factor antibody. She is on oral vitamin B12 supplementation. They recommended: Follow up in 1 year. Assessment & Plan (09/02/2024 2:29 PM EST): [...] diabetes mellitus without complication Assessment & Plan (12/23/2024 3:12 PM EDT): Pt here for a f/u regarding her Diabetes controlled She is on a regimen of Glipizide ER 10 mg po daily and Trulicity 1.5 once a week Intolerant to Metformin due to Nausea and Vomiting Hgb A1c on 12/23/2024: 6.5 Eye exam 01/2022 Microalbumin 12/29/2022 0.6 Pt not on an FELY inhibitor/ARB Foot check today is risk of: 1 on the right foot and zero on the left Pt already on Plavix 75 mg po daily Plan:continue current regimen f/u 4 months, Pt advised to: adhere to diabetic diet check your blood sugars regularly check your feet on a daily basis. Assessment & Plan (09/02/2024 2:40 PM EST): [...] incontinence of urine 12/19/2022 Assessment & Plan (12/23/2024 3:11 PM EDT): Under the care of Urology, s/p cystoscopy with botox injection [facility]2024 Assessment & Plan (06/05/2024 1:54 PM EDT): Under the care of Urology, s/p cystoscopy with botox injection [facility] 03/24/2024 Assessment & Plan (10/11/2023 3:11 PM EST): Under the care of Urology, s/p cystoscopy with botox injection [facility] 09/19/2023 Assessment & Plan (06/26/2023 2:49 PM [...] numbness and weakness Pt 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 Preventative health care 12/19/2022 Assessment & Plan (09/02/2024 2:31 PM EST): Mammogram: 05/26/2024 Normal Pap Smear: NL: 02/14/2017 No need to continue given her age Colonoscopy: 11/10/2016 Pathology showed multiple tubular adenomas 5 year f/u recommended. Repeat 11/30/2023 Dr smlals showed a polyp 5 year follow up [...] tells me she was never contacted by [facility]. Today my MA has contacted them to [...] tells me she was never contacted by [facility]. Today my MA has contacted them to help facilitate this process for patient Vaccines: tdap: 09/16/2010 Zoster: 12/17/2014 Dexa scan: 09/29/2016 showed Osteopenia. Assessment & Plan (12/19/2022 2:03 PM EDT): Mammogram: 2022 Normal Pap Smear: NL: 02/14/2017 No need to continue given her age Colonoscopy: 11/10/2016 Pathology showed multiple tubular adenomas 5 year f/u recommended. She was referred to [facility] Vaccines: tdap: 09/16/2010 Zoster: 12/17/2014 Dexa scan: 09/29/2016 showed Osteopenia. Low back pain radiating to left leg 12/19/2022 Assessment & Plan (12/23/2024 3:09 PM EDT): Pt here for a follow [...] normal Patient finished PT. Pt seen at [facility] received steroid injections with no good [...] with posterior element hypertrophic degenerative changes and bpkw-rk-lpskoagn spinal canal stenosis at L4-L5. Plan: referral to neurosurgeon Dr. shaffer 3. Disc bulging at L3-L4 and a small right subarticular disc protrusion at L2-L3 with posterior element hypertrophic degenerative changes and prominent dorsal fat pads without significant canal stenosis. 4. Severe left-sided and xwaokimq-rl-pxunfs right-sided neural foraminal stenosis at L5-S1 with impingement on the exiting left L5 nerve root. Krxe-dm-fiwtuqgl bilateral neural foraminal stenosis at L4-L5 and scjs-ey-twcdogha left-sided and minimal right-sided foraminal stenosis at L3-L4. 5. Lower thoracic degenerative changes, as discussed above. Pt was seen by [facility] 09/15/2024 who recommended to follow th recommendations of Ortho and do PT Assessment & Plan (09/02/2024 2:39 PM EST): [...] normal Patient finished PT. Pt seen at [facility] received steroid injections with no good [...] with posterior element hypertrophic degenerative changes and pvfb-zx-wbyxrwrz spinal canal stenosis at L4-L5. Plan: referral to neurosurgeon Dr. shaffer 3. Disc bulging at L3-L4 and a small right subarticular disc protrusion at L2-L3 with posterior element hypertrophic degenerative changes and prominent dorsal fat pads without significant canal stenosis. 4. Severe left-sided and pvcvhibn-gv-egbcdw right-sided neural foraminal stenosis at L5-S1 with impingement on the exiting left L5 nerve root. Psbq-op-ufrdsuqm bilateral neural foraminal stenosis at L4-L5 and vddp-zw-ikjguazd left-sided and minimal right-sided foraminal stenosis at [...] normal Patient finished PT. Pt seen at [facility] received steroid injections with no good [...] finished PT. Pt will be referred to [facility] Assessment & Plan (02/06/2023 2:44 PM EDT): [...] Hip PT eval Follow up after evaluation Trochanteric bursitis of left hip 12/19/2022 Assessment & Plan (12/23/2024 3:18 PM EDT): Pt with persistent c/o left [...] disc disease and facet arthropathy at L5-S1. Seen by Ortho 09/08/2024 had a steroid injection, recommended PT but were not referred. Will refer today Assessment & Plan (09/02/2024 2:24 PM EST): [...] not reveal any proximal vascular lesion. Left PAPER WRAPPING MACHINE OPERATOR anomaly was noted. Of note She was [...] EGD 09/30/2018 showed multiple polyps according to reading interventionist of benign appearance. She completed her treatment [...] not reveal any proximal vascular lesion. Left PAPER WRAPPING MACHINE OPERATOR anomaly was noted. Of note She was [...] EGD 09/30/2018 showed multiple polyps according to reading interventionist of benign appearance. She completed her treatment [...] procedure. I asked my MA to contact [facility] on her behalf. Their response was that they would book her for October of next year. Pt does not want to wait that long Pt had erpeat colonoscopy with Dr Dr. Smalls 11/2023 Assessment & Plan (10/11/2023 3:11 PM EST): She had a colonoscopy 10/2016 showed Tubular adenomas Pt was referred to [facility] last year. Scheduled for January 2023 according to patient, but today tells me she was given the prep but was never contacted to schedule the procedure. I asked my MA to contact [facility] on her behalf. Their response was that they would book her for October of next year. Pt does not want to wait that long Pt scheduled for colonoscopy with Dr Dr. Smalls 11/2023 Assessment & Plan (04/03/2023 3:07 PM EDT): She had a colonoscopy 10/2016 showed Tubular adenomas Pt was referred to [facility] last year. Scheduled for January 2023 according to patient, but today tells me she was given the prep but was never contacted to schedule the procedure. I asked my MA to contact [facility] on her behalf. Their response was that they would book her for October of next year. Pt does not want to wait that long Plan: Will refer to Dr. Smalls, pt agreeable Assessment & Plan (12/19/2022 2:27 PM EDT): She had a colonoscopy 10/2016 showed Tubular adenomas Pt was referred to [facility] last year. Scheduled for January 2023 [...] Encounters Date Type Department Care Team Description 12/25/2024 Telephone [facility] [address] [place] [address] Ryan Latif MD Durable Medical Equipment 12/23/2024 3:00 PM EDT Office Visit [facility] [address] [place] [address] Ryan Latif MD Trochanteric bursitis of left hip (Primary Dx); Type 2 diabetes mellitus without complication, without long-term current use of insulin ([facility]); Low back pain radiating to left leg; Thrombocytopenia (CMS/[facility]); Urge incontinence of urine 12/23/2024 Telephone [facility] [address] [place] [address] Ryan Latif MD Durable Medical Equipment 12/23/2024 Travel 12/20/2024 Refill [facility] [address] [place] [address] Ryan Latif MD Chronic GERD 12/19/2024 Telephone [facility] [address] [place] [address] Ryan Latif MD chartprep 10/29/2024 Telephone [facility] [address] [place] [address] Ryan Latif MD Durable Medical Equipment (Diabetic shoes) 10/26/2024 Refill [facility] [address] [place] [address] Ryan Latif MD Type 2 diabetes mellitus without complication, unspecified whether detention insulin use (CMS/[facility]) 09/29/2024 Refill [facility] [address] [place] [address] Ryan Latif MD Primary hypertension from Last 3 Months Immunizations Name Administration [...] Answer Date Recorded Patient Health Questionnaire-9 Score 12 12/23/2024 Patient Health Questionnaire-9 Score 12 12/23/2024 Last PHQ-9: Questionnaire Data Not on file 0 12/23/2024 Housing Stability Answer Date Recorded What is [...] Answer Date Recorded Patient Health Questionnaire-2 Score 3 12/23/2024 Internet Access Answer Date Recorded Internet Access [...] Sign Reading Time Taken Comments Blood Pressure 123/70 12/23/2024 2:54 PM EDT Pulse 78 12/23/2024 2:54 PM EDT Temperature 36.1 ??C (96.9 ??F) 12/23/2024 2:54 PM ED T Respiratory Rate 18 12/23/2024 2:54 PM EDT Oxygen Saturation 99% 12/23/2024 2:54 PM EDT Inhaled Oxygen Concentration - - Weight 73 kg (161 lb) 12/23/2024 2:54 PM EDT Height 157.5 cm (5' 2 ) 12/23/2024 2:54 PM EDT Body Mass Index 29.45 12/23/2024 2:54 PM EDT Plan of Treatment Upcoming Encounters Date Type Department Care Team (Late st Contact Info) Description 03/26/2025 3:00 PM EDT Office Visit [facility] [address] [place] [address] Ryan Latif MD [address] [place] [address] Health Maintenance Due Date Last Done Comments CT Colonography 1950 FIT DNA/Cologuard 1950 FIT 1950 FOBT 1950 Sigmoidoscopy 1950 Diabetes: Foot Exam 1960 Eye Exam 1960 Hepatitis C Screening 1968 Pneumococcal Vaccine: 50+ Years (2 of 2 - PPSV23) 01/18/2017 11/23/2016 Dental Prophylaxis 12/20/2021 06/21/2021, 0 10/27/2019, 04/24/2019, Additional history exists Dental Oral Exam 10/26/2023 04/26/2023, 09/2020, 07/31/2019, Additional history exists Diabetes: Urine Protein Screening 12/30/2023 12/29/2022, 04/01/2021 Dental X-Ray: Bitewings 04/27/2024 04/26/20 23, 06/21/2021, 07/31/2019, Additional history exists RSV Patients and Patients Aged 60 years or older (1 - 1-dose 75+ series) 2025 Mammogram 05/26/2025 05/26/2024, 04/21, 2022, Additional history exists Alcohol/Substance Use Screening 06/05/2025 06/05/2024 Diabetes: Hemoglobin A1C 06/25/2025 025, 09/02/2024, 06/05/2024, Additional history exists Lipid Panel 09/11/2025 09/11/2024, 10/18, 12/29/2022, Additional history exists Depression Screening 12/23/2025 12/23/2024, 12/24/19 25 SDOH Screening 12/23/2025 12/23/2024 Tobacco Screening 12/23/2025 12/23/2024 Dental X-Ray: Full Mouth 04/27/2026 023, 06/21/2021, [...] Procedure Name Priority Date/Time Associated Diagnosis Comments POCT GLYCATED HEMOGLOBIN, TOTAL Routine 12/23/2024 2:57 PM EDT Type 2 diabetes mellitus without complication, without long-term current use of insulin (CMS/HCC) POCT GLUCOSE Routine 12/23/2024 2:55 PM EDT Type 2 diabetes mellitus without complication, without long-term current use of insulin (CMS/HCC) AMB REFERRAL TO ORTHOPAEDIC SURGERY Routine 12/01/2024 Left hip pain LIPID PANEL, STANDARD Routine 09/11/2024 10:53 AM EST Type 2 diabetes mellitus without complication, without long-term current use of insulin (CMS/HCC) BI MAMMOGRAM SCREENING TOMOSYNTHESIS BILATERAL Routine 05/26/2024 3:30 PM EDT HM COLONOSCOPY Routine 11/30/2023 INTRAORAL - COMPLETE SERIES OF RADIOGRAPHIC IMAGES Routine 04/26/2023 1:30 [...] Recently Relevant to Health Maintenance Results * (ABNORMAL) POCT HGB A1C (12/23/2024 2:57 PM EDT) Hemoglobin A1C 6.5(A) 4.0 - 6.0 % QC Media Lot # [id number] Lot# Expiration Date Blood 12/23/2024 2:57 PM EDT us Ryan Bhardwaj MD POINT OF CARE TEST EN TER/EDIT ORDERABLES Final Result * POCT Glucose (12/23/2024 2:55 PM EDT) Glucose Blood, POC 123 60 - 200 mg/dL QC Media Lot # [id number] Lot# Expiration Date Blood Capillary blood specimen / Unknown 12/23/2024 2:55 PM EDT us Ryan Bhardwaj MD POINT OF CARE TEST EN TER/EDIT ORDERABLES Final Result * Referral to Orthopaedic Surgery (12/01/2024) us Ryan Bhardwaj MD OUTPATIENT REFERRAL O RDERABLES Final Result * Lipid Panel, Standard (09/11/2024 10:53 AM EST) Triglycerides 78 <150 mg/dL [facility] Comment:Desirable Triglyceri de: less than 150 mg/dLBorderline High Triglyceride 150-199 mg/dLHigh Triglyceride: 200-499 mg/dLVery High Triglyceride: greater than or equal to 5OO mg/dL Cholesterol 120 <200 mg/dL [facility] Comment:Desirable Cholestero l: less than 200 mg/dLBorderline High Cholesterol: 200-239 mg/dLHigh Cholesterol: greater than 239 mg/dL LDL Cholesterol Calculated 63 <100 mg/dL [facility] Comment:Desirable LDL: less than 100 mg/dLNear Optimal/Above Optimal LDL: 110- 129 mg/dLBorderline High LDL: 130-159 mg/dLHigh LDL: 160-189 mg/dLVery High LDL: greater than or equal to 190 mg/dL HDL Cholesterol 42 >40 mg/dL [facility] Comment:Desirable HDL: great er than 40 mg/dL Note: This HDL assay may give artificially low results in patients with liver disease. Blood Venous blood specimen / Unknown 09/11/2024 10:53 AM EST 09/11/2024 11:33 AM EST us Ryan Bhardwaj MD LAB BLOOD ORDERABLES Final Result [facility] [address] [place] [address] [phone] * BI Mammogram Screening Tomosynthesis Bilateral (05/26/2024 3:30 PM EDT) Anatomical Region Laterality Modality Breast Bilateral Mammography 05/26/2024 3:30 PM EDT Narrative 06/06/2024 4:48 PM EDT ? [facility] ? [address] ?[place] [address] ? Mammography Report ? Signed ? Patient: Angelina Ma M ?MR#: ?? [id number] ? : 1950 ?Acct:[id number] ? Age/Sex: 74 / F ?ADM Date: 05/26/24 ? Loc: HO.MAMMO ? Attending Dr: Ryan Randolph MD ? Ordering Physician: Ryan Randolph MD ?Resu ?? lts: 2Benign Findings ? Date of Service: 10/07/24 ?Follow Up: 1 Year From Orig ?? inal Mammogram ? Procedure(s): MM tomosynthesis screening BI ?? Accession Number(s): [id number] ? cc: Ryan Randolph MD ? EXAMINATION: [...] ??Valeria Rogers DO ??06/06/2024 04:45 PM EDT ?? RP ? Dictated By: ?Valeria Rogers DO ? Signed By: ?<Electronically signed by Valeria Rogers, DO in OV> ? 06/06/24 1645 ? DD/ 1530 ? TD/TT: 05/26/24 1543 ? Hot Stick Man: ? Procedure Note Sergio, Image - 06/06/2024 [facility] [address] [place] [address] Mammography Report Signed Patient: Angelina Ma MMR#: [id number] : 1950Acct:[id number] Age/Sex: 74 / FADM Date: 05/26/24 Loc: HO.MAMMO Attending Dr: Ryan Randolph MD Ordering Physician: Ryan Randolph MDResu lts: 2Benign Findings Date of Service: 05/26/24Follow Up: 1 Year From Orig inal Mammogram Procedure(s): MM tomosynthesis screening BI Accession Number(s): [id number] cc: Ryan Randolph MD EXAMINATION: MM SCREENING [...] Valeria Rogers DO 06/06/2024 04:45 PM EDT Dictated By: Valeria Rogers DO Signed By: <Electronically signed by Valeria Rogers DO in OV> 06/06/24 1645 DD/ 1530 TD/TT: 05/26/24 1543 Hot Stick Man: us Ryan Bhardwaj MD IMG BI PROCEDURES Fin al Result * Hm Colonoscopy (11/30/2023) Colonoscopy Normal Normal Historical Provider HEALTH MAINTENANCE Final Result * Albumin, Random Urine W/O Creatinine (12/29/2022 9:16 AM EDT) Pathologist [facility] Albumin, Urine 0.6 See Note: mg/dL [facility] [place] [employer] Comment: Reference Range: Reference Range Not established SRIKANTH [email or web address] [place] [employer] Comment: The ADA defines abnormalities in albumin [...] AM EDT 12/29/2022 9:18 AM EDT Narrative [facility] - 12/29/2022 9:12 PM EDT FASTING:YES FASTING: YES Ryan Bhardwaj MD LAB URINE ORDERABLES Final Result [facility] [address], [place] [address] [facility] [place] [facility] [address] [place] [address] from Last 3 Months or Most Recently Relevant to Health Maintenance Insurance [employer] OPTIONS (HMO D-SNP) D[facility]AL - [facility] Care Teams Lap Grinder Relationship Specialty Start Date End Date Ryan Latif MD [address] [place] [id number] PCP - General Internal Medicine 05/20/14
--- OUTSIDE RECORDS SUMMARY | 2024-12-26 08:31 | XMS_ITS ---
Author Organization [facility] Address [address] [place] [address] Care Team Providers Care Finance Assistant Name Role Phone Yoshi Bhardwaj MD, Ryan Primary Care Provide Tolu Arnold [phone] REASON FOR VISIT PREP Medications Medication SIG (Take, Route, Frequency, Duration) [...] Active Encounters Encounter Location Date Provider Diagnosis [facility] [address] [place] [phone] 11/19/2023 Tolu Chan Plan Of Treatment Medication Medication Name Sig Start Date Stop Date Notes MiraLax (colon prep) 17 GM/SCOOP 1 238 Gm bottle mixed with Gatorade or Crystal Light Orally begin at 5:00 p.m. the day before the procedure for 1 day 11/19/2023 Dulcolax (colon prep) 5 MG take at 3:00 p.m and 7:00p.m. Orally two tablets twice a day for one day for 1 day 11/19/2023 Progress Notes * SHARON WATTSOB: (73 yo F)Acc No.[id number]:11/19/2023 Patient:?LEVAR WATTS :1950???Age:73 Y???Sex:Female Address:[address] [place] [address] [place], [address] * Refills? Start MiraLax (colon prep) Powder, 17 GM/SCOOP, Orally, 1, 1 238 Gm bottle mixed with Gatorade or Crystal Light, begin at 5:00 p.m. the day before the procedure, 1 day, Refills=0 Start Dulcolax (colon prep) Tablet Delayed Release, 5 MG, Orally, 4, take at 3:00 p.m and 7:00p.m., two tablets twice a day for one day, 1 day, Refills=0 * true * Date:? Generated for Vinnie calhoun/Emiliano/Jaguaritting on:?12/26/2024 08:31 AM EDT
--- OUTSIDE RECORDS SUMMARY | 2024-12-26 08:32 | XMS_ITS ---
Author Organization [facility] Address [address] [place] [address] Care Team Providers Care Friction Paint Machine Tender Name Role Phone Yoshi Bhardwaj MD, Ryan Primary Care Provide r Tolu Mcclendon Unavailable [phone] REASON FOR VISIT screening, hx polyps,fam hx colon ca Problems Problem Type SNOMED Code ICD Code Onset Dates Problem Status W/U Status Risk Notes Problem Diverticular disease of colon (159090566) Diverticulosis of large intestine without perforation or abscess without bleeding (K57.30) Active confirmed Encounters Encounter Location Date Provider Diagnosis [facility] [address] [place] [phone] 11/30/2023 Tolu Chan Encounter for scre ening [...] No Information Progress Notes * SHARON WATTSOB: (74 yo F)Acc No.[id number]:11/30/2023 COLON WITH MAC Patient:?LEVAR WATTS Provider:?Tolu Chan MD :1950???Age:73 Y???Sex:Female D ate:11/30/2023 Address:[address] [place] [address] [place], [phone] Pcp:Ryan lugo MD Subjective: * Chief Complaints: * ???1. Screening, hx polyps,f am hx colon ca. * Medical History:? Objective: * Vitals:? Assessment: * Assessment: 1.?Encounter for screening c olonoscopy - Z12.11 (Primary)???2.?Colon polyps - K63.5???3.?Family history of colon cancer - Z80.0???4.?Diverticulosis of large intestine without perforation or abscess without bleeding - K57.30???5.?Other hemorrhoids - K64.8??? Plan: * Treatment: * Procedure Codes:?31255 LESIO N REMOVAL COLONOSCOPY, Modifiers: 33 * * The named appointment provid er may or may not be the originator of this progress note, and it is not deemed complete until electronically signed by the appointment provider. Sign off status: Pending * Provider:?Tolu Chan MD Date:? 024 Generated for Vinnie calhoun/Emiliano/eTransmitting on:?12/26/2024 08:32 AM EDT
--- OUTSIDE RECORDS SUMMARY | 2024-12-26 08:32 | XMS_ITS ---
Author Organization [facility] Address [address] [place] [address] Care Team Providers Care Burner Shaft Name Role Phone Yoshi Bhardwaj MD, Ryan Primary Care Provide Tolu Arnold [phone] REASON FOR VISIT bowel prep Medications Medication SIG (Take, Route, Frequency, Duration) [...] Active Encounters Encounter Location Date Provider Diagnosis [facility] [address] [place] [phone] 08/28/2023 Tolu Chan Plan Of Treatment Medication Medication Name Sig Start Date Stop Date Notes Dulcolax (colon prep) 5 MG take at 3:00 p.m and 7:00p.m. Orally two tablets twice a day for one day for 1 day 08/28/2023 MiraLax (colon prep) 17 GM/SCOOP mixed with Gatorade or Crystal Light Orally begin at 5:00 p.m. the day before the procedure for 1 day 08/28/2023 Progress Notes * SHARON WATTSOB: (73 yo F)Acc No.[id number]:08/28/2023 Patient:?LEVAR WATTS :1950???Age:73 Y???Sex:Female Address:[address] [place] [address] [address], [place], [address] * Refills? Start MiraLax (colon prep) Powder, 17 GM/SCOOP, Orally, 1, mixed with Gatorade or Crystal Light, begin [...]
--- OUTSIDE RECORDS SUMMARY | 2024-12-26 08:32 | XMS_ITS | Encounter Summary ---
Author Organization [employer] Address [address] [place] [address] 7t [place] [address] Care Team Providers Care Manager Bilingual Name Role Phone Ryan Latif MD Primary Care Provide r Encounter Details Date Type Department Care Team (Late st Contact Info) Description 08/25/2022 Orders Only [facility] MED & PEDS [address] [place] [address] Kamryn Cruz LPN Social History Tobacco Use Types Packs/Day Years Used Date Smoking Tobacco: Never Assessed Comments Unknown Sex and Gender Information Value Date Recorded Sex Assigned at Female 06/19/2022 10:18 AM EDT Legal Sex Female 10:18 AM EDT Gender Identity Female 06/19/2022 10:18 AM EDT Sexual Orientation Straight 06/19/2022 10 :18 AM EDT documented as of this encounter Plan of Treatment Upcoming Encounters Date Type Department Care Team (Late st Contact Info) Description 03/26/2025 3:00 PM EDT Office Visit [facility] MEDICINE [address] [place] [address] Ryan Latif MD [address] [place] [address] documented as of this encounter Visit Diagnoses Not on filedocumented in this encounter Care Teams Manager Bilingual Relationship Specialty Start Date End Date Ryan Latif MD [address] [place] [id number] PCP - General Internal Medicine 05/20/14 documented as of this encounter
--- OUTSIDE RECORDS SUMMARY | 2024-12-26 08:32 | XMS_ITS | Encounter Summary ---
Author Organization [employer] Address [address] [place] [address] 7t [place] [address] Care Team Providers Care Air Force Senior Officer Name Role Phone Ryan aLtif MD Primary Care Provide r Encounter Details Date Type Department Care Team (Latest Contact Info) Description 06/21/2021 Abstract [facility] CONVERSIONS Dental, Provider, DDS Social History [...] Upcoming Encounters Date Type Department Care Team ( st Contact Info) Description 03/26/2025 3:00 PM EDT Office Visit [facility] MEDICINE [address] [place] [address] Ryan Latif MD [address] [place] [address] documented as of this encounter Visit Diagnoses Not on filedocumented in this encounter Care Teams [employer] Senior Officer Relationship Specialty Start Date End Date Ryan Latif MD [address] [place] [address] [phone] PCP - General Internal Medicine 05/20/14 documented as of this encounter
--- OUTSIDE RECORDS SUMMARY | 2024-12-26 08:32 | XMS_ITS | Encounter Summary ---
Author Organization [employer] Address [address] [place] [address] 7t [place] [address] Care Team Providers Care Autocad Name Role Phone Ryan Latif MD Primary Care Provide r Encounter Details Date Type Department Care Team (Late st Contact Info) Description 09/14/2022 Orders Only [facility] CHC MED & PEDS [address] [place] [address] Kamryn Cruz LPN Social History Tobacco Use [...] Description 03/26/2025 3:00 PM EDT Office Visit [facility] MEDICINE [address] [place] [address] Ryan Latif MD [address] [place] [address] documented as of this encounter Visit Diagnoses Not on filedocumented in this encounter Care Teams Autocad Relationship Specialty Start Date End Date Ryan Latif MD [address] [place] [phone] PCP - General Internal Medicine 05/20/14 documented as of this encounter
--- OUTSIDE RECORDS SUMMARY | 2024-12-26 08:32 | XMS_ITS | Encounter Summary ---
Author Organization [employer] Address [address] [place] [address] 7t [place] [address] Care Team Providers Care Medical Sales Consultant Name Role Phone Ryan Latif MD Primary Care Provide r Encounter Details Date Type Department Care Team (Latest Contact Info) Description 04/24/2019 Abstract [facility] CONVERSIONS Dental, Provider, DDS Social History [...] Description 03/26/2025 3:00 PM EDT Office Visit [facility] MEDICINE [address] [place], [place] [phone] Ryan Latif MD [address] [place] [address] documented as of this encounter Visit Diagnoses Not on filedocumented in this encounter Care Teams Medical Sales Consultant Relationship Specialty Start Date End Date Ryan Latif MD [address] [place] [address] [phone] PCP - General Internal Medicine 05/20/14 documented as of this encounter
--- OUTSIDE RECORDS SUMMARY | 2024-12-26 08:32 | XMS_ITS | Encounter Summary ---
Author Organization [employer] Address [address] [facility] 7t [place] [address] Care Team Providers Care Building Drafter Name Role Phone Ryan Latif MD Primary Care Provide r Reason for Visit * Reason Comments Med Refill Encounter Details Date Type Department Care Team ([facility] Contact Info) Description 12/20/2024 Refill [facility] MEDICINE [address] [place], [place] [phone] Ryan Latif MD [address] [place], [place] [phone] Chronic GERD Social History Tobacco Use Types [...] Description 03/26/2025 3:00 PM EDT Office Visit [facility] MEDICINE [address] [place] [address] Ryan Latif MD [address] [place] [address] documented as of this encounter Visit Diagnoses Diagnosis Chronic GERD documented in this encounter Additional Health Concerns Assessment Noted Time PHQ-9 Depression Total Score: 7 01/10/20 24 2:26 PM EDT documented as of this encounter Care Teams Building Drafter Relationship Specialty Start Date End Date Ryan Latif MD [address] [place] [phone] PCP - General Internal Medicine 05/20/14 documented as of this encounter
--- OUTSIDE RECORDS SUMMARY | 2024-12-26 08:32 | XMS_ITS | Encounter Summary ---
Author Organization [employer] Address [address] [facility] 7t [place] [address] Care Team Providers Care Packaging Sales Name Role Phone Ryan Latfi MD Primary Care Provide r Reason for Visit * Reason Comments Med Refill Encounter Details Date Type Department Care Team ([facility] Contact Info) Description 06/19/2023 Refill [facility] MEDICINE [address] [place], [place] [phone] Ryan Latif MD [address] [place], [place] [phone] Chronic GERD Social History Tobacco Use Types Packs/Day Years Used Date Smoking Tobacco: Never Passive Smoke Exposure: Never Smokeless Tobacco: Never Alcohol Use Standard Drinks/Week Comments Defer 0 (1 standard drink = 0.6 oz pur e alcohol) Depression Answer Date Recorded Patient Health Questionnaire-9 Score 7 12/19/2022 Housing Stability Answer Date Recorded What is your housing situation today? I have albino shannan 06/06/[address] you li [...] Description 03/26/2025 3:00 PM EDT Office Visit [facility] MEDICINE [address] [place] [address] Ryan Latif MD [address] [place] [address] documented as of this encounter Visit Diagnoses Diagnosis Chronic GERD documented in this encounter Additional Health Concerns Assessment Noted Time PHQ-9 Depression Total Score: 7 12/20/19 23 2:03 PM EDT documented as of this encounter Care Teams Packaging Sales Relationship Specialty Start Date End Date Ryan Latif MD [address] [place] [phone] PCP - General Internal Medicine 05/20/14 documented as of this encounter
--- OUTSIDE RECORDS SUMMARY | 2024-12-26 08:33 | XMS_ITS | Encounter Summary ---
Author Organization [employer] Address [address] [facility] 7t [place] [address] Care Team Providers Care Telemarketing Manager Name Role Phone Ryan Latif MD Primary Care Provide r Reason for Visit * Reason Comments Med Refill Encounter Details Date Type Department Care Team ([facility] Contact Info) Description 06/06/2023 Refill [facility] MEDICINE [address] [place], [place] [phone] Ryan Latif MD 230 [place], [place] [phone] Chronic GERD Social History Tobacco Use Types [...] Description 03/26/2025 3:00 PM EDT Office Visit [facility] MEDICINE [address] [place] [address] Ryan Latif MD [address] [place] [phone] documented as of this encounter Visit Diagnoses Diagnosis Chronic GERD documented in this encounter Additional Health Concerns Assessment Noted Time PHQ-9 Depression Total Score: 7 12/20/19 23 2:03 PM EDT documented as of this encounter Care Teams Telemarketing Manager Relationship Specialty Start Date End Date Ryan Latif MD [address] [place] [phone] PCP - General Internal Medicine 05/20/14 documented as of this encounter
--- OUTSIDE RECORDS SUMMARY | 2024-12-26 08:33 | XMS_ITS | Encounter Summary ---
Author Organization [employer] Address [address] [place] [address] 7 [place] [address] Care Team Providers Care Mash Tub Cooker Operator Name Role Phone Ryan Latif MD Primary Care Provide r Reason for Referral * Consultation (Routine) - Closed Specialty Diagnoses / Procedures Referred By Contnga t Referred To Contact Physical Therapy Diagnoses Trochanteric bursitis of left hip Low back pain radiating to left leg Ryan Latif MD [address] [place] [address] Phone: tel: fax: [facility] [address] [place] [address] Phone: tel: fax: Referral ID Status Reason Start Date Expiration Date V isits Requested Visits Authorized [id number] Closed Specialty Services Required 12/23/2024 12/23/2025 1 1 Encounter Details Date Type Department Care Team (Late st Contact Info) Description 12/23/2024 3:00 PM EDT Office Visit [facility] MEDICINE [address] [place] [address] [phone] Ryan Latif MD [address] [place] [address] Trochanteric bursitis of left hip (Primary Dx); Type 2 diabetes mellitus without complication, without long-term current use of insulin (CMS/HCC); Low back pain radiating to left leg; Thrombocytopenia (CMS/HCC); Urge incontinence of urine Social History Tobacco Use Types Packs/Day Years [...] housing situation today? I have albino shannan 01/10/[address] you li [...] Mass Index 29.45 12/23/2024 2:54 PM EDT documented in this encounter Progress Notes * Ryan Bhardwaj MD - 12/23/2024 3:00 PM EDT SUBJECTIVE Angelina Roberto is a 74 y.o. female who presents for No chief complaint on file.. Diabetes She presents for her follow-up diabetic visit. She has type 2 diabetes mellitus. Pertinent negatives for hypoglycemia include no headaches. Pertinent negatives for diabetes include no chest pain. Hip Pain There was no injury mechanism. The pain is present in the left hip. The pain is at a severity of 8/10. Review of Systems Constitutional: Negative for fever. HENT: Negative for sore throat. Respiratory: Negative for cough and shortness of breath. Cardiovascular: Negative for chest pain. Gastrointestinal: Negative for abdominal pain. Neurological: Negative for headaches. Allergies Allergen Reactions Lidocaine Other Pt c/o numbness that lasted for 2 days, pt tolerated Mepivacaine Aspirin Other reaction(s): skin irritation,stomach ache , ABDOMEN PAIN OBJECTIVE Vitals: 12/23/24 1454 BP: 123/70 BP Location: Left arm Patient Position: Sitting BP Cuff Size: Adult Pulse: 78 Resp: 18 Temp: 96.9 ??F (36.1 ??C) TempSrc: Temporal SpO2: 99% Weight: 161 lb (73 kg) Height: 5' 2 (1.575 m) Physical [...] Visit Type 2 diabetes mellitus without complication ([facility]) Pt here for a f/u regarding her [...] POCT HGB A1C (Completed) Comprehensive Metabolic Panel CBC auto differential Urinalysis, Complete, with Reflex to Culture Trochanteric bursitis of left hip - Primary Pt with persistent c/o left [...] but were not referred. Will refer today Relevant Medications acetaminophen (Tylenol 8 Hour) 650 MG ER tablet Other Relevant Orders Referral to Physical Therapy Low back pain radiating to left leg [...] normal Patient finished PT. Pt seen at [facility] received steroid injections with no good results [...] with posterior element hypertrophic degenerative changes and bgns-lc-ifrjerjr spinal canal stenosis at L4-L5. Plan: referral to neurosurgeon Dr. shaffer 3. Disc bulging at L3-L4 and a small right subarticular disc protrusion at L2-L3 with posterior element hypertrophic degenerative changes and prominent dorsal fat pads without significant canal stenosis. 4. Severe left-sided and khoiwcot-kg-exkakh right-sided neural foraminal stenosis at L5-S1 with impingement on the exiting left L5 nerve root. Lefv-ub-grvfjokq bilateral neural foraminal stenosis at L4-L5 and ukpr-bf-jmsplztl left-sided and minimal right-sided foraminal stenosis at L3-L4. 5. Lower thoracic degenerative changes, as discussed above. Pt was seen by [facility] 09/15/2024 who recommended to follow th recommendations of Ortho and do PT Relevant Medications acetaminophen (Tylenol 8 Hour) 650 MG ER tablet Other Relevant Orders Referral to Physical Therapy Thrombocytopenia (CMS/HCC) Under the care of Dr Walter, last seen 10/13/2024 Pt with chronic mild thrombocytopenia. Hematological workup showed low vitamin B12 levels. Normal methylmalonic acid and negative intrinsic factor antibody. She is on oral vitamin B12 supplementation. They recommended: Follow up in 1 year. Urge incontinence of urine Under the care of Urology, s/p cystoscopy with botox injection Last seen by [facility] urology 10/30/2024 documented in this encounter Miscellaneous Notes * Assessment & Plan Note - Ryan Bhardwaj MD - 12/23/2024 3:12 PM EDT Associated Problem(s): Type 2 diabetes mellitus without [...] Plan Note - Ryan Bhardwaj MD - 12/23/2024 3:11 PM EDT Associated Problem(s): Urge incontinence of urine Under the care of Urology, s/p cystoscopy with botox injection Last seen by [facility] urology 10/30/2024 * Assessment & Plan Note - Ryan Bhardwaj MD - 12/23/2024 3:10 PM EDT Associated Problem(s): Thrombocytopenia (CMS/HCC) Under the care of Dr Walter, last seen 10/13/2024 Pt with chronic mild thrombocytopenia. Hematological workup showed low vitamin B12 levels. Normal methylmalonic acid and negative intrinsic factor antibody. She is on oral vitamin B12 supplementation. They recommended: Follow up in 1 year. * Assessment & Plan Note - Ryan Bhardwaj MD - 12/23/2024 3:09 PM EDT Associated Problem(s): Low back pain radiating to [...] normal Patient finished PT. Pt seen at [facility] received steroid injections with no good results [...] with posterior element hypertrophic degenerative changes and ntwx-ab-eynybdez spinal canal stenosis at L4-L5. Plan: referral to neurosurgeon Dr. shaffer 3. Disc bulging at L3-L4 and a small right subarticular disc protrusion at L2-L3 with posterior element hypertrophic degenerative changes and prominent dorsal fat pads without significant canal stenosis. 4. Severe left-sided and aqsnylso-gc-zrlsnt right-sided neural foraminal stenosis at L5-S1 with impingement on the exiting left L5 nerve root. Qbqg-up-nyporedw bilateral neural foraminal stenosis at L4-L5 and knad-ya-clwmfpyf left-sided and minimal right-sided foraminal stenosis at L3-L4. 5. Lower thoracic degenerative changes, as discussed above. Pt was seen by [facility] 09/15/2024 who recommended to follow th recommendations of Ortho and do PT * Assessment & Plan Note - Ryan Bhardwaj MD - 12/23/2024 3:07 PM EDT Associated Problem(s): Trochanteric bursitis of left hip Pt with persistent c/o left sided low [...] but were not referred. Will refer today documented in this encounter Plan of Treatment Upcoming Encounters Date Type Department Care Team (Late st Contact Info) Description 03/26/2025 3:00 PM EDT Office Visit [facility] MEDICINE [address] [place] [address] Ryan Latif MD [address] [place], [place] [phone] Scheduled Orders Name Type Priority Associated Diagnoses Orde r Schedule Comprehensive Metabolic Panel Lab Routine Type 2 diabetes mellitus without complication, without long-term current use of insulin ([facility]) Ordered: 12/23/2024 CBC auto differential Lab Routine Type 2 diabetes mellitus without complication, without long-term current use of insulin ([facility]) Expected: 12/23/2024 (Approximate), Expires: 12/23/2025 Urinalysis, Complete, with Reflex to Culture Lab Routine Type 2 diabetes mellitus without complication, without long-term current use of insulin ([facility]) Expected: 12/23/2024 (Approximate), Expires: 12/23/2025 Scheduled Referrals Name Type Priority Associated Diagnoses Orde r Schedule Referral to Physical Therapy Outpatient Referral Routine Trochanteric bursitis of left hip Low back pain radiating to left leg Expected: 12/23/2024 (Approximate), Expires: 12/23/2025 documented as of this encounter Procedures Procedure Name Priority Date/Time Associated Diagnosis Comments POCT GLYCATED HEMOGLOBIN, TOTAL Routine 12/23/2024 2:57 PM EDT Type 2 diabetes mellitus without complication, without long-term current use of insulin ([facility]) POCT GLUCOSE Routine 12/23/2024 2:55 PM EDT Type 2 diabetes mellitus without complication, without long-term current use of insulin ([facility]) documented in this encounter Results * (ABNORMAL) POCT HGB A1C (12/23/2024 2:57 PM EDT) Hemoglobin A1C 6.5(A) 4.0 - 6.0 % QC Media Lot # [id number] Lot# Expiration Date 825 Blood 12/23/2024 2:57 PM EDT Ryan Bhardwaj MD POINT OF CARE TEST EN TER/EDIT ORDERABLES Final Result * POCT Glucose (12/23/2024 2:55 PM EDT) Glucose Blood, POC 123 60 - 200 mg/dL QC Media Lot # [id number] Lot# Expiration Date Blood Capillary blood specimen / Unknown 12/23/2024 2:55 PM EDT Ryan Bhardwaj MD POINT OF CARE TEST EN TER/EDIT ORDERABLES Final Result documented in this encounter Visit Diagnoses Diagnosis Trochanteric bursitis of left hip- Primary Type 2 diabetes mellitus without complication, without long-term current use of insulin ([facility]) Low back pain radiating to left leg Lumbago Thrombocytopenia (CMS/[facility]) Unspecified thrombocytopenia Urge incontinence of urine Urge incontinence documented in this encounter Additional Health Concerns Assessment Noted Time PHQ-9 Depression Total Score: 12 025 2:58 PM EDT documented as of this encounter Care Teams Mash Tub Cooker Operator Relationship Specialty Start Date End Date Ryan Latif MD [address] [place] [address] PCP - General Internal Medicine 05/20/14 documented as of this encounter
--- OUTSIDE RECORDS SUMMARY | 2024-12-26 08:33 | XMS_ITS | Encounter Summary ---
Author Organization [employer] Address [address] [facility] 7t [place] [address] Care Team Providers Care Web Ui Designer Name Role Phone Ryan Latif MD Primary Care Provide r Reason for Visit * Reason Onset Date Comments Durable Medical Equipment 12/25/2024 Encounter Details Date Type Department Care Team ([facility] st Contact Info) Description 12/25/2024 Telephone [facility] MEDICINE [address] [place], [place] [phone] Ryan Latif MD [address] [place], [place] [phone] Durable Medical Equipment Social History Tobacco Use [...] encounter Miscellaneous Notes * Telephone Encounter - Yancy Chan - 12/25/2024 2:34 PM EDT Please see below message and advise if agree with DME. Thank you * Telephone Encounter - Joesph Batista - 12/25/2024 11:22 AM EDT TC nataliia Luna from [facility] requesting DME Diabetic Shoes ( last Doctors Note needed) 2. Hand held shower head 3. Rolator 4. Raised toilet seat To be faxed to [phone] documented in this encounter Plan of Treatment Upcoming Encounters Date Type Department Care Team (Late st Contact Info) Description 03/26/2025 3:00 PM EDT Office Visit [facility] MEDICINE [address] [place], [place] [phone] Ryan Latif MD [address] [place] [address] documented as of this encounter Visit Diagnoses Not on filedocumented in this encounter Additional Health Concerns Assessment Noted Time PHQ-9 Depression Total Score: 12 025 2:58 PM EDT documented as of this encounter Care Teams Web Ui Designer Relationship Specialty Start Date End Date Ryan Latif MD [address] [place] [phone] PCP - General Internal Medicine 05/20/14 documented as of this encounter
--- OUTSIDE RECORDS SUMMARY | 2024-12-26 08:33 | XMS_ITS | Encounter Summary ---
Author Organization [employer] Address [address] [facility] 7t [place] [address] Care Team Providers Care Quality Assurance Monitor Final Name Role Phone Ryan Latif MD Primary Care Provide r Encounter Details Date Type Department Care Team (Latest Contact Info) Description 12/23/2024 Travel Social History Tobacco Use Types Packs/Day [...] Description 03/26/2025 3:00 PM EDT Office Visit [facility] MEDICINE [address] [place] [address] Ryan Latif MD [address] [place] [address] documented as of this encounter Visit Diagnoses Not on filedocumented in this encounter Additional Health Concerns Assessment Noted Time PHQ-9 Depression Total Score: 12 025 2:58 PM EDT documented as of this encounter Care Teams Quality Assurance Monitor Final Relationship Specialty Start Date End Date Ryan Latif MD [address] [place] [address] PCP - General Internal Medicine 05/20/14 documented as of this encounter
--- OUTSIDE RECORDS SUMMARY | 2024-12-26 08:33 | XMS_ITS | Encounter Summary ---
Author Organization [employer] Address [address] [place] [address] 7t [place] [address] Care Team Providers Care Fish Processor Name Role Phone Ryan Latif MD Primary Care Provide r Encounter Details Date Type Department Care Team ([facility] Contact Info) Description 11/21/2022 Orders Only [facility] [address] [place], [place] [phone] Kamryn Cruz LPN Social History Tobacco Use [...] Encounters Date Type Department Care Team (Late Contact Info) Description 03/26/2025 3:00 PM EDT Office Visit [facility] [address] [place], [place] [phone] Ryan Latif MD [address] [place], [place] [phone] documented as of this encounter Procedures Procedure [...] PM EDT Narrative 12/19/2022 4:15 PM EDT ?[facility] ?[address] ?[place] [address] ?XRay Report ? Signed ? Patient: Angelina Bhardwaj ?MR#: [id number] ?? 9 ? : 1950 ?Acct:[id number] ? Age/Sex: 72 / F ?ADM Date: 12/19/22 ? Loc: HO.HHCX ? Attending Dr: Ryan Randolph MD ? Ordering Physician: Ryan Randolph MD ?? Date of Service: 12/19/22 ?? Procedure(s): XR hip LT min 2V ?? Accession Number(s): [id number] ? cc: Ryan Randolph MD ? EXAMINATION: [...] MD in OV> ?12/19/22 1612 ? DD/ 1517 ? TD/TT: ? Guidance Services Coordinator: WG ? Procedure Note Sonali Hill - 02/14/2023 [facility] [address] [place] [address] XRay Report Signed Patient: BentonJosé MiguelAngelina [facility]#: [id number] 9 : 1950Acct:[id number] Age/Sex: 72 / FADM Date: 12/19/22 Loc: HO.HHCX Attending Dr: Ryan Randolph MD Ordering Physician: Ryan Randolph MD Date of Service: 12/19/22 Procedure(s): XR hip LT min 2V Accession Number(s): [id number] cc: Ryan Randolph MD EXAMINATION: XR HIP, [...] MD inOV> 12/19/22 1612 DD/ 1517 TD/TT: Guidance Services Coordinator: TAMY [facility] External Provider IMG XR PROCEDURES Edited Result - Final * XR Lumbar Spine Complete 4+ Views (12/19/2022 3:17 PM EDT) Anatomical Region Laterality Modality Spine, L-spine Radiographic Latrice ging 12/19/2022 3:17 PM EDT Narrative 12/19/2022 4:18 PM EDT ?[facility] ?[address] ?[place] [address] ?XRay Report ? Signed ? Patient: Benton,Angelina M ?MR#: [id number] ?? 9 ? : 1950 ?Acct:[id number] ? Age/Sex: 72 / F ?ADM Date: 05/02/23 ? Loc: HO.HHCX ? Attending Dr: Ryan Randolph MD ? Ordering Physician: Ryan Randolph MD ?? Date of Service: 12/19/22 ?? Procedure(s): XR lumbar spine 4V min ?? Accession Number(s): [id number] ? cc: Ryan Randolph MD ? EXAMINATION: [...] MD in OV> ?12/19/22 1616 ? DD/ 16 ? TD/TT: ? Guidance Services Coordinator: WG ? Procedure Note Sonali Hill - 01/09/[address] [address] XRay Report Signed Patient: Angelina Bhardwaj MMR#: [id number] 9 : 1950Acct:[id number] Age/Sex: 72 / FADM Date: 12/19/22 Loc: HO.HHCX Attending Dr: Ryan Randolph MD Ordering Physician: Ryan Randolph MD Date of Service: 12/19/22 Procedure(s): XR lumbar spine 4V min Accession Number(s): [id number] cc: Ryan Randolph MD EXAMINATION: XR LUMBOSACRAL [...] MD inOV> 12/19/22 1616 DD/ 1517 TD/TT: Guidance Services Coordinator: WG [facility] External Provider IMG XR PROCEDURES Edited Result - Final documented in this encounter Visit Diagnoses Not on filedocumented in this encounter Care Teams Fish Processor Relationship Specialty Start Date End Date Ryan Latif MD [address] [place] [address] PCP - General Internal Medicine 05/20/14 documented as of this encounter
--- OUTSIDE RECORDS SUMMARY | 2024-12-26 08:33 | XMS_ITS | Encounter Summary ---
Author Organization [employer] Address [address] [place] [address] 7t [place] [address] Care Team Providers Care Civil Service Worker Name Role Phone Ryan Latif MD Primary Care Provide r Encounter Details Date Type Department Care Team (Late Contact Info) Description 01/04/2023 Orders Only [facility] MED & PEDS [address] [place], [place] [phone] Kamryn Cruz LPN Social History Tobacco Use [...] Description 03/26/2025 3:00 PM EDT Office Visit [facility] MEDICINE 230 [place], [place] [phone] Ryan Latif MD 230 [place], [place] [phone] documented as of this encounter Visit Diagnoses Not on filedocumented in this encounter Additional Health Concerns Assessment Noted Time PHQ-9 Depression Total Score: 7 12/20/19 23 2:03 PM EDT documented as of this encounter Care Teams Civil Service Worker Relationship Specialty Start Date End Date Ryan Latif MD [address] [place] [address] PCP - General Internal Medicine 05/20/14 documented as of this encounter
--- OUTSIDE RECORDS SUMMARY | 2024-12-26 08:33 | XMS_ITS | Encounter Summary ---
Author Organization [employer] Address 75 [facility] 7t [place] [address] Care Team Providers Care Insulation Inspector Name Role Phone Ryan Latif MD Primary Care Provide r Reason for Visit * Reason Onset Date Comments Durable Medical Equipment 12/23/2024 Encounter Details Date Type Department Care Team ([facility] Contact Info) Description 12/23/[address] [facility] MEDICINE [address] [place], [place] [phone] Ryan Latif MD [address] [place], [place] [phone] Durable Medical Equipment Social History Tobacco Use [...] encounter Miscellaneous Notes * Telephone Encounter - Janeth Yan - 12/25/2024 11:13 AM EDT Tc from [facility] in regards Rx for DME supplies requesting a callback to clarify information with PCP orMA Please return call [phone] * Telephone Encounter - Lorna Olguin MA - 12/23/2024 3:38 PM EDT Pt had some concerns over two DME's that was expressed to her were going to be ordered by a [facility] Coordinator named Cheryl . Expressed to pt that I didn't see anything in the system for a toilet grab bar or new shower head. Pt expressed that the [facility] coordinator mentioned that she was putting the order in for her and that she will contact her again with any updates. Stated to pt that it is possible she did the script and that it will get sent to Medical Records first to then come up to the floor to get signed by pcp. Pt understood the possibility and mentioned that she will give that [facility] coordinator a call so that they can give the clinic a call to express the details of the script that way we can keep our eyes on it. LB documented in this encounter Plan of Treatment Upcoming Encounters Date Type Department Care Team (Late st Contact Info) Description 03/26/2025 3:00 PM EDT Office Visit [facility] MEDICINE [address] [place] [address] Ryan Latif MD [address] [place] [address] documented as of this encounter Visit Diagnoses Not on filedocumented in this encounter Additional Health Concerns Assessment Noted Time PHQ-9 Depression Total Score: 12 025 2:58 PM EDT documented as of this encounter Care Teams Insulation Inspector Relationship Specialty Start Date End Date Ryan Latif MD [address] [place], [place] [phone] PCP - General Internal Medicine 05/20/14 documented as of this encounter
--- OUTSIDE RECORDS SUMMARY | 2024-12-26 08:33 | XMS_ITS | Encounter Summary ---
Author Organization [employer] Address [address] [facility] 7t [place] [address] Care Team Providers Care Feather Trimmer Name Role Phone Ryan Latif MD Primary Care Provide r Reason for Visit * Reason Comments Med Refill Encounter Details Date Type Department Care Team ([facility] Contact Info) Description 05/29/2023 Refill [facility]INE [address] [place], [place] [phone] Ryan Latif MD [address] [place], [place] [phone] Chronic GERD Social History Tobacco Use Types Packs/Day Years Used Date Smoking Tobacco: Never Passive Smoke Exposure: Never Smokeless Tobacco: Never Alcohol Use Standard Drinks/Week Comments Defer 0 (1 standard drink = 0.6 oz pur e alcohol) Depression Answer Date Recorded Patient Health Questionnaire-9 Score 7 12/19/2022 Housing Stability Answer Date Recorded What is your housing situation today? I have albino shannan 05/27/[address] you li [...] Description 03/26/2025 3:00 PM EDT Office Visit [facility] [address] [place] [address] Ryan Latif MD [address] [place] [address] documented as of this encounter Visit Diagnoses Diagnosis Chronic GERD documented in this encounter Additional Health Concerns Assessment Noted Time PHQ-9 Depression Total Score: 7 12/20/19 23 2:03 PM EDT documented as of this encounter Care Teams Feather Trimmer Relationship Specialty Start Date End Date Ryan Latif MD [address] [place] [address] PCP - General Internal Medicine 05/20/14 documented as of this encounter
--- OUTSIDE RECORDS SUMMARY | 2024-12-26 08:33 | XMS_ITS | Encounter Summary ---
Author Organization [employer] Address [address] [place] [address] 7t [place] [address] Care Team Providers Care Drilling Supervisor Name Role Phone Rayn Latif MD Primary Care Provide r Reason for Visit * Reason Comments Med Refill Encounter Details Date Type Department Care Team ([facility] Contact Info) Description 05/17/2023 Refill [facility] MEDICINE [address] [place] [phone] Ryan Latif MD 230 [place], [place] [phone] Chronic GERD Social History Tobacco Use Types [...] Upcoming Encounters Date Type Department Care Team ([facility] Contact Info) Description 03/26/2025 3:00 PM EDT Office Visit [facility] MEDICINE [address] [place] [phone] Ryan Latif MD 230 [place], [place] [phone] documented as of this encounter Visit Diagnoses Diagnosis Chronic GERD documented in this encounter Additional Health Concerns Assessment Noted Time PHQ-9 Depression Total Score: 7 12/20/19 23 2:03 PM EDT documented as of this encounter Care Teams Drilling Supervisor Relationship Specialty Start Date End Date Ryan Latif MD 230 [place] [address] PCP - General Internal Medicine 05/20/14 documented as of this encounter
--- OUTSIDE RECORDS SUMMARY | 2024-12-26 08:33 | XMS_ITS | Encounter Summary ---
Author Organization [employer] Address 75 [facility] 7t [place] [address] Care Team Providers Care Chummer Name Role Phone Ryan Latif MD Primary Care Provide r Reason for Visit * Reason Comments Med Refill Encounter Details Date Type Department Care Team ([facility] Contact Info) Description 06/11/2023 Refill [facility] MEDICINE 230 [place], [place] [phone] Ryan Latif MD 230 [place], [place] [phone] Chronic GERD Social History Tobacco Use Types [...] Description 03/26/2025 3:00 PM EDT Office Visit [facility] MEDICINE [address] [place] [address] Ryan Latif MD [address] [place] [address] documented as of this encounter Visit Diagnoses Diagnosis Chronic GERD documented in this encounter Additional Health Concerns Assessment Noted Time PHQ-9 Depression Total Score: 7 12/20/19 23 2:03 PM EDT documented as of this encounter Care Teams Chummer Relationship Specialty Start Date End Date Ryan Latif MD [address] [place] [address] PCP - General Internal Medicine 05/20/14 documented as of this encounter
[2024-12-26 11:07] LABS: MANUAL DIFF FLAG NO
[2024-12-26 11:10] LABS: Appearance Urine Clear; Color Urine Yellow; Glucose Urine UA Negative (Negative); Leukocyte Esterase Urine Trace (Negative); Nitrite Urine Negative (Negative); PH 6.5 (5.0-9.0); UMIC TRIGGER UACC YES; Urine Blood Negative (Negative); Urine Ketones Negative (Negative); Urine Protein Negative (Neg-Trace)
[2024-12-26 11:18] LABS: Basophils Percent Auto 0.4 % (0-2); Eosinophils Absolute Auto 0.1 X10*3/uL (0.0-0.4); Eosinophils Percent Auto 0.7 % (0-4); Hematocrit 43.5 % (37.0-47.0); Hemoglobin 14.1 g/dl (12.0-16.0); Imm Gran Abs Auto 0.03 X10*3/uL (0.00-0.03); Imm Gran Pct Auto 0.4 % (0.0-0.4); Lymphocytes Absolute Auto 2.7 X10*3/uL (1.2-4.9); Lymphocytes Percent Auto 35.4 % (20-40); Mean Corpuscular HGB Conc 32.4 g/dl (31.0-35.0); Mean Corpuscular Hemoglobin 29.9 pg (27.0-33.0); Mean Corpuscular Volume 92.4 fL (80.0-98.0); Mean Platelet Volume 12.4 fL (9.4-12.3); Monocytes Absolute Auto 0.7 X10*3/uL (0.1-1.2); Monocytes Percent Auto 8.5 % (2-11); Neutrophils Absolute Auto 4.2 x10*3/uL (2.0-8.3); Neutrophils Percent Auto 54.6 % (45-73); Platelet Count 129 X10*3/uL (160-400); Red Blood Count 4.71 X10*6/uL (4.20-5.50); Red Cell Distribution Width 13.6 % (11.0-16.0); White Blood Count 7.6 X10*3/uL (4.8-10.8)
[2024-12-26 11:27] LABS: Alanine Aminotransferase 30 U/L (0-31); Albumin Level 4.2 g/dL (3.5-5.0); Alkaline Phosphatase 112 U/L (39-117); Anion Gap 9 (12-20); Aspartate Amino Transferase 36 U/L (5-31); Bilirubin Total 0.5 mg/dL (0.0-1.0); Blood Urea Nitrogen 10 mg/dL (9-16); Calcium 10.1 mg/dL (8.4-10.2); Carbon Dioxide 32 mmol/L (22-29); Chloride 101 mmol/L (96-108); Estimated Glomerular Filt Rate > 60; Glucose Random 108 mg/dL (60-115); Potassium 4.4 mmol/L (3.3-5.1); Sodium 138 mmol/L (135-145); Total Protein 7.2 g/dL (6.5-8.0)
[2024-12-26 11:37] LABS: Bacteria Urine Trace (None Seen); Calcium Oxalate Crystals Urine Present; Hyaline Casts Urine 0-2 /LPF (0-2); RBC Urine 0-2 /HPF (0-2); WBC Urine 0-5 /HPF (0-5)
== END 2024-12-26 08:23 | disposition home or self-care (01) ==
LOC: HO.HHCL 08:22
PROVIDERS: Visit Provider Internal Medicine
DX: E11.9 Type 2 diabetes mellitus without complications (principal)
CPT/HCPCS: 36415; 80053; 81001; 85025

== ENCOUNTER 2025-02-12 13:51 | Outpatient (RCR) | payer OTHER, SELFPAY | END 2025-03-26 09:02 | disposition home or self-care (01) | LOC: HO.PT 13:51 | PROVIDERS: PCP Internal Medicine; Visit Provider Internal Medicine | DX: M70.62 Trochanteric bursitis, left hip (principal); M54.50 Low back pain, unspecified; M79.605 Pain in left leg | CPT/HCPCS: 97110; 97162; 97535 ==

== ENCOUNTER 2025-05-13 14:00 | Outpatient (AMB) | payer OTHER, SELFPAY ==
--- OUTSIDE RECORDS SUMMARY | 2023-11-30 05:30 | XMS_ITS ---
Author Organization [facility] Address [address] [place] [id number] Care Team Providers Care Search And Rescue Officer Name Role Phone Yoshi Bhardwaj MD, Ryan Primary Care Provide r Tolu Mcclendon Unavailable [phone] REASON FOR VISIT screening, hx polyps,fam hx colon ca Problems Problem Type SNOMED Code ICD Code Onset Dates Problem Status W/U Status Risk Notes Problem Diverticular disease of colon (948392752) Diverticulosis of large intestine without perforation or abscess without bleeding (K57.30) Active confirmed Encounters Encounter Location Date Provider Diagnosis [facility] Outpatient [address], [place] [id number] 11/30/2023 Tolu Chan Encounter for scre ening colonoscopy Z12.11 ; Colon polyps K63.5 ; Family history of colon cancer Z80.0 ; Diverticulosis of large intestine without perforation or abscess without bleeding K57.30 and Other hemorrhoids K64.8 Assessments Encounter Date Diagnosis (ICD Code) Assessment Notes Treatment Notes Treatment Clinical Notes Section Notes 11/30/2023 Encounter for screening colonoscopy (ICD-10 - Z12.11) 11/30/2023 Colon polyps (ICD-10 - K63.5) 11/30/2023 Family history of colon cancer (ICD-10 - Z80.0) 11/30/2023 Diverticulosis of large intestine without perforation or abscess without bleeding (ICD-10 - K57.30) 11/30/2023 Other hemorrhoids (ICD-10 - K64.8) Plan Of Treatment No Information Progress Notes * SHARON WATTSOB: (75 yo F)Acc No.[id number]:11/30/2023 COLON WITH MAC Patient: HERB KATZ Provider: Gabriela Chan MD :1950 A ge:73 Y S ex:Female Date:11/30/2023 Address:[address] [place] [address] [place], [id number] Pcp:Ryan lugo MD Subjective: * Chief Complaints: * 1 . Screening, hx polyps,fam hx colon ca. * Medical History: Objective: * Vitals: Assessment: * Assessment: 1. E ncounter for screening colonoscopy - Z12.11 (Primary) 2 . C olon polyps - K63.5 3 . F amily history of colon cancer - Z80.0 4 . D iverticulosis of large intestine without perforation or abscess without bleeding - K57.30 5 . O ther hemorrhoids - K64.8 Plan: * Treatment: * Procedure Codes: 4 5385 LESION REMOVAL COLONOSCOPY, Modifiers: 33 * * The named appointment provid er may or may not be the originator of this progress note, and it is not deemed complete until electronically signed by the appointment provider. Sign off status: Pending * Provider: Gabriela Chan MD Date: 0 11/30/2023 Generated for Vinnie calhoun/Emiliano/Jaguaritting on: 0 05/13/2025 04:29 PM EDT
--- NOTE | 2025-05-13 14:13 | MHC.OFFVIS ---
Vital Signs 05/13/25 14:19 Height 5 ft 2 in Weight 161 lb BMI 29.4 Intake Visit Reasons: OV-Lt hip trochanteric bursitis last inj 09/08/24 Intake Note: Angelina is a 74 year old female who presents today for a new patient evaluation of left hip pain. At her last visit on 09/08/24 she was given an injection and an order for physical therapy was placed. Today patient reports injection provided her with relief for a couple of days. She continues to have constant pain at the posterior aspect of hip. No improvement with attending physical therapy. States recently prescribed acetaminophen by her PCP however this does not help with her pain. Channeler Outsole Required: Yes Channeler Outsole Services: Channeler Outsole Present Channeler Outsole Name: César ID#[id number] Allergies aspirin (ASPIRIN) Allergy (Unknown, Verified 05/13/25 14:15) upset stomach HPI HPI OV-Lt hip trochanteric bursitis last inj 09/08/24: Details: 75-year-old female returns to the office today for a follow-up left hip pain. I last saw her in August of 2024 and performed a left trochanteric bursa injection. The patient states the injection only lasted for approximately a day. She continues to complain of pain in the groin but also along the lateral side of the hip which radiates to her low back region. She states the pain does radiate down her leg. She denies burning sensation. She was working with physical therapy with minimal benefit. [facility] Medical History HTN (hypertension) Diabetes mellitus type 2 in obese Hx of Helicobacter infection GERD (gastroesophageal reflux disease) History of migraine headaches Tubular adenoma Hypertriglyceridemia Osteopenia Cervical dysplasia CVA (cerebral vascular accident) Thrombocytopenia Surgical History History of bilateral carpal tunnel release History of tubal ligation History of bladder suspension procedure Family History Father Diabetes Mother Diabetes Social History Household Members: Spouse and Family Housing: House Patient Tobacco Use Status: Never used Tobacco service: No 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 Left hip limited external rotation. Pain with straight leg raise. Tenderness with palpation over the SI joint. Assessment & Plan Assessment & Plan (1) Trochanteric bursitis of left hip: Code(s): M70.62 - Trochanteric bursitis, left hip Category: Medical (2) Osteoarthritis of left hip: Code(s): M16.12 - Unilateral primary osteoarthritis, left hip Category: Medical (3) Chronic sacroiliac joint pain: Code(s): M53.3 - Sacrococcygeal disorders, not elsewhere classified; G89.29 - Other chronic pain Plan I discussed options with the patient which includes a left hip joint injection which will be performed under fluoroscopy at the hospital. She is interested in this injection and this has been ordered for her. I also recommend having an evaluation done by Dr. Oropeza to further evaluate her SI joint. I explained to the patient the 2 are both closely related and it is difficult to figure out the source of her pain. She may have a problem with both joints and trying to find the best treatment option may be challenging. She will make an appointment with Dr. Oropeza and also set up an appointment for a left hip intra-articular injection. Orders: Orders FL Guided Asp Inj Major Jt LT Today M16.12 - Unilateral primary osteoarthritis, left hip Coding Level of Care Code Est Pt Level 3 (07073) Complex EM visit Add On G2211 Diagnoses Trochanteric bursitis of left hip M70.62 Osteoarthritis of left hip M16.12 Chronic sacroiliac joint pain M53.3; G89.29
[2025-05-13 14:19] VITALS: BMI 29.4
--- OUTSIDE RECORDS SUMMARY | 2025-05-13 16:29 | XMS_ITS | Encounter Summary ---
Author Organization [employer] Address [address] [place] [address] 7t [place] [address] Care Team Providers Care Lead Java Software Engineer Name Role Phone Ryan Latif MD Primary Care Provide r Reason for Visit * Reason Comments Med Refill Encounter Details Date Type Department Care Team (Late Contact Info) Description 05/17/2023 Refill [facility] MEDICINE [address] [place] [phone] Ryan Latif MD [address] [place] [phone] Chronic GERD Social History Tobacco Use Types [...] Department Care Team (Late Contact Info) Description 07/09/2025 3:00 PM EST Office Visit [facility] MEDICINE [address] [place] [phone] Ryan Latif MD 230 [place], [place] [phone] documented as of this encounter Visit Diagnoses Diagnosis Chronic GERD documented in this encounter Additional Health Concerns Assessment Noted Time PHQ-9 Depression Total Score: 7 12/20/19 23 2:03 PM EDT documented as of this encounter Care Teams Lead Java Software Engineer Relationship Specialty Start Date End Date Ryan Latif MD 230 [facility] [place] [address] PCP - General Internal Medicine 05/20/14 documented as of this encounter
--- OUTSIDE RECORDS SUMMARY | 2025-05-13 16:29 | XMS_ITS | Encounter Summary ---
Author Organization [employer] Address [address] [facility] 7t [place] [address] Care Team Providers Care Corrections Unit Supervisor Name Role Phone Ryan Latif MD Primary Care Provide r Reason for Visit * Reason Comments Med Refill Encounter Details Date Type Department Care Team ([facility] Contact Info) Description 06/06/2023 Refill [facility] MEDICINE 230 [place], [place] [phone] Ryan Latif MD [address] [place], [place] [phone] Chronic GERD Social History Tobacco Use Types Packs/Day Years Used Date Smoking Tobacco: Never Passive Smoke Exposure: Never Smokeless Tobacco: Never Alcohol Use Standard Drinks/Week Comments Defer 0 (1 standard drink = 0.6 oz pur e alcohol) Depression Answer Date Recorded Patient Health Questionnaire-9 Score 7 12/19/2022 Housing Stability Answer Date Recorded What is your housing situation today? I have albino campbell 06/06/[address] you [...] Care Team (Late st Contact Info) Description 07/09/2025 3:00 PM EST Office Visit [facility] MEDICINE 230 [place] [address] Ryan Latif MD [address] [place] [address] documented as of this encounter Visit Diagnoses Diagnosis Chronic GERD documented in this encounter Additional Health Concerns Assessment Noted Time PHQ-9 Depression Total Score: 7 12/20/19 23 2:03 PM EDT documented as of this encounter Care Teams Corrections Unit Supervisor Relationship Specialty Start Date End Date Ryan Latif MD [address] [place] [address] PCP - General Internal Medicine 05/20/14 documented as of this encounter
--- OUTSIDE RECORDS SUMMARY | 2025-05-13 16:29 | XMS_ITS | Encounter Summary ---
Author Organization [employer] Address [address] [facility] 7t [place] [address] Care Team Providers Care Surface Logging Systems Logger Name Role Phone Ryan Latif MD Primary Care Provide r Encounter Details Date Type Department Care Team (Late st Contact Info) Description 09/14/2022 Orders Only [facility] [address] [place], [place] [phone] Kamryn Cruz LPN Social History Tobacco Use [...] Description 07/09/2025 3:00 PM EST Office Visit [facility] 230 [place] [address] Ryan Latif MD 230 [place] [address] documented as of this encounter Visit Diagnoses Not on filedocumented in this encounter Care Teams Surface Logging Systems Logger Relationship Specialty Start Date End Date Ryan Latif MD 230 [place] [address] PCP - General Internal Medicine 05/20/14 documented as of this encounter
--- OUTSIDE RECORDS SUMMARY | 2025-05-13 16:29 | XMS_ITS | Encounter Summary ---
Author Organization [employer] Address [address] [facility] 7t [place] [address] Care Team Providers Care Clinical Phlebotomist Name Role Phone Ryan Latif MD Primary Care Provide r Encounter Details Date Type Department Care Team (Late Contact Info) Description 01/04/2023 Orders Only [facility] MED & PEDS [address] [place], [place] [phone] Kamryn Cruz LPN Social History Tobacco Use [...] Description 07/09/2025 3:00 PM EST Office Visit [facility] MEDICINE 230 [place], [place] [phone] Ryan Latif MD 230 [place], [place] [phone] documented as of this encounter Visit Diagnoses Not on filedocumented in this encounter Additional Health Concerns Assessment Noted Time PHQ-9 Depression Total Score: 7 12/20/19 23 2:03 PM EDT documented as of this encounter Care Teams Clinical Phlebotomist Relationship Specialty Start Date End Date Ryan Latif MD 230 [place] [address] PCP - General Internal Medicine 05/20/14 documented as of this encounter
--- OUTSIDE RECORDS SUMMARY | 2025-05-13 16:29 | XMS_ITS | Encounter Summary ---
Author Organization [employer] Address 75 [facility] 7t [place] [address] Care Team Providers Care Pile Driving Technician Name Role Phone Ryan Latif MD Primary Care Provide r Encounter Details Date Type Department Care Team (Late st Contact Info) Description 08/25/2022 Orders Only [facility] MED & PEDS [address] [place], [place] [phone] Kamryn Cruz LPN Social History Tobacco Use [...] Description 07/09/2025 3:00 PM EST Office Visit [facility] MEDICINE [address] [place] [address] Ryan Latif MD 230 [place] [address] documented as of this encounter Visit Diagnoses Not on filedocumented in this encounter Care Teams Pile Driving Technician Relationship Specialty Start Date End Date Ryan Latif MD [address] [place] [address] PCP - General Internal Medicine 05/20/14 documented as of this encounter
--- OUTSIDE RECORDS SUMMARY | 2025-05-13 16:29 | XMS_ITS | Encounter Summary ---
Author Organization [employer] Address [address] [facility] [address] [place] [address] Care Team Providers Care Home Hospice Rn Name Role Phone Ryan Latif MD Primary Care Provide r Encounter Details Date Type Department Care Team (Late st Contact Info) Description 11/21/2022 Orders Only [facility] MED & PEDS [address] [place], [place] [phone] Kamryn Cruz LPN Social History Tobacco Use [...] Description 07/09/2025 3:00 PM EST Office Visit [facility] MEDICINE [address] [place], [place] [phone] Ryan Latif MD [address] [place], [place] [phone] documented as of this encounter Procedures Procedure [...] PM EDT Narrative 12/19/2022 4:15 PM EDT [address] [address] XRay Report Signed Patient: Angelina Bhardwaj MR#: [id number] 9 : 1950 Acct:[id number] Age/Sex: 72 / F ADM Date: 12/19/22 Loc: HO.HHCX Attending Dr: Ryan Randolph MD Ordering Physician: Ryan Randolph MD Date of Service: 12/19/22 Procedure(s): XR hip LT min 2V Accession Number(s): [id number] cc: Ryan Randolph MD EXAMINATION: XR HIP, [...] By: <Electronically signed by Rohan Rodas MD in OV> 12/19/22 1612 DD/ 1517 TD/TT: Eyelet Riveter: TAMY Procedure Note Donotuseinterpreter, Image - 02/14/[address] [address] XRay Report Signed Patient: Angelina Bhardwaj MMR#: [id number] 9 : 1950Acct:[id number] Age/Sex: 72 / FADM Date: 12/19/22 Loc: HO.HHCX Attending Dr: Ryan Randolph MD Ordering Physician: Ryan Randolph MD Date of Service: 12/19/22 Procedure(s): XR hip LT min 2V Accession Number(s): [id number] cc: Ryan Randolph MD EXAMINATION: XR HIP, [...] MD inOV> 12/19/22 1612 DD/ 1517 TD/TT: Eyelet Riveter: TAMY [facility] External Provider IMG XR PROCEDURES Edited Result - Final * XR Lumbar Spine Complete 4+ Views (12/19/2022 3:17 PM EDT) Anatomical Region Laterality Modality Spine, L-spine Radiographic Latrice ging 12/19/2022 3:17 PM EDT Narrative 12/19/2022 4:18 PM EDT [address] [address] XRay Report Signed Patient: Angelina Bhardwaj MR#: [id number] 9 : 1950 Acct:[id number] Age/Sex: 72 / F ADM Date: 12/19/22 Loc: HO.HHCX Attending Dr: Ryan Randolph MD Ordering Physician: Ryan Randolph MD Date of Service: 12/19/22 Procedure(s): XR lumbar spine 4V min Accession Number(s): [id number] cc: Ryan Randolph MD EXAMINATION: XR LUMBOSACRAL [...] By: <Electronically signed by Rohan Rodas MD in OV> 12/19/22 1616 DD/ 1517 TD/TT: Eyelet Riveter: TAMY Procedure Note Donotuseinterpreter, Image - 01/09/[address] [address] XRay Report Signed Patient: Angelina Bhardwaj [facility]#: [id number] 9 : 1950Acct:[id number] Age/Sex: 72 / FADM Date: 12/19/22 Loc: HO.HHCX Attending Dr: Ryan Randolph MD Ordering Physician: Ryan Randolph MD Date of Service: 12/19/22 Procedure(s): XR lumbar spine 4V min Accession Number(s): [id number] cc: Ryan Randolph MD EXAMINATION: XR LUMBOSACRAL [...] MD inOV> 12/19/22 1616 DD/ 1517 TD/TT: Eyelet Riveter: TAMY [facility] External Provider IMG XR PROCEDURES Edited Result - Final documented in this encounter Visit Diagnoses Not on filedocumented in this encounter Care Teams Home Hospice Rn Relationship Specialty Start Date End Date Ryan Latif MD [address] [place] [id number] PCP - General Internal Medicine 05/20/14 documented as of this encounter
--- OUTSIDE RECORDS SUMMARY | 2025-05-13 16:29 | XMS_ITS | Clinical Summary ---
Author Organization [address] [facility] Address [address] [place] [address] Phone Care Team Providers Care Software Support Analyst Name Role Phone Ryan Randolph MD Primary [...] DIRECTED TO TEST BLOOD SUGAR TWICE DAILY Active meclizine (ANTIVERT) 12.5 mg tablet TAKE 1 TABLET BY MOUTH TWICE DAILY NEEDED FOR DIZZINESS 3 Active Social History Tobacco Use Types Packs/Day Years [...] 12/01/2024 2:55 PM EDT Plan of Treatment Health Maintenance Due Date Last Done Comments Diabetes: Annual Foot Exam 1960 Diabetes: Annual Retina Eye Exam 1960 Pneumococcal Vaccine: 50+ Years (2 of 2 - PPSV23) 01/18/2017 11/23/2016 Depression Screening 08/20/2024 Colorectal Cancer Screening: Colonoscopy 09/25/2024 Diabetes: Annual Urine Albumin-Creatinine Ratio (uACR) 09/25/2024 12/29/2022 Falls Risk Assessment 09/25/2024 Hepatitis C Screening 09/25/2024 Medicare Annual Wellness Visit 09/25/2024 Osteoporosis Screening (Bone Density Screening) 09/25/2024 Social Influencers of Health Screening 09/25/2024 Diabetes: Blood Sugar Control Test (HGBA1C) 03/02/2025 09/02/2024 COVID-19 Vaccine ( season) 2025 06/05/2024, 10/25/2023, 05/30/2022, Additional history exists Influenza Vaccine (#1) 2025 , 05/30/2022, 05/17/2021, Additional history exists RSV Immunization Adult Patients (1 - 1-dose 75+ series) 2025 Diabetes: Annual GFR (Glomerular Filtration Rate) 09/11/2025 09/11/2024 Hypertension/CHF/CAD Annual BMP Blood Test 09/11/2025 09/11/2024 Cholesterol Screening (Lipid Panel) 09/11/2029 09/11/2024 DTaP,Tdap,and Td Vaccines (3 - Td or Tdap) 04/20/2032 04/20/2022, 09/16/2010 Zoster Vaccines Completed 11/01/2022, 08/20, 12/17/2014 HIB Vaccines Aged Out No longer eligi [...] patient's age to complete this topic [place] [address] [place] [address] MEDICARE Member Subscriber Plan / Payer (Ef fective 2015-Present) Name:Angelina Bhardwaj Relation to Subscriber:Self Name:Angelina Prescott Payer ID:[id number] Group ID:[id number] Type:Not on file Address: [facility] [place] [id number] Care Teams Software Support Analyst Relationship Specialty Start Date End Date Ryan Randolph MD [address] [place] [phone] PCP - General Internal Medicine 09/25/24
--- OUTSIDE RECORDS SUMMARY | 2025-05-13 16:29 | XMS_ITS | Patient Health Record ---
Author Organization [facility] Address [address] [place] [address] Care Team Providers Care Mft Name Role Phone Yoshi Bhardwaj MD, Ryan Primary Care Provide Tolu Arnold Unavailable [phone] Allergies Allergen (clinical drug ingredient) Drug/Non Drug [...] Problem Status W/U Status Risk Notes Problem 666621114 Colon cancer screening (Z12.11) Active confirmed Problem 761624825 History of adenomatous polyp of colon (Z86.010) Active confirmed Problem Diverticular disease of colon (039456646) Diverticulosis of large intestine without perforation or abscess without bleeding (K57.30) Active confirmed Problem 296824511876140 Preprocedural examination (Z01.818) Active confirmed Problem 501645560 Family history o f colon cancer (Z80.0) Active confirmed Problem 453162243 Anticoagulant long-term use (Z79.01) Active confirmed Plan Of Treatment Pending Test Test Name Order Date Pathology 11/30/2023 Future Test Test Name Order Date COLONOSCOPY 08/28/2023 Insurance Providers Payer Name Payer Address Payer Phone Subscriber Number Group Number Insured Name Patient Relationship to Insured Coverage Start Date Coverage End Date [facility] [address] Attn Claims [place] [id number] [id number] HERB WATTS Self - patient is the insured Medical (General) History Medical History History ICD Code NIDDM CVA in 2018 with some right sided weakne ss Hypertension Denies IA,DM,CVA,Lung disease,renal dise ase Tubular adenomas removed via colonoscopy in 2017 at [facility] Surgical History Surgery Date(Month/Year) Bilateral hand surgeries Lower back surgery Tubal ligation
--- OUTSIDE RECORDS SUMMARY | 2025-05-13 16:29 | XMS_ITS | Encounter Summary ---
Author Organization [employer] Address [address] [facility] [address] [place] [address] Care Team Providers Care Clerk Guide Name Role Phone Ryan Latif MD Primary Care Provide r Reason for Visit * Reason Comments Med Refill Encounter Details Date Type Department Care Team ([facility] Contact Info) Description 05/29/2023 Refill [facility] MEDICINE [address] [place], [place] [phone] Ryan Latif MD [address] [place] [address] Chronic GERD Social History Tobacco Use Types Packs/Day Years Used Date Smoking Tobacco: Never Passive Smoke Exposure: Never Smokeless Tobacco: Never Alcohol Use Standard Drinks/Week Comments Defer 0 (1 standard drink = 0.6 oz pur e alcohol) Depression Answer Date Recorded Patient Health Questionnaire-9 Score 7 12/19/2022 Housing Stability Answer Date Recorded What is your housing situation today? I have albino campbell 05/27/[address] you [...] Description 07/09/2025 3:00 PM EST Office Visit [facility] MEDICINE [address] [place] [address] Ryan Latif MD [address] [place] [address] documented as of this encounter Visit Diagnoses Diagnosis Chronic GERD documented in this encounter Additional Health Concerns Assessment Noted Time PHQ-9 Depression Total Score: 7 12/20/19 23 2:03 PM EDT documented as of this encounter Care Teams Clerk Guide Relationship Specialty Start Date End Date Ryan Latif MD [address] [place] [address] PCP - General Internal Medicine 05/20/14 documented as of this encounter
--- OUTSIDE RECORDS SUMMARY | 2025-05-13 16:29 | XMS_ITS | Encounter Summary ---
Author Organization [employer] Address [address] [facility] [address] [place] [address] Care Team Providers Care Plug Stitcher Name Role Phone Ryan Latif MD Primary Care Provide r Reason for Visit * Reason Comments Med Refill Encounter Details Date Type Department Care Team ([facility] Contact Info) Description 06/11/2023 Refill [facility] MEDICINE [address] [place], [place] [phone] Ryan Latif MD [address] [place], [place] [phone] Chronic GERD Social History Tobacco Use Types [...] Description 07/09/2025 3:00 PM EST Office Visit [facility] MEDICINE [address] [place] [address] Ryan Latif MD [address] [place] [address] documented as of this encounter Visit Diagnoses Diagnosis Chronic GERD documented in this encounter Additional Health Concerns Assessment Noted Time PHQ-9 Depression Total Score: 7 12/20/19 23 2:03 PM EDT documented as of this encounter Care Teams Plug Stitcher Relationship Specialty Start Date End Date Ryan Latif MD [address] [place] [address] PCP - General Internal Medicine 05/20/14 documented as of this encounter
--- OUTSIDE RECORDS SUMMARY | 2025-05-13 16:29 | XMS_ITS | Clinical Summary ---
Author Organization [employer] Address [address] [facility] 7[address] [place] [address] Care Team Providers Care C Engineer Name Role Phone Ryan Latif MD Primary Care Provide r Allergies Active Allergy Reactions Criticality Noted Date Comments Aspirin 03/07/2012 Other reaction(s): skin irritation,stomach ache , ABDOMEN PAIN Lidocaine Other Medium 06/05/2024 Pt c/o numbness that lasted for 2 days, pt tolerated Mepivacaine Medications Continuous Blood Gluc Precipitation Equipment Tender (FreeStyle Nerissa 2 [place]) deviceIndication s:Type 2 diabetes mellitus without complication, without long-term current use of insulin ([facility]) 1 applicator with breakfast, with lunch, and with evening meal. 1 each 02/07/20 23 Active Continuous Blood Gluc Sensor (FreeStyle Nerissa 2 Sensor) miscIndications: Type 2 diabetes mellitus without complication, without long-term current use of insulin ([facility]) 1 applicator before breakfast, before lunch, and before evening meal. 2 each 02/07/20 23 Active meclizine (Antivert) 12.5 MG tabletIndication s:Dizziness and giddiness TAKE 1 TABLET BY MOUTH TWICE DAILY NEEDED FOR DIZZINESS 28 tablet 07/19/20 23 Active FreeStyle lancets 1 each by Other route 2 times daily. Use bid, dx type 2 diabetes 60 each 03/11/20 24 Active hydroCHLOROthiaz olegario (HYDRODiuril) 25 MG tabletIndication s:Primary hypertension TAKE 1 TABLET BY MOUTH EVERY DAY 90 tablet 3 09/30/19 25 Active clopidogrel (Plavix) 75 MG tabletIndication s:Type 2 diabetes mellitus without complication, unspecified whether intermediate accountant insulin use ([facility]) TAKE 1 TABLET BY MOUTH EVERY DAY 90 tablet 3 10/28/19 25 Active famotidine (Pepcid) 20 MG tabletIndication s:Chronic GERD TAKE 1 TABLET BY MOUTH TWICE DAILY 60 tablet 6 12/23/19 25 Active Trulicity 1.5 MG/0.5ML solution auto-injectorInd ications:Type 2 diabetes mellitus without complication, without long-term current use of insulin (CMS/[facility]) INJECT ONE PEN (=1.5MG) SUBCUTANEOUSLY ONCE A WEEK DIRECTED 2 mL 6 01/16/20 25 Active acetaminophen (Tylenol 8 Hour) 650 MG ER tabletIndication s:Trochanteric bursitis of left hip,Low back pain radiating to left leg TAKE 1 TABLET BY MOUTH EVERY 8 HOURS NEEDED FOR MILD PAIN. DO NOT BREAK, CRUSH, DISSOLVE OR CHEW 30 tablet 3 02/13/20 25 Active atorvastatin (Lipitor) 40 MG tablet TAKE 1 TABLET BY MOUTH DAILY AT BEDTIME 90 tablet 3 02/25/20 25 Active glucose blood (FREESTYLE LITE) test stripIndications :Type 2 diabetes mellitus without complication, without long-term current use of insulin (CMS/HCC) USE DIRECTED TO TEST BLOOD SUGAR TWICE DAILY 50 strip 11 04/08/20 25 Active Active Problems Problem Noted Date Diagnosed [...] diabetes mellitus without complication Assessment & Plan (03/26/2025 2:49 PM EDT): Pt here for a f/u regarding her Diabetes controlled She is on a regimen of Glipizide ER 10 mg po daily and Trulicity 1.5 once a week Intolerant to Metformin due to Nausea and Vomiting Hgb A1c on 03/26/2025: 6.5 Eye exam 01/2022 Microalbumin 12/29/2022 0.6 Pt not on an FELY inhibitor/ARB Foot check today is risk of: 1 on the right foot and zero on the left Pt already on Plavix 75 mg po daily Plan:Stop Glipizide f/u 4 months, Pt advised to: adhere to diabetic diet check your blood sugars regularly check your feet on a daily basis. Assessment & Plan (12/23/2024 3:12 PM EDT): [...] incontinence of urine 12/19/2022 Assessment & Plan (03/26/2025 2:24 PM EDT): Under the care of Urology, s/p cystoscopy with botox injection Last seen by [facility] urology 02/26/2025 Assessment & Plan (12/23/2024 3:11 PM EDT): Under the care of Urology, s/p cystoscopy with botox injection Last seen by [facility] urology 10/30/2024 Assessment & Plan (06/05/2024 1:54 PM EDT): Under the care of Urology, s/p cystoscopy with botox injection [facility] Assessment & Plan (10/11/2023 3:11 PM EST): Under the care of Urology, s/p cystoscopy with botox injection Last seen by [facility] urology 09/19/2023 Assessment & Plan (06/26/2023 2:49 PM EST): Under the care of Urology, s/p cystoscopy with botox injection Has an appointment in August 2023 Assessment & Plan (12/19/2022 11:59 AM EDT): Under the care of Urology, s/p cystoscopy with botox injection Primary hypertension 12/19/2022 Assessment & Plan (03/26/2025 2:46 PM EDT): Patient here for a f/u BP controlled Most recent electrolytes, Bun and Creatinine done on: Lab Results Component Value Date NA 138 12/26/2024 NA 141 09/11/2024 K 4.4 12/26/2024 K 3.4 09/11/2024 CL 101 12/26/2024 CL 105 09/11/2024 BUN 10 12/26/2024 BUN 10 09/11/2024 CREATININE 0.64 12/26/2024 CREATININE 0.60 09/11/2024 within normal limits. She is on Hctz 25 mg po daily Plan: continue current regimen f/u 4 months patient advised to adhere to a low sodium diet, encouraged about medication compliance, counseled about weight loss. Assessment & Plan (06/05/2024 2:45 PM EDT): [...] numbness and weakness Pt requesting increase in SHAGGER hours I think she would benefit from [...] tells me she was never contacted by [facility]. Today my MA has contacted them to help facilitate this process for patient Vaccines: tdap: 09/16/2010 Zoster: 12/17/2014 Dexa scan: 09/29/2016 showed Osteopenia. Assessment & Plan (04/03/2023 2:57 PM EDT): Mammogram: 2022 Normal Pap Smear: NL: 02/14/2017 No need to continue given her age Colonoscopy: 11/10/2016 Pathology showed multiple tubular adenomas 5 year f/u recommended. She was [facility], She was supposed to have a colonoscopy in January but today tells me she was never contacted by [facility]. Today my MA has contacted them to [...] with posterior element hypertrophic degenerative changes and spmo-fd-xhebwzid spinal canal stenosis at L4-L5. Plan: referral to neurosurgeon Dr. shaffer 3. Disc bulging at L3-L4 and a small right subarticular disc protrusion at L2-L3 with posterior element hypertrophic degenerative changes and prominent dorsal fat pads without significant canal stenosis. 4. Severe left-sided and gwxejjwh-gg-fkegsa right-sided neural foraminal stenosis at L5-S1 with impingement on the exiting left L5 nerve root. Drqm-tx-ybaexdlq bilateral neural foraminal stenosis at L4-L5 and snsk-ju-gshzrdzv left-sided and minimal right-sided foraminal stenosis at L3-L4. 5. Lower thoracic degenerative changes, as discussed above. Pt was seen by [facility] 09/15/2024 who recommended to follow th [...] with posterior element hypertrophic degenerative changes and ojti-ys-dmpbshuw spinal canal stenosis at L4-L5. Plan: referral to neurosurgeon Dr. shaffer 3. Disc bulging at L3-L4 and a small right subarticular disc protrusion at L2-L3 with posterior element hypertrophic degenerative changes and prominent dorsal fat pads without significant canal stenosis. 4. Severe left-sided and medzpebp-ge-zcxrqf right-sided neural foraminal stenosis at L5-S1 with impingement on the exiting left L5 nerve root. Fjdi-dy-wbypzqrp bilateral neural foraminal stenosis at L4-L5 and cict-zo-bhqwedle left-sided and minimal right-sided foraminal stenosis at [...] of left hip 12/19/2022 Assessment & Plan (03/26/2025 2:53 PM EDT): Pt with persistent c/o left [...] 09/08/2024 had a steroid injection, recommended PT finished PT would like to go back to Ortho Assessment & Plan (12/23/2024 3:18 PM EDT): [...] not reveal any proximal vascular lesion. Left SHAGGER anomaly was noted. Of note She was [...] EGD 09/30/2018 showed multiple polyps according to corrugator supervisor of benign appearance. She completed her treatment [...] not reveal any proximal vascular lesion. Left SHAGGER anomaly was noted. Of note She was [...] EGD 09/30/2018 showed multiple polyps according to corrugator supervisor of benign appearance. She completed her treatment [...] showed Tubular adenomas Pt was referred to [facility] last year. Scheduled for January 2023 according to patient, but today tells me she was given the prep but was never contacted to schedule the procedure. I asked my MA to contact [facility] on her behalf. Their response was that they would book her for October of next year. Pt does not want to wait that long Pt had erpeat colonoscopy with Dr Dr. Smalls 11/2023 Assessment & Plan (10/11/2023 3:11 PM EST): She had a colonoscopy 10/2016 showed Tubular adenomas Pt was referred to [facility] last year. Scheduled for January 2023 according to patient, but today tells me she was given the prep but was never contacted to schedule the procedure. I asked my MA to contact [facility] on her behalf. Their response was that they would book her for October of next . Pt does not want to wait that long Pt scheduled for colonoscopy with Dr Dr. Smalls 11/2023 Assessment & Plan (04/03/2023 3:07 PM EDT): She had a colonoscopy 10/2016 showed Tubular adenomas Pt was referred to [facility] last year. Scheduled for January 2023 according to patient, but today tells me she was given the prep but was never contacted to schedule the procedure. I asked my MA to contact [facility] on her behalf. Their response was that they would book her for October next year. Pt does not want to wait that long Plan: Will refer to Dr. Smalls, pt agreeable Assessment & Plan (12/19/2022 2:27 PM EDT): She had a colonoscopy 10/2016 showed Tubular adenomas Pt was referred to [facility] last year. Scheduled for January 2023 according to patient Pure hyperglyceridemia 11/23/2016 Assessment & Plan (03/26/2025 2:46 PM EDT): Lab Results Component Value Date CHOL 120 09/11/2024 CHOL 114 11/05/2023 Lab Results Component Value Date HDL 42 09/11/2024 HDL 34 (L) 11/05/2023 No results found for: LDLCALC Lab Results Component Value Date TRIG 78 09/11/2024 TRIG 101 11/05/2023 TRIG 140 12/29/2022 Osteopenia 04/16/2012 Assessment & Plan (02/06/2023 2:42 [...] Encounters Date Type Department Care Team Description 05/04/2025 Telephone [facility] MEDICINE [address] [place] [address] Ryan Latif MD June04/08/2025 Refill [facility] MED[facility]INE [address] [place] [address] Ryan Latif MD Type 2 diabetes mellitus without complication, without long-term current use of insulin ([facility]) 03/26/2025 3:00 PM EDT Office Visit [facility] MEDICINE [address] [place] [address] Ryan Latif MD Type 2 diabetes mellitus without complication, without long-term current use of insulin (CMS/[facility]) (Primary Dx); Urge incontinence of urine; Primary hypertension; Pure hyperglyceridemia; Trochanteric bursitis of left hip 03/26/2025 Travel 03/12/2025 Telephone [facility] MEDICINE [address] [place] [address] Ryan Latif MD Med Refill 02/23/2025 Refill [facility] PEDS [address] [place] [address] Ryan Latif MD 02/12/2025 Refill [facility] MEDICINE [address] [place] [address] Ryan Latif MD Trochanteric bursitis of left hip; Low back pain radiating to left leg from Last 3 Months Immunizations Immunization Administration Dates Next Due Influenza High-dose Quadriva [...] Sign Reading Time Taken Comments Blood Pressure 130/82 03/26/2025 2:36 PM EDT Pulse 93 03/26/2025 2:36 PM EDT Temperature 36.3 C (97.3 F) 03/26/2025 2:36 PM EDT Respiratory Rate 20 03/26/2025 2:36 PM EDT Oxygen Saturation 96% 03/26/2025 2:36 PM EDT Inhaled Oxygen Concentration - - Weight 71.9 kg (158 lb 9.6 oz) 03/26/2025 2:36 P M EDT Height 157.5 cm (5' 2 ) 03/26/2025 2:36 PM EDT Body Mass Index 29.01 03/26/2025 2:36 PM EDT Plan of Treatment Upcoming Encounters Date Type Department Care Team (Late st Contact Info) Description 07/09/2025 3:00 PM EST Office Visit [facility] MEDICINE [address] [place] [address] Ryan Latif MD [address] [facility] [place] [address] Health Maintenance Due Date Last Done Comments [...] 12/30/2023 12/29/2022, 04/01/2021 Dental X-Ray: Bitewings 04/27/2024 04/26/20, 06/21/2021, 07/31/2019, Additional history exists COVID-19 Vaccine ( season) 2025 06/05/2024, 10/25/2023, 05/30/2022, Additional history exists Influenza Vaccine (#1) 2025 , 05/30/2022, 05/17/2021, Additional history exists RSV Patients and Patients Aged 60 years or older (1 - 1-dose 75+ series) 2025 Alcohol/Substance Use Screening 06/05/2025 06/05/2024 Depression Monitoring 06/25/2025 12/23/2024, 025 Lipid Panel 09/11/2025 09/11/2024, 10/18, 12/29/2022, Additional history exists Diabetes: Hemoglobin A1C 09/26/2025 025, 12/23/2024, 09/02/2024, Additional history exists SDOH Screening 12/23/2025 12/23/2024 Tobacco Screening 12/23/2025 [...] Diagnosis Comments POCT GLYCATED HEMOGLOBIN, TOTAL Routine 03/26/2025 2:46 PM EDT Type 2 diabetes mellitus without complication, without long-term current use of insulin (CMS/HCC) POCT GLUCOSE Routine 03/26/2025 2:43 PM EDT Type 2 diabetes mellitus without complication, without long-term current use of insulin (CMS/HCC) LIPID PANEL, STANDARD Routine 09/11/2024 10:53 AM EST Type 2 diabetes mellitus without complication, without long-term current use of insulin (CMS/HCC) HM COLONOSCOPY Routine 11/30/2023 INTRAORAL - COMPLETE SERIES OF RADIOGRAPHIC IMAGES Routine 04/26/2023 1:30 PM EDT PERIODIC ORAL EVALUATION - ESTABLISHED PATIENT Routine 04/26/2023 1:30 PM EDT ALBUMIN, RANDOM URINE W/O CREATININE Routine 12/29/2022 9:16 AM EDT Type 2 diabetes mellitus without complication, without long-term current use of insulin ([facility]) PROPHYLAXIS - ADULT Routine 06/21/2021 1 2:00 AM EDT from Last 3 Months or Most Recently Relevant to Health Maintenance Results * (ABNORMAL) POCT HGB A1C (03/26/2025 2:46 PM EDT) Hemoglobin A1C 6.5(A) 4.0 - 5.7 % QC Media Lot # [id number] Lot# Expiration Date Blood 03/26/2025 2:46 PM EDT Ryan Bhardwaj MD POINT OF CARE TEST EN TER/EDIT ORDERABLES Final Result * POCT Glucose (03/26/2025 2:43 PM EDT) Pathologist [facility] Glucose Blood, POC 112 60 - 200 mg/dL QC Media Lot # [id number] Lot# Expiration Date [id number] Blood Capillary blood specimen / Unknown 03/26/2025 2:43 PM EDT Ryan Bhardwaj MD POINT OF CARE TEST EN TER/EDIT ORDERABLES Final Result * Lipid Panel, Standard (09/11/2024 10:53 AM EST) Triglycerides 78 <150 mg/dL [facility] Comment:Desirable Triglyceri de: less than 150 mg/dLBorderline High Triglyceride 150-199 mg/dLHigh Triglyceride: 200-499 mg/dLVery High Triglyceride: greater than or equal to 5OO mg/dL Cholesterol 120 <200 mg/dL [facility] Comment:Desirable Cholestero l: less than 200 mg/dLBorderline High Cholesterol: 200-239 mg/dLHigh Cholesterol: greater than 239 mg/dL LDL Cholesterol Calculated 63 <100 mg/dL [facility] Comment:Desirable LDL: less than 100 mg/dLNear Optimal/Above Optimal LDL: 110- 129 mg/dLBorderline High LDL: 130-159 mg/dLHigh LDL: 160-189 mg/dLVery High LDL: greater than or equal to 190 mg/dL HDL Cholesterol 42 >40 mg/dL [facility] Comment:Desirable HDL: great er than 40 mg/dL Note: This HDL assay may give artificially low results in patients with liver disease. Blood Venous blood specimen / Unknown 09/11/2024 10:53 AM EST 09/11/2024 11:33 AM EST Ryan Bhardwaj MD LAB BLOOD ORDERABLES Final Result Performing Organization Address City/State/[facility] Co de Phone Number [facility] [address] [place] [phone] * Hm Colonoscopy (11/30/2023) Colonoscopy Normal Normal Historical Provider HEALTH MAINTENANCE Final Result * Albumin, Random Urine W/O Creatinine (12/29/2022 9:16 AM EDT) Albumin, Urine 0.6 See Note: mg/dL [facility] Comment: Reference Range: Reference Range Not established SRIKANTH [facility] Comment: The ADA defines abnormalities in albumin excretion as follows: Albuminuria Category Result (mcg/mg creatinine) Normal to Mildly increased <30 Moderately increased 30-299 Severely increased > OR = 300 The ADA recommends that [...] LAB URINE ORDERABLES Final Result [facility] [address], [place] [address] [facility] [address] [place] [address] from Last 3 Months or Most Recently Relevant to Health Maintenance Insurance [employer] [id number] [facility]O D-SNP) [place] [id number] [place] [id number] [facility] Care Teams C Engineer Relationship Specialty Start Date End Date Ryan Latif MD [address] [place] [phone] PCP - General Internal Medicine 05/20/14
--- OUTSIDE RECORDS SUMMARY | 2025-05-13 16:29 | XMS_ITS | Encounter Summary ---
Author Organization [employer] Address [address] [facility] [address] [place] [address] Care Team Providers Care Imager Name Role Phone Ryan Latif MD Primary Care Provide r Reason for Visit * Reason Comments Med Refill Encounter Details Date Type Department Care Team ([facility] Contact Info) Description 06/19/2023 Refill [facility] MEDICINE [address] [place], [place] [phone] Ryan Latif MD [address] [place], [place] [phone] Chronic GERD Social History Tobacco Use Types [...] Description 07/09/2025 3:00 PM EST Office Visit [facility] MEDICINE [address] [place] [address] Ryan Latif MD [address] [place] [address] documented as of this encounter Visit Diagnoses Diagnosis Chronic GERD documented in this encounter Additional Health Concerns Assessment Noted Time PHQ-9 Depression Total Score: 7 12/20/19 23 2:03 PM EDT documented as of this encounter Care Teams Imager Relationship Specialty Start Date End Date Ryan Latif MD [address] [place] [address] PCP - General Internal Medicine 05/20/14 documented as of this encounter
--- OUTSIDE RECORDS SUMMARY | 2025-05-13 16:29 | XMS_ITS | Encounter Summary ---
Author Organization [employer] Address [address] [facility] 7t [place] [address] Care Team Providers Care Supervisor Steel Division Name Role Phone Ryan Latif MD Primary Care Provide r Encounter Details Date Type Department Care Team (Latest Contact Info) Description 04/24/2019 Abstract [facility] CONVERSIONS Dental, Provider, DDS Social History [...] Description 07/09/2025 3:00 PM EST Office Visit [facility] MEDICINE [address] [place] [address] Ryan Latif MD [address] [place] [address] documented as of this encounter Visit Diagnoses Not on filedocumented in this encounter Care Teams Supervisor Steel Division Relationship Specialty Start Date End Date Ryan Latif MD [address] [place] [address] PCP - General Internal Medicine 05/20/14 documented as of this encounter
--- OUTSIDE RECORDS SUMMARY | 2025-05-13 16:29 | XMS_ITS | Encounter Summary ---
Author Organization [employer] Address [address] [facility] 7[address] [place] [address] Care Team Providers Care Tattooer Name Role Phone Ryan Latif MD Primary Care Provide r Encounter Details Date Type Department Care Team (Latest Contact Info) Description 06/21/2021 Abstract [facility] CONVERSIONS Dental, Provider, DDS Social History [...] Description 07/09/2025 3:00 PM EST Office Visit [facility] MEDICINE [address] [place] [address] Ryan Latif MD [address] [place] [address] documented as of this encounter Visit Diagnoses Not on filedocumented in this encounter Care Teams Tattooer Relationship Specialty Start Date End Date Ryan Latif MD [address] [place] [address] PCP - General Internal Medicine 05/20/14 documented as of this encounter
== END 2025-05-13 14:38 | disposition home or self-care (01) ==
LOC: HO.HOS 14:01
PROVIDERS: PCP Internal Medicine; Visit Provider Physician Assistant
DX: M70.62 Trochanteric bursitis, left hip (principal); M16.12 Unilateral primary osteoarthritis, left hip; M53.3 Sacrococcygeal disorders, not elsewhere classified; G89.29 Other chronic pain
CPT/HCPCS: 99214; G2211

== ENCOUNTER → 2025-05-13 14:00 | Outpatient (BNVA) | payer OTHER, SELFPAY | PROVIDERS: PCP Internal Medicine; Visit Provider Physician Assistant | DX: M70.62 Trochanteric bursitis, left hip (principal); M16.12 Unilateral primary osteoarthritis, left hip; M53.3 Sacrococcygeal disorders, not elsewhere classified; G89.29 Other chronic pain | CPT/HCPCS: 99212 ==

== ENCOUNTER 2025-05-29 15:03 | Outpatient (REF) | payer OTHER, SELFPAY | END 2025-05-29 15:04 | disposition home or self-care (01) | LOC: HO.MAMMO 15:03 | PROVIDERS: Visit Provider Internal Medicine | DX: Z12.31 Encounter for screening mammogram for malignant neoplasm of breast (principal) | CPT/HCPCS: 77063; 77067 ==

== ENCOUNTER → 2025-05-29 15:30 | Outpatient (BNV) | payer OTHER, SELFPAY | PROVIDERS: Visit Provider Radiology Body Imaging | DX: Z12.31 Encounter for screening mammogram for malignant neoplasm of breast (principal) | CPT/HCPCS: 77063; 77067 ==

== ENCOUNTER 2025-08-11 12:14 | Outpatient (REF) | payer OTHER, SELFPAY ==
--- NOTE | ~2025-08-11 | XR_ITS ---
EXAMINATION: XR ANKLE, left CLINICAL INFORMATION: ankle pain, s/p fall COMPARISON: None available. TECHNIQUE: AP, lateral, and mortise views lower extremity joint, ankle. FINDINGS: Ankle mortise is congruent. There is no widening of the syndesmosis. Talar dome is intact. There are small calcaneal enthesophyte(s). There is mild degenerative change in the inferior medial ankle joint. XR/XR ankle LT min 3V IMPRESSION: No acute bony abnormality. Small calcaneal spurs Mild degenerative change in the medial ankle joint. Electronically signed by: Kyler Carlin MD 08/11/2025 01:40 PM EST
--- NOTE | ~2025-08-11 | XR_ITS ---
EXAMINATION: XR KNEE, RIGHT CLINICAL INFORMATION: right knee pain s/p fall COMPARISON: None available. TECHNIQUE: Four views of the right knee. FINDINGS: Joint spaces are relatively preserved. There are marginal osteophytes along the medial joint line, notch side of the medial femoral condyle, intercondylar spines, and patella. There is no joint effusion. There is moderate multifocal atherosclerotic calcifications in the posterior thigh and proximal lower leg XR/XR knee RT 4V IMPRESSION: Mild osteoarthritis. No acute abnormality. Electronically signed by: Kyler Carlin MD 08/11/2025 01:42 PM EST
--- NOTE | ~2025-08-11 | XR_ITS ---
EXAMINATION: XR CERVICAL SPINE CLINICAL INFORMATION: neck pain, s/p fall 08/10/2025 COMPARISON: January 20, 2020 TECHNIQUE: AP, lateral, AP odontoid, bilateral oblique views of the cervical spine FINDINGS: There is no prevertebral soft tissue edema. Again seen is mild disc space narrowing and endplate osteophytes with ossification of the disc annulus is C6-7 with uncovertebral osteophytes narrowing the left neural foramen. XR/XR cervical spine 5V IMPRESSION: No acute bony abnormality. Stable degenerative changes at C6-7 Electronically signed by: Kyler Carlin MD 08/11/2025 01:50 PM EST
--- OUTSIDE RECORDS SUMMARY | 2025-08-11 11:20 | XMS_ITS | Encounter Summary ---
Author Organization [employer] Address [address] [facility] 7t [place] [address] Care Team Providers Care Diplomatic Interpreter/Translator Name Role Phone Ryan Latif MD Primary Care Provide r Reason for Referral * Imaging (STAT) - Pending Review Specialty Diagnoses / Procedures Referred By Contac t Referred To Contact Radiology Diagnoses Traumatic injury of head, initial encounter Procedures CT Head w/o Contrast Ryan Latif MD [address] [place] [phone] Phone: tel: fax: Referral ID Status Reason Start Date Expiration Date V isits Requested Visits Authorized [id number] Pending Review 08/11/2025 08/11/2026 1 1 Reason for Visit * Reason Comments Fall Encounter Details Date Type Department Care Team (Late st Contact Info) Description 08/11/2025 11:20 AM EST Office Visit [facility] [address] [place] [phone] Ryan Latif MD [address] [place] [address] [phone] Fall, initial encounter (Primary Dx); Neck pain; Dizziness; Traumatic injury of head, initial encounter; Acute left ankle pain; Acute pain of right knee; Cough in adult patient; Trochanteric bursitis of left hip; Low back pain radiating to left leg Social History Tobacco Use Types Packs/Day Years [...] Sign Reading Time Taken Comments Blood Pressure 123/77 08/11/2025 10:52 AM EST Pulse 80 08/11/2025 10:52 AM EST Temperature 36.6 C (97.8 F) 08/11/2025 10:52 AM EST Respiratory Rate 18 08/11/2025 10:52 AM EST Oxygen Saturation 97% 08/11/2025 10:52 AM EST Inhaled Oxygen Concentration - - Weight 70.3 kg (155 lb) 08/11/2025 10:52 AM EST Height - - Body Mass Index 28.35 07/09/2025 3:07 PM EST documented in this encounter Progress Notes * Ryan Bhardwaj MD - 08/11/2025 11:20 AM EST SUBJECTIVE Angelina Fang is a 75 y.o. female who presents for Fall. Angelina Fang, 75 years Patient is here after she: - Fell down wooden stairs yesterday afternoon, rolled down several steps - Hit head, neck, left ankle, and right knee during fall - Knee remained bent after fall - knee pain following injury - No loss of consciousness reported - Ice and diclofenac applied to affected areas Upper Respiratory Symptoms - Some cough - Denies vomiting - Sensation of feeling hot Fall Pertinent negatives include no abdominal pain, fever or headaches. Review of Systems Constitutional: Negative for fever. HENT: Negative for sore throat. Respiratory: Negative for cough and shortness of breath. Cardiovascular: Negative for chest pain. Gastrointestinal: Negative for abdominal pain. Neurological: Negative for headaches. Allergies[1] OBJECTIVE Vitals: 08/11/25 1052 BP: 123/77 BP Location: Right arm Patient Position: Sitting BP Cuff Size: Adult Pulse: 80 Resp: 18 Temp: 97.8 ??F (36.6 ??C) TempSrc: Temporal SpO2: 97% Weight: 155 lb (70.3 kg) Physical Exam Vitals reviewed. Constitutional: Appearance: Normal [...] is warm. Neurological: Mental Status: She is alert and oriented to person, place, and time. Mental status is at baseline. Cranial Nerves: Cranial nerves 2-12 are intact. Sensory: Sensation is intact. Motor: Motor function is intact. Coordination: Coordination is intact. Assessment/Plan Problem List Items Addressed This Visit Fall - Primary Patient here s/p fall at home. Pt reports feeling dizzy while trying to get out of her house, tripped and fell, rolled down a few steps, hit her right side of her head, neck, left ankle and right knee. Here with c/o headache, neck pain, left ankle and right knee. Exam: pt has a mild abrassion left forehead. As well as mild abrassions left ankle Neck she has full ROM, no tenderness to palpation. Eight knee there is tenderness to palpation, bu no redness, no swelling, no efussions Plan: Proceed with plain films c-spine, left ankle and right knee. CT head Clean mild abrasions to head and ankle, apply bacitracin to prevent infection Pt has safety guardrails at home, cane, walker Relevant Medications acetaminophen (Tylenol 8 Hour) 650 MG ER tablet Neck pain Pt with acute on chronic neck pain due to fall Exam: full ROM, no Plan: Plain films c-spine, Acetaminophen prn, exam unremarkable History: Pt with previous c/o chronic right-sided neck [...] at C5-C6 with mild right foraminal encroachment. Relevant Medications acetaminophen (Tylenol 8 Hour) 650 MG ER tablet Other Relevant Orders XR Cervical Spine 5 View Dizziness Relevant Medications meclizine (Antivert) 12.5 MG tablet Other Relevant Orders TSH with Reflex to Free T4 Lipid Panel, Standard Comprehensive Metabolic Panel CBC auto differential Head trauma Neuro exam within normal limits, no headache, only minor abrasions left forehead No LOC Plan: Head CT , Pt on plavix Relevant Orders CT Head w/o Contrast Acute left ankle pain Relevant Medications acetaminophen (Tylenol 8 Hour) 650 MG ER tablet Other Relevant Orders XR Ankle 3+ Views Left Acute pain of right knee S/p fall On exam full ROM Plan: plain films right knee, pain control Relevant Medications acetaminophen (Tylenol 8 Hour) 650 MG ER tablet Other Relevant Orders XR Knee 4+ Views Right Cough in adult patient Relevant Orders Influenza B (ID NOW Rapid Molecular) (Completed) Influenza A (ID NOW Rapid Molecular) (Completed) POCT Rapid COVID Ag (Completed) Trochanteric bursitis of left hip Relevant Medications acetaminophen (Tylenol 8 Hour) 650 MG ER tablet Low back pain radiating to left leg Relevant Medications acetaminophen (Tylenol 8 Hour) 650 MG ER tablet This note was drafted using Ambient (AI) technology. The patient/patient's guardian has been informed and has consented to the use of this technology: Yes Future Appointments Date Time Provider Department Center 10/20/2025 3:00 PM Ryan Bhardwaj MD MEDICINE [facility] [1] Allergies Allergen Reactions Lidocaine Other Pt c/o numbness that lasted for 2 days, pt tolerated Mepivacaine Aspirin Other reaction(s): skin irritation,stomach ache , ABDOMEN PAIN documented in this encounter Miscellaneous Notes * Assessment & Plan Note - Ryan Bhardwaj MD - 08/11/2025 1:10 PM EST Associated Problem(s): Head trauma Neuro exam within normal limits, no headache, only minor abrasions left forehead No LOC Plan: Head CT , Pt on plavix * Assessment & Plan Note - Ryan Bhardwaj MD - 08/11/2025 1:08 PM EST Associated Problem(s): Acute pain of right knee S/p fall On exam full ROM Plan: plain films right knee, pain control * Assessment & Plan Note - Ryan Bhardwaj MD - 08/11/2025 11:59 AM EST Associated Problem(s): Neck pain Pt with acute on chronic neck pain due to fall Exam: full ROM, no Plan: Plain films c-spine, Acetaminophen prn, exam unremarkable History: Pt with previous c/o chronic right-sided neck [...] at C5-C6 with mild right foraminal encroachment. * Assessment & Plan Note - Ryan Bhardwaj MD - 08/11/2025 11:58 AM EST Associated Problem(s): Fall Patient here s/p fall at home. Pt reports feeling dizzy while trying to get out of her house, tripped and fell, rolled down a few steps, hit her right side of her head, neck, left ankle and right knee. Here with c/o headache, neck pain, left ankle and right knee. Exam: pt has a mild abrassion left forehead. As well as mild abrassions left ankle Neck she has full ROM, no tenderness to palpation. Eight knee there is tenderness to palpation, bu no redness, no swelling, no efussions Plan: Proceed with plain films c-spine, left ankle and right knee. CT head Clean mild abrasions to head and ankle, apply bacitracin to prevent infection Pt has safety guardrails at home, cane, walker documented in this encounter Plan of Treatment Upcoming Encounters Date Type Department Care Team (Late st Contact Info) Description 10/20/2025 3:00 PM EST Office Visit [facility] [address] [place] [address] Ryan Latif MD [address] [place] [address] Scheduled Orders Name Type Priority Associated Diagnoses Orde r Schedule TSH with Reflex to Free T4 Lab Routine Dizziness Ordered: 08/11/2025 Lipid Panel, Standard Lab Routine Dizziness Ordered: 08/11/2025 Comprehensive Metabolic Panel Lab Routine Dizziness Ordered: 08/11/2025 CBC auto differential Lab Routine Dizziness Expected: 08/11/2025 (Approximate), Expires: 08/11/2026 XR Cervical Spine 5 View Imaging Routine Neck pain Ordered: 08/11/2025 CT Head w/o Contrast Imaging STAT Traumatic injury of head, initial encounter Ordered: 08/11/2025 XR Ankle 3+ Views Left Imaging Routine Acute left ankle pain Ordered: 08/11/2025 XR Knee 4+ Views Right Imaging Routine Acute pain of right knee Ordered: 08/11/2025 documented as of this encounter Goals Goal Patient Goal Type Associated Problems Recent Progress Patient-Stated? Author Help patients manage their type 2 diabetes Care Plan Help patients manage their type 2 diabetes No Peggy Pires Weekly blood pressure task Care Plan Weekly blood pressure task No Peggy Pires Help patients manage their type 2 diabetes Care Plan Help patients manage their type 2 diabetes No Peggy Pires Patient has chronic kidney disease Care Plan Patient has chronic kidney disease No Peggy Pires Weekly blood pressure task Care Plan Weekly blood pressure task No Peggy Pires Patient has chronic kidney disease Care Plan Patient has chronic kidney disease No Peggy Pires Weekly blood pressure task Care Plan Weekly blood pressure task No Jaky Wilhelm MA Weekly blood pressure task Care Plan Weekly blood pressure task No Jaky Wilhelm [place] Patient has chronic kidney disease Care Plan Patient has chronic kidney disease No Jaky Wilhelm MA Patient has chronic kidney disease Care Plan Patient has chronic kidney disease No Jaky Wilhelm MA Weekly blood pressure task Care Plan Weekly blood pressure task No Ryan Latif MD Weekly blood pressure task Care Plan Weekly blood pressure task No Ryan Latif MD Patient has chronic kidney disease Care Plan Patient has chronic kidney disease No Ryan Latif MD Patient has chronic kidney disease Care Plan Patient has chronic kidney disease No Ryan Latif MD Weekly blood pressure task Care Plan Weekly blood pressure task No Jaky Wilhelm MA Weekly blood pressure task Care Plan Weekly blood pressure task No Jaky Wilhelm MA Patient has chronic kidney disease Care Plan Patient has chronic kidney disease No Jaky Wilhelm [place] Patient has chronic kidney disease Care Plan Patient has chronic kidney disease No Jaky Wilhelm MA Weekly blood pressure task Care Plan Weekly blood pressure task No Jaky Wilhelm MA Weekly blood pressure task Care Plan Weekly blood pressure task No Jaky Wilhelm MA Patient has chronic kidney disease Care Plan Patient has chronic kidney disease No Jaky Wilhelm MA Patient has chronic kidney disease Care Plan Patient has chronic kidney disease No Jaky Wilhelm MA Weekly blood pressure task Care Plan Weekly blood pressure task No Bart Carson MA Weekly blood pressure task Care Plan Weekly blood pressure task No Tomas AguilarBart valdez MA Patient has chronic kidney disease Care Plan Patient has chronic kidney disease No Bart Carson MA Patient has chronic kidney disease Care Plan Patient has chronic kidney disease No Bart Carson MA documented as of this encounter Procedures Procedure Name Priority Date/Time Associated Diagnosis Comments POCT INFLUENZA B (ID NOW RAPID MOLECULAR) Routine 08/11/2025 12:37 PM EST Cough in adult patient POCT INFLUENZA A (ID NOW RAPID MOLECULAR) Routine 08/11/2025 12:37 PM EST Cough in adult patient POCT RAPID COVID ANTIGEN Routine 08/11/2025 12:37 PM EST Cough in adult patient documented in this encounter Results * POCT Rapid COVID Ag (08/11/2025 12:37 PM EST) Pathologist [facility] Rapid COVID Ag Negative Swab 08/11/2025 12:3 7 PM EST Ryan Bhardwaj MD POINT OF CARE TEST EN TER/EDIT ORDERABLES Final Result * Influenza A (ID NOW Rapid Molecular) (08/11/2025 12:37 PM EST) [facility] Influenza A Negative Negative, Indeterminate [facility] Swab 08/11/2025 12:3 7 PM EST Ryan Bhardwaj MD POINT OF CARE TEST EN TER/EDIT ORDERABLES Final Result [facility] [address] [place] [address] [phone] * Influenza B (ID NOW Rapid Molecular) (08/11/2025 12:37 PM EST) [facility] Influenza B Negative Negative, Indeterminate [facility] Swab 08/11/2025 12:3 7 PM EST us Ryan Bhardwaj MD POINT OF CARE TEST EN TER/EDIT ORDERABLES Final Result [facility] [address] [place] [phone] documented in this encounter Visit Diagnoses Diagnosis Fall, initial encounter- Primary Neck pain Cervicalgia Dizziness Dizziness and giddiness Traumatic injury of head, initial encounter Acute left ankle pain Acute pain of right knee Cough in adult patient Trochanteric bursitis of left hip Low back pain radiating to left leg Lumbago documented in this encounter Additional Health Concerns Active Problems Noted Date Diagnosed Date Help patients manage their type 2 diabetes 07/01 Weekly blood pressure task 07/01/2025 Help patients manage their type 2 diabetes 07/01 Patient has chronic kidney disease 07/01/2025 Weekly blood pressure task 07/01/2025 Patient has chronic kidney disease 07/01/2025 Weekly blood pressure task 07/08/2025 Weekly blood pressure task 07/08/2025 Patient has chronic kidney disease 07/08/2025 Patient has chronic kidney disease 07/08/2025 Weekly blood pressure task 07/09/2025 Weekly blood pressure task 07/09/2025 Patient has chronic kidney disease 07/09/2025 Patient has chronic kidney disease 07/09/2025 Weekly blood pressure task 08/06/2025 Weekly blood pressure task 08/06/2025 Patient has chronic kidney disease 08/06/2025 Patient has chronic kidney disease 08/06/2025 Weekly blood pressure task 08/06/2025 Weekly blood pressure task 08/06/2025 Patient has chronic kidney disease 08/06/2025 Patient has chronic kidney disease 08/06/2025 Weekly blood pressure task 08/11/2025 Weekly blood pressure task 08/11/2025 Patient has chronic kidney disease 08/11/2025 Patient has chronic kidney disease 08/11/2025 Assessment Noted Time PHQ-9 Depression Total Score: 12 025 2:58 PM EDT documented as of this encounter Care Teams Diplomatic Interpreter/Translator Relationship Specialty Start Date End Date Ryan Latif MD [address] [place] [phone] PCP - General Internal Medicine 05/20/14 documented as of this encounter
--- OUTSIDE RECORDS SUMMARY | 2025-08-11 13:24 | XMS_ITS | Patient Health Record ---
Author Organization [facility] Address [address] [place] [id number] Care Team Providers Care Ham Passer Name Role Phone Yoshi Bhardwaj MD, Ryan Primary Care Provide Tolu Arnold [phone] Allergies Allergen (clinical drug ingredient) Drug/Non Drug Allergy documented on EMR Reaction Allergy Type Onset Date Status aspirin Aspirin upset stomach Drug Allergy Act troy Reason For Referral No Information Medications Medication SIG (Take, Route, Frequency, Duration) Notes Start Date End Date Status Dulcolax (colon prep) 5 MG Tablet Delayed Release take at 3:00 p.m and 7:00p.m. Orally two tablets twice a day for one day; Duration: 1 day 08/28/2023 Active MiraLax (colon prep) 17 GM/SCOOP Powder mixed with Gatorade or Crystal Light Orally begin at 5:00 p.m. the day before the procedure; Duration: 1 day 08/28/2023 Active MiraLax (colon prep) 17 GM/SCOOP Powder 1 238 Gm bottle mixed with Gatorade or Crystal Light Orally begin at 5:00 p.m. the day before the procedure; Duration: 1 day 11/19/2023 Active Meclizine HCl 12.5 MG Tablet TAKE 1 TABLET BY MOUTH TWICE DAILY NEEDED FOR DIZZINESS Oral; Duration: 14 R42,Unavailabl e Active Dulcolax (colon prep) 5 MG Tablet Delayed Release take at 3:00 p.m and 7:00p.m. Orally two tablets twice a day for one day; Duration: 1 day 11/19/2023 Active Atorvastatin Calcium 40 MG Tablet TAKE 1 TABLET BY MOUTH DAILY AT BEDTIME Oral; Duration: 90 Active Trulicity 0.75 MG/0.5ML Solution Pen-injector INJECT ONE PEN (=0.75MG) SUBCUTANEOUSLY ONCE A WEEK DIRECTED Subcutaneous; Duration: 28 ,Unavailab le Active glipiZIDE ER 10 MG Tablet Extended Release 24 Hour Oral; Duration: 90 Active Clopidogrel Bisulfate 75 MG Tablet Oral; Duration: 90 Active Social History Tobacco Use: Social History Observation Description Date Details (start date - stop date) Never Smoker NA - NA Social History Drugs/Alcohol: Social Info Question Answer Notes Alcohol Screen Did you have a drink containing alcohol in the past year? No Points 0 Interpretation Negative Tobacco Use: Social Info Question Answer Notes Tobacco Use/Smoking Patient is a nonsmoker Additional Details Category Social Info Options Details Miscellaneous: Marital status: Occupation: retired Problems Problem Type SNOMED Code ICD Code Onset Dates Problem Status W/U Status Risk Notes Problem Colon cancer screening (051927645) Colon cancer screening (Z12.11) Active confirmed Problem History of adenomatous polyp of colon (199032483) History of adenomatous polyp of colon (Z86.010) Active confirmed Problem Diverticular disease of colon (948185753) Diverticulosis of large intestine without perforation or abscess without bleeding (K57.30) Active confirmed Problem Preprocedural examination (392411502710136) Preprocedural examination (Z01.818) Active confirmed Problem Family History of Cancer of Colon (Situation) (224616339) Family history of colon cancer (Z80.0) Active confirmed Problem Long-term current use of anticoagulant (693853558) Anticoagulant long-term use (Z79.01) Active confirmed Plan Of Treatment Pending Test Test Name Order Date Pathology 11/30/2023 Future Test Test Name Order Date COLONOSCOPY 08/28/2023 Insurance Providers Payer Name Payer Address Payer Phone Subscriber Number Group Number Insured Name Patient Relationship to Insured Coverage Start Date Coverage End Date [facility] [address] Attn Claims [place] [id number] HERB WATTS Self - patient is the insured Medical (General) History Medical History History ICD Code NIDDM 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
--- OUTSIDE RECORDS SUMMARY | 2025-08-11 13:24 | XMS_ITS | Clinical Summary ---
Author Organization [address] [facility] Address [address] [place] [address] Phone Care Team Providers Care Severity Of Illness Coordinator Name Role Phone Ryan Randolph MD Primary [...] Health Maintenance Due Date Last Done Comments Colorectal Cancer Screening: Colonoscopy 1950 Diabetes: Annual Foot Exam 1960 Diabetes: Annual Retina Eye Exam 1960 Pneumococcal Vaccine: 50+ Years (2 of 2 - PPSV23, PCV20, or PCV21) 01/18/2017 11/23/2016 Depression Screening 08/20/2024 Diabetes: Annual Urine Albumin-Creatinine Ratio (uACR) 09/25/2024 12/29/2022 Falls Risk Assessment 09/25/2024 Hepatitis C Screening 09/25/2024 Medicare Annual Wellness Visit 09/25/2024 Osteoporosis Screening (Bone Density Screening) 09/25/2024 Social Influencers of Health Screening 09/25/2024 Diabetes: Blood Sugar Control Test (HGBA1C) 03/02/2025 09/02/2024 COVID-19 Vaccine ( season) 2025 06/05/2024, 10/25/2023, 05/30/2022, Additional history exists Influenza Vaccine (#1) 2025 4, 05/30/2022, 05/17/2021, Additional history exists RSV Immunization [...] patient's age to complete this topic Insurance [facility] MEDIC[facility] Member Subscriber Plan / Payer (Ef fective 2015-Present) Name:Angelina Bhardwaj Relation to Subscriber:Self Name:Angelina Prescott Payer ID:[id number] Group ID:[id number] Type:Not on file Address: [facility] [place] [id number] Care Teams Severity Of Illness Coordinator Relationship Specialty Start Date End Date Ryan Randolph MD [address] [place] [address] [phone] PCP - General Internal Medicine 09/25/24
--- OUTSIDE RECORDS SUMMARY | 2025-08-11 13:24 | XMS_ITS | Encounter Summary ---
Author Organization [employer] Address [address] [facility] 7[address] [place] [address] Care Team Providers Care Welt Beater Name Role Phone Ryan Latif MD Primary Care Provide r Reason for Visit * Reason Onset Date Comments OCTOBER RECALL 08/06/2025 Encounter Details Date Type Department Care Team ([facility] Contact Info) Description 08/06/2025 Telephone [facility] [address] [place], [place] [phone] Ryan Latif MD [address] [place], [place] [phone] OCTOBER RECALL Social History Tobacco Use Types Packs/Day Years [...] housing situation today? I have albinojay campbell 01/10/[address] you [...] encounter Miscellaneous Notes * Telephone Encounter - Jaky Wilhelm MA - 08/06/2025 1:39 PM EST Telephone call to patient to schedule the following recall: Visit type: Office visit Appointment notes: DM Patient agree to appointment on 10/20/2025 at 3:00 PM with Yoshi. documented in this encounter Plan of Treatment Upcoming Encounters Date Type Department Care Team (Late st Contact Info) Description 10/20/2025 3:00 PM EST Office Visit [facility] [address] [place] [address] Ryan Latif MD [address] [place] [address] documented as of this encounter Goals Goal [...] Care Plan Patient has chronic kidney disease Peggy Fowler Weekly blood pressure task Care Plan Weekly [...] chronic kidney disease No Jaky Wilhelm MA documented as of this encounter Visit Diagnoses Not on filedocumented in this encounter Additional Health Concerns Active [...] 08/06/2025 Patient has chronic kidney disease 08/06/2025 Assessment Noted Time PHQ-9 Depression Total Score: 12 025 2:58 PM EDT documented as of this encounter Care Teams Welt Beater Relationship Specialty Start Date End Date Ryan Latif MD [address] [place] [address] PCP - General Internal Medicine 05/20/14 documented as of this encounter
--- OUTSIDE RECORDS SUMMARY | 2025-08-11 13:24 | XMS_ITS | Clinical Summary ---
Author Organization [employer] Address [address] [facility] [address] [place] [address] Care Team Providers Care Demolition Expert Name Role Phone Ryan Latif MD Primary Care Provide r Allergies Active Allergy Reactions Criticality Noted Date Comments Aspirin 03/07/2012 Other reaction(s): skin irritation,stomach ache , ABDOMEN PAIN Lidocaine Other Medium 06/05/2024 Pt c/o numbness that lasted for 2 days, pt tolerated Mepivacaine Medications Continuous Blood Gluc Media Consultant (FreeStyle Nerissa 2 Afton) deviceIndicatio ns:Type 2 diabetes mellitus without complication, without long-term current use of insulin (HCC) 1 applicator with breakfast, with lunch, and with evening meal. 1 each 023 Active Continuous Blood Gluc Sensor (FreeStyle Nerissa 2 Sensor) miscIndications :Type 2 diabetes mellitus without complication, without long-term current use of insulin (HCC) 1 applicator before breakfast, before lunch, and before evening meal. 2 each 023 Active FreeStyle lancets 1 each by Other route 2 times daily. 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 TAKE 1 TABLET BY MOUTH EVERY DAY 90 tablet 3 025 Active famotidine (Pepcid) 20 MG tabletIndicatio ns:Chronic GERD TAKE 1 TABLET BY MOUTH TWICE DAILY 60 tablet 6 07/21/20 25 4:03 PM EST 025 Active atorvastatin (Lipitor) 40 MG tablet TAKE 1 TABLET BY MOUTH DAILY AT BEDTIME 90 tablet 3 025 Active glucose blood (FREESTYLE LITE) test stripIndication s:Type 2 diabetes mellitus without complication, without long-term current use of insulin (HCC) USE DIRECTED TO TEST BLOOD SUGAR TWICE DAILY 50 strip 11 07/03/20 25 11:19 AM EST 025 Active Trulicity 1.5 MG/0.5ML solution auto-injectorIn dications:Type 2 diabetes mellitus without complication, without long-term current use of insulin ([facility]) INJECT ONE PEN (=1.5MG) SUBCUTANEOUSLY ONCE A WEEK DIRECTED 2 mL 6 08/06/20 25 8:50 AM EST 025 Active meclizine (Antivert) 12.5 MG tabletIndicatio ns:Dizziness Take 1 tablet (12.5 mg) by mouth if needed in the morning, at noon, and at bedtime for dizziness. 28 tablet 08/11/20 25 1:20 PM EST 025 Active acetaminophen (Tylenol 8 Hour) 650 MG ER tabletIndicatio ns:Trochanteric bursitis of left hip,Low back pain radiating to left leg Take 1 tablet (650 mg) by mouth every 8 (eight) hours if needed for mild pain. Do not crush, chew, or split. 30 tablet 3 08/11/20 25 1:19 PM EST 025 Active meclizine (Antivert) 12.5 MG tabletIndicatio ns:Dizziness and giddiness TAKE 1 TABLET BY MOUTH TWICE DAILY NEEDED FOR DIZZINESS 28 tablet 023 2024 Discontinued(R eorder (will not trigger notification to Pharmacy)) Trulicity 1.5 MG/0.5ML solution auto-injectorIn dications:Type 2 diabetes mellitus without complication, without long-term current use of insulin ([facility]) INJECT ONE PEN (=1.5MG) SUBCUTANEOUSLY ONCE A WEEK DIRECTED 2 mL 6 07/06/20 25 11:12 AM EST 025 2024 Discontinued acetaminophen (Tylenol 8 Hour) 650 MG ER tabletIndicatio ns:Trochanteric bursitis of left hip,Low back pain radiating to left leg TAKE 1 TABLET BY MOUTH EVERY 8 HOURS NEEDED FOR MILD PAIN. DO NOT BREAK, CRUSH, DISSOLVE OR CHEW 30 tablet 3 025 2024 Discontinued(R eorder (will not trigger notification to Pharmacy)) Active Problems Problem Noted Date Diagnosed Date Fall 08/11/2025 Assessment & Plan (08/11/2025 11:58 AM EST): Patient here s/p fall at home. Pt [...] has safety guardrails at home, cane, walker Dizziness 08/11/2025 Head trauma 08/11/2025 Assessment & Plan (08/11/2025 1:10 PM EST): Neuro exam within normal limits, no headache, only minor abrasions left forehead No LOC Plan: Head CT , Pt on plavix Acute left ankle pain 08/11/2025 Acute pain of right knee 08/11/2025 Assessment & Plan (08/11/2025 1:08 PM EST): S/p fall On exam full ROM Plan: plain films right knee, pain control Cough in adult patient 08/11/2025 Overweight (BMI 25.0-29.9) 09/02/2024 Assessment & Plan [...] disease 04/26/2023 Type 2 diabetes mellitus without complications 0 12/19/2022 Assessment & Plan (07/09/2025 3:12 PM EST): Pt here for a f/u regarding her Diabetes controlled She is on a regimen of Trulicity 1.5 once a week Intolerant to Metformin due to Nausea and Vomiting Hgb A1c on 07/09/2025: 6.8 from 6.5 Eye exam 01/2022 Microalbumin 12/29/2022 0.6 Pt not on an FELY inhibitor/ARB Foot check today is risk of: 1 on the right foot and zero on the left Pt already on Plavix 75 mg po daily Plan: f/u 4 months, Pt advised to: adhere to diabetic diet check your blood sugars regularly check your feet on a daily basis. Assessment & Plan (03/26/2025 2:49 PM EDT): [...] cystoscopy with botox injection Last seen by [facility] urology 02/26/2025 Assessment & Plan (12/23/2024 3:11 PM EDT): Under the care of Urology, s/p cystoscopy with botox injection [facility]2024 Assessment & Plan (06/05/2024 1:54 PM EDT): Under the care of Urology, s/p cystoscopy with botox injection Last [facility] by [facility] 03/24/2024 Assessment & Plan (10/11/2023 3:11 PM EST): Under the care of Urology, s/p cystoscopy with botox injection Last [facility] 09/19/2023 Assessment & Plan (06/26/2023 2:49 PM EST): Under the care of Urology, s/p cystoscopy with botox injection Has an appointment in August 2023 Assessment & Plan (12/19/2022 11:59 AM EDT): Under the care of Urology, s/p cystoscopy with botox injection Primary hypertension 12/19/2022 Assessment & Plan (07/09/2025 2:59 PM EST): Patient here for a f/u BP controlled [...] counseled about weight loss. 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 Assessment & Plan (12/19/2022 12:09 PM EDT): [...] at C5-C6 with mild right foraminal encroachment. [facility] care 12/19/2022 Assessment & Plan (07/09/2025 3:00 PM EST): Mammogram: 05/29/2025 Normal Pap Smear: NL: 02/14/2017 No need to continue given her age Colonoscopy: 11/10/2016 Pathology showed multiple tubular adenomas 5 year f/u recommended. Repeat 11/30/2023 Dr smalls showed a polyp 5 year follow up recommended Dexa scan: 09/29/2016 showed Osteopenia. Assessment & Plan (09/02/2024 2:31 PM EST): [...] year f/u recommended. She was referred to [facility], She was supposed to have a colonoscopy in January but today tells me she was never contacted by [facility]. Today my MA has contacted them to help facilitate this process for patient Vaccines: tdap: 09/16/2010 Zoster: 12/17/2014 Dexa scan: 09/29/2016 showed Osteopenia. Assessment & Plan (04/03/2023 2:57 PM EDT): Mammogram: 2022 Normal Pap Smear: NL: 02/14/2017 No need to continue given her age Colonoscopy: 11/10/2016 Pathology showed multiple tubular adenomas 5 year f/u recommended. She was referred to [facility], She was supposed to have a colonoscopy in January but today tells me she was never contacted by [facility]. Today my MA has contacted them [...] normal Patient finished PT. Pt seen at [facility] received steroid injections with no good [...] with posterior element hypertrophic degenerative changes and tgnu-cd-rzostanx spinal canal stenosis at L4-L5. Plan: referral to neurosurgeon Dr. shaffer 3. Disc bulging at L3-L4 and a small right subarticular disc protrusion at L2-L3 with posterior element hypertrophic degenerative changes and prominent dorsal fat pads without significant canal stenosis. 4. Severe left-sided and umrpnppc-pj-dssaqv right-sided neural foraminal stenosis at L5-S1 with impingement on the exiting left L5 nerve root. Jqpc-cj-pbowzsht bilateral neural foraminal stenosis at L4-L5 and cbxh-mv-gxcnarvc left-sided and minimal right-sided foraminal stenosis at L3-L4. 5. Lower thoracic degenerative changes, as discussed above. Pt was seen by [facility] 09/15/2024 who recommended to follow [...] normal Patient finished PT. Pt seen at [facility] received steroid injections with no good [...] with posterior element hypertrophic degenerative changes and xxfe-ah-tccvbccs spinal canal stenosis at L4-L5. Plan: referral to neurosurgeon Dr. shaffer 3. Disc bulging at L3-L4 and a small right subarticular disc protrusion at L2-L3 with posterior element hypertrophic degenerative changes and prominent dorsal fat pads without significant canal stenosis. 4. Severe left-sided and bfdlahac-ub-uowlpt right-sided neural foraminal stenosis at L5-S1 with impingement on the exiting left L5 nerve root. Cwgs-ux-vnpwjngz bilateral neural foraminal stenosis at L4-L5 and hxkr-gm-jpotimkb left-sided and minimal right-sided foraminal stenosis at [...] normal Patient finished PT. Pt seen at [facility] received steroid injections with no good [...] finished PT. Pt will be referred to [facility] Assessment & Plan (02/06/2023 2:44 PM [...] of left hip 12/19/2022 Assessment & Plan (07/09/2025 3:31 PM EST): Pt with persistent c/o left sided low back pain with radiation to left hip Plain films of hip normal. LS spine showed: Spondylosis of lumbar sacral spine with degenerative disc changes most prominent at the L5-S1 level. No significant change compared with the lumbar sacral spine dating back to 2009. No acute abnormality Pt here for a follow up Seen by ortho 05/07/2025 recommended to have a steroid injection under fluoroscopy and referred to Dr. Courtney Oropeza (Truss Designer) She has an appointment in August MRI of Left hip 08/05/2024 showed: 1. Nondisplaced undersurface tear of the anterosuperior [...] disc disease and facet arthropathy at L5-S1. Previously she had been under the care of [facility] seen in 02/2024 received steroid injections. With no good results Assessment & Plan (03/26/2025 2:53 PM EDT): [...] not reveal any proximal vascular lesion. Left WOOL MIXER anomaly was noted. Of note She was [...] EGD 09/30/2018 showed multiple polyps according to hosiery mender of benign appearance. She completed her treatment [...] not reveal any proximal vascular lesion. Left WOOL MIXER anomaly was noted. Of note She was [...] EGD 09/30/2018 showed multiple polyps according to hosiery mender of benign appearance. She completed her treatment [...] showed Tubular adenomas Pt was referred to [facility] last year. Scheduled for January 2023 according to patient, but today tells me she was given the prep but was never contacted to schedule the procedure. I asked my MA to contact [facility] on her behalf. Their response was that they would book her for October of next year. Pt does not want to wait that long Pt had erpeat colonoscopy with Dr Dr. Smalls 11/2023 Assessment & Plan (10/11/2023 3:11 PM EST): She had a colonoscopy 10/2016 showed Tubular adenomas Pt was referred to [facility] last year. Scheduled for January 2023 according to patient, but today tells me she was given the prep but was never contacted to schedule the procedure. I asked my MA to contact [facility] on her behalf. Their response was that they would book her for October of next year. Pt does not want to wait that long Pt scheduled for colonoscopy with Dr Dr. Smalls 11/2023 Assessment & Plan (04/03/2023 3:07 PM EDT): She had a colonoscopy 10/2016 showed Tubular adenomas Pt was referred to [facility] last year. Scheduled for January 2023 according to patient, but today tells me she was given the prep but was never contacted to schedule the procedure. I asked my MA to contact [facility] on her behalf. Their response was that they would book her for October next year. Pt does not want to wait that long Plan: Will refer to Dr. Smalls, pt agreeable Assessment & Plan (12/19/2022 2:27 PM EDT): She had a colonoscopy 10/2016 showed Tubular adenomas Pt was referred to [facility] last year. Scheduled for January 2023 [...] Encounters Date Type Department Care Team Description 08/11/2025 11:20 AM EST Office Visit [facility] [address] [place] [address] Ryan Latif MD Fall, initial encounter (Primary Dx); Neck pain; Dizziness; Traumatic injury of head, initial encounter; Acute left ankle pain; Acute pain of right knee; Cough in adult patient; Trochanteric bursitis of left hip; Low back pain radiating to left leg 08/11/2025 Travel 08/06/2025 Telephone [facility] [address] [place] [phone] Ryan Latif MD October08/04/2025 Refill [facility] [address] [place] [phone] Ryan Latif MD Type 2 diabetes mellitus without complication, without long-term current use of insulin (HCC) 07/09/2025 3:00 PM EST Office Visit [facility] [address] [place] [phone] Ryan Latif MD Type 2 diabetes mellitus without complication, without long-term current use of insulin (HCC) (Primary Dx); Trochanteric bursitis of left hip; Primary hypertension; Preventative health care; Encounter for immunization 07/09/2025 Travel 07/08/2025 Telephone [facility] [address] [place] [phone] Ryan Latif MD CHART PREP 07/01/2025 Patient Outreach [facility] [address] [place] [phone] Ryan Latif MD Pre-visit Planning ([facility] screening was completed on 12/23/2024) 05/29/2025 Orders Only [facility] [address] [place] [address] Ryan Latif MD from Last 3 Months Immunizations Immunization Administration Dates Next Due Influenza High-dose Quadriva lent Preservative Free 05/30/2022,05/17/2021 Influenza Injectable Quadriv alant Preservative Free IIV4 MDCK 07/31/2019 Influenza injectable quadriv alent IIV4 with preservative 07/04/2016 Influenza injectable quadriv alent preservative free 05/31/2017,05/24/2015 Influenza, High Dose Seasona l, Preservative Free 07/09/2025,06/05/2024,05/14/2018 Influenza, Split (incl. keegan fied surface antigen) 06/25/2013,04/16/2012 Moderna Covid-19 Vaccine 12+ 06/27/2021,11/18/19 21,10/20/2020 Pfizer Covid-19 Vaccine 12+ 06/05/2024, Pfizer Covid-19 Vaccine 12+ Bivalent 05/30/2022 Pneumococcal Conjugate PCV 13 11/23/2016 Pneumococcal Conjugate PCV 20 07/09/2025 Tdap 04/20/2022,09/16/2010 Zoster, Recombinant 11/01/2022,08/30/2022 Zoster, live [...] (155 lb) 08/11/2025 10:52 AM EST Height 157.5 cm (5' 2 ) 07/09/2025 3:07 PM EST Body Mass Index 28.35 07/09/2025 3:07 PM EST Plan of Treatment Upcoming Encounters Date Type Department Care Team (Late st Contact Info) Description 10/20/2025 3:00 PM EST Office Visit [facility] [address] [place] [address] Ryan Latif MD [address] [place], [place] [phone] Health Maintenance Due Date Last Done Comments CT Colonography 1950 FIT DNA/Cologuard 1950 FIT 1950 FOBT 1950 Sigmoidoscopy 1950 Diabetes: Foot Exam 1960 Eye Exam 1960 Hepatitis C Screening 1968 Dental Prophylaxis 12/20/2021 06/21/2021, 0 10/27/2019, 04/24/2019, Additional history exists Dental Oral Exam 10/26/2023 04/26/2023, 09/2020, 07/31/2019, Additional history exists Diabetes: Urine Protein Screening 12/30/2023 12/29/2022, 04/01/2021 Dental X-Ray: Bitewings 04/27/2024 04/26/20, 06/21/2021, 07/31/2019, Additional history exists COVID-19 Vaccine ( season) 2025 06/05/2024, 10/25/2023, 05/30/2022, Additional history exists RSV Patients and Patients Aged 60 years or older (1 - 1-dose 75+ series) 2025 Depression Monitoring 06/25/2025 12/23/2024, 025 Lipid Panel 09/11/2025 09/11/2024, 10/18, 12/29/2022, Additional history exists SDOH Screening 12/23/2025 12/23/2024 Diabetes: Hemoglobin A1C 01/06/2026 025, 03/26/2025, 12/23/2024, Additional history exists Dental X-Ray: Full Mouth 04/27/2026 023, 06/21/2021, 01/03/2017 Alcohol/Substance Use Screening 07/09/2026 07/09/2025 Tobacco Screening 08/11/2026 08/11/2025 Colonoscopy 11/29/2028 11/30/2023, 11/10/2016 Colorectal Cancer Screening 11/29/2028 DTaP/Tdap/Td Vaccines (3 - Td or Tdap) 04/20/2032 04/20/2022, 09/16/2010 Zoster Vaccines Completed 11/01/2022, 08/20, 12/17/2014 Influenza Vaccine Completed 07/09/2025, , 05/30/2022, Additional history exists Pneumococcal Vaccine: 50+ Years Completed 07/09/2025, 11/23/2016 HIB Vaccines Aged Out No longer eligi [...] on patient's age to complete this topic Goals Goal Patient Goal Type Associated Problems [...] has chronic kidney disease No Jaky [place] Patient has chronic kidney disease Care Plan Patient has chronic kidney disease No Jaky Wilhelm [place] Weekly blood pressure task Care Plan Weekly blood pressure task No Jaky Wilhelm [place] Weekly blood pressure task Care Plan Weekly blood pressure task No Jaky Wilhelm [place] Patient has chronic kidney disease Care Plan Patient has chronic kidney disease No Jaky Wilhelm [place] Patient has chronic kidney disease Care Plan Patient has chronic kidney disease No Jaky Wilhelm [place] Weekly blood pressure task Care Plan Weekly blood pressure task No Akila Carsonsmo [place] Weekly blood pressure task Care Plan Weekly blood pressure task No Akila Carsonsmo [place] Patient has chronic kidney disease Care Plan Patient has chronic kidney disease No Thom Aguilar [place] Patient has chronic kidney disease Care Plan Patient has chronic kidney disease No Akila Carsonsmnatividad [place] Procedures Procedure Name Priority Date/Time Associated Diagnosis Comments POCT RAPID COVID ANTIGEN Routine 08/11/2025 12:37 PM EST Cough in adult patient POCT INFLUENZA A (ID NOW RAPID MOLECULAR) Routine 08/11/2025 12:37 PM EST Cough in adult patient POCT INFLUENZA B (ID NOW RAPID MOLECULAR) Routine 08/11/2025 12:37 PM EST Cough in adult patient POCT GLYCATED HEMOGLOBIN, TOTAL Routine 07/09/2025 3:09 PM EST Type 2 diabetes mellitus without complication, without long-term current use of insulin (HCC) POCT GLUCOSE (CPT-67846) Routine 07/09/2025 3:08 PM EST Type 2 diabetes mellitus without complication, without long-term current use of insulin (HCC) BI MAMMOGRAM SCREENING TOMOSYNTHESIS BILATERAL Routine 05/29/2025 3:05 PM EDT LIPID PANEL, STANDARD Routine 09/11/2024 10:53 AM [...] Recently Relevant to Health Maintenance Results * Influenza B (ID NOW Rapid Molecular) (08/11/2025 12:37 PM EST) Influenza B Negative Negative, Indeterminate [facility] Swab 08/11/2025 12:3 7 PM EST Ryan Bhardwaj MD POINT OF CARE TEST EN TER/EDIT ORDERABLES Final Result Performing Organization Address [facility]/ZIP Co de Phone Number [facility] [address] [place] [phone] * Influenza A (ID NOW Rapid Molecular) (08/11/2025 12:37 PM EST) Influenza A Negative Negative, Indeterminate [facility] Swab 08/11/2025 12:3 7 PM EST Ryan Bhardwaj MD POINT OF CARE TEST EN TER/EDIT ORDERABLES Final Result Performing Organization Address [facility]/ZIP Co de Phone Number [facility] [address] [place] [phone] * POCT Rapid COVID Ag (08/11/2025 12:37 PM EST) Rapid COVID Ag Negative Swab 08/11/2025 12:3 7 PM EST Ryan Bhardwaj MD POINT OF CARE TEST EN TER/EDIT ORDERABLES Final Result * (ABNORMAL) POCT Hgb A1c (07/09/2025 3:09 PM EST) Pathologist [facility] Hemoglobin A1C 6.8(A) 4.0 - 5.7 % QC Media Lot # [id number] Lot# Expiration Date Blood 07/09/2025 3:09 PM EST us Ryan Bhardwaj MD POINT OF CARE TEST EN TER/EDIT ORDERABLES Final Result * POCT Glucose (07/09/2025 3:08 PM EST) Pathologist [facility] Glucose Blood, POC 174 60 - 200 mg/dL QC Media Lot # [id number] Lot# Expiration Date Blood Capillary blood specimen / Unknown 07/09/2025 3:08 PM EST us Ryan Bhardwaj MD POINT OF CARE TEST EN TER/EDIT ORDERABLES Final Result * BI Mammogram Screening Tomosynthesis Bilateral (05/29/2025 3:05 PM EDT) Anatomical Region Laterality Modality Breast Bilateral Mammography 05/29/2025 3:05 PM EDT Narrative 06/06/2025 3:21 PM EDT [facility] [address] [place] [address] Mammography Report Signed Patient: Angelina Ma MR#: [id number] : 1950 Acct:[id number] Age/Sex: 75 / F ADM Date: 05/29/25 Loc: HO.MAMMO Attending Dr: Ryan Randolph MD Ordering Physician: Ryan Randolph MD Resu lts: 2Benign Date of Service: 05/29/25 Follow Up: 1 Year From Orig ina Mammogram Procedure(s): MM tomosynthesis screening BI Accession Number(s): [id number] cc: Ryan Randolph MD Reason For Exam: SCREENING EXAMINATION: MM SCREENING DIGITAL BREAST TOMOSYNTHESIS, BILATERAL CLINICAL INFORMATION: Screening. Asymptomatic. COMPARISON: Comparison made to multiple prior, most recent May 26, 2024, and most remote April 02, 2019. TECHNIQUE: Digital breast tomosynthesis is performed in mediolateral oblique and craniocaudal views along with computer-aided detection (CAD). Synthesized 2D images are generated from the tomosynthesis. FINDINGS: BREAST COMPOSITION: There are scattered areas of fibroglandular density. BILATERAL BREASTS: Bilateral round, rim, and large rodlike calcifications, more numerous on the left side, are stable from at least 2018. No significant masses, suspicious calcifications or other abnormalities are seen in either breast. MM/MM tomosynthesis screening BI IMPRESSION: BILATERAL BREASTS: Benign, no mammographic evidence of malignancy. Normal interval follow-up is recommended in 12 months. ASSESSMENT: BI-RADS: Category 2: Benign RECOMMENDATION: Routine annual mammography screening. FOLLOW-UP: 1 year F/U This examination should not preclude the clinical evaluation of a suspicious palpable abnormality. This patient's information was entered into a reminder system with a target due date for their next mammogram. 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 [address] Mammography Report Signed Patient: Angelina Ma [facility]#: [id number] : 1950Acct:[id number] Age/Sex: 75 / FADM Date: 05/29/25 Loc: HO.MAMMO Attending Dr: Ryan Randolph MD Ordering Physician: Ryan Randolph MDResu lts: 2Benign Date of Service: 05/29/25Follow Up: 1 Year From Orig inal Mammogram Procedure(s): MM tomosynthesis screening BI Accession Number(s): [id number] cc: Ryan Randolph MD Reason For Exam: SCREENING EXAMINATION: MM SCREENING DIGITAL BREAST TOMOSYNTHESIS, BILATERAL CLINICAL INFORMATION: Screening. Asymptomatic. COMPARISON: Comparison made to multiple prior, most recent May 26, 2024, and most remote April 02, 2019. TECHNIQUE: Digital breast tomosynthesis is performed in mediolateral oblique and craniocaudal views along with computer-aided detection (CAD). Synthesized 2D images are generated from the tomosynthesis. FINDINGS: BREAST COMPOSITION: There are scattered areas of fibroglandular density. BILATERAL BREASTS: Bilateral round, rim, and large rodlike calcifications, more numerous on the left side, are stable from at least 2019. No significant masses, suspicious calcifications or other abnormalities are seen in either breast. MM/MM tomosynthesis screening BI IMPRESSION: BILATERAL BREASTS: Benign, no mammographic evidence of malignancy. Normal interval follow-up is recommended in 12 months. ASSESSMENT: BI-RADS: Category 2: Benign RECOMMENDATION: Routine annual mammography screening. FOLLOW-UP: 1 year F/U This examination should not preclude the clinical evaluation of a suspicious palpable abnormality. This patient's information was entered into a reminder system with a target due date for their next mammogram. 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 Comment:Desirable Cholestero l: less than 200 mg/dLBorderline High Cholesterol: 200-239 mg/dLHigh Cholesterol: greater than 239 mg/dL LDL Cholesterol Calculated 63 <100 mg/dL [facility] Comment:Desirable LDL: less than 100 mg/dLNear Optimal/Above Optimal LDL: 110- 129 mg/dLBorderline High LDL: 130-159 mg/dLHigh LDL: 160-189 mg/dLVery High LDL: greater than or equal to 190 mg/dL HDL Cholesterol 42 >40 mg/dL [facility] Comment:Desirable HDL: great er than 40 mg/dL Note: This HDL assay may give artificially low results in patients with liver disease. Blood Venous blood specimen / Unknown 09/11/2024 10:53 AM EST 09/11/2024 11:33 AM EST Ryan Bhardwaj MD LAB BLOOD ORDERABLES Final Result [facility] [address] [place], [place] [phone] * Hm Colonoscopy (11/30/2023) Colonoscopy Normal Normal Historical Provider HEALTH MAINTENANCE Final Result * Albumin, Random Urine W/O Creatinine (12/29/2022 9:16 AM EDT) Albumin, Urine 0.6 See Note: mg/dL Care Team [facility] [place] [facility] Comment: Reference Range: Reference Range Not established [facility] [employer] [place] [facility] Comment: The ADA defines abnormalities in albumin [...] LAB URINE ORDERABLES Final Result [facility] [address], [place] [address] Care Team [facility] [place] [facility] [address] [place] [address] from Last 3 Months or Most Recently Relevant to Health Maintenance Additional Health Concerns Active Problems Noted Date [...] 08/11/2025 Patient has chronic kidney disease 08/11/2025 Insurance [facility] [employer] OPTIONS (O D-SNP) [facility] [address] [facility] Care Teams Demolition Expert Relationship Specialty Start Date End Date Ryan Latif MD [address] [place] [address] PCP - General Internal Medicine 05/20/14
--- OUTSIDE RECORDS SUMMARY | 2025-08-11 13:25 | XMS_ITS | Encounter Summary ---
Author Organization [employer] Address [address] [place] [address] 7t [place] [address] Care Team Providers Care Appliance Parts Counter Clerk Name Role Phone Ryan Latif MD Primary Care Provide r Reason for Visit * Reason Comments Med Refill Encounter Details Date Type Department Care Team (Late Contact Info) Description 05/17/2023 Refill [facility] MEDICINE [address] [place] [address] [phone] Ryan Latif MD [address] [place] [address] [phone] Chronic GERD Social History Tobacco Use Types [...] Department Care Team (Late Contact Info) Description 10/20/2025 3:00 PM EST Office Visit [facility] MEDICINE [address] [place] [address] [phone] Ryan Latif MD [address] [place], [place] [phone] documented as of this encounter Visit Diagnoses Diagnosis Chronic GERD documented in this encounter Additional Health Concerns Assessment Noted Time PHQ-9 Depression Total Score: 7 12/20/19 23 2:03 PM EDT documented as of this encounter Care Teams Appliance Parts Counter Clerk Relationship Specialty Start Date End Date Ryan Latif MD [address] [facility] [place] [address] PCP - General Internal Medicine 05/20/14 documented as of this encounter
--- OUTSIDE RECORDS SUMMARY | 2025-08-11 13:25 | XMS_ITS | Encounter Summary ---
Author Organization [employer] Address [address] [facility] 7t [place] [address] Care Team Providers Care Etl Bi Developer Name Role Phone Ryan Latif MD Primary Care Provide r Encounter Details Date Type Department Care Team (Late Contact Info) Description 01/04/2023 Orders Only [facility] CHC MED & PEDS [address] [place], [place] [phone] Kamryn Cruz LPN Social History Tobacco Use [...] Description 10/20/2025 3:00 PM EST Office Visit [facility] MEDICINE [address] [place], [place] [phone] Ryan Latif MD [address] [place], [place] [phone] documented as of this encounter Visit Diagnoses Not on filedocumented in this encounter Additional Health Concerns Assessment Noted Time PHQ-9 Depression Total Score: 7 12/20/19 23 2:03 PM EDT documented as of this encounter Care Teams Etl Bi Developer Relationship Specialty Start Date End Date Ryan Latif MD [address] [place] [address] PCP - General Internal Medicine 05/20/14 documented as of this encounter
--- OUTSIDE RECORDS SUMMARY | 2025-08-11 13:25 | XMS_ITS | Encounter Summary ---
Author Organization [employer] Address [address] [facility] 7t [place] [address] Care Team Providers Care Sas Programmer Analyst Name Role Phone Ryan Latif MD Primary Care Provide r Encounter Details Date Type Department Care Team (Late st Contact Info) Description 11/21/2022 Orders Only [facility] CHC MED & PEDS [address] [place], [place] [phone] Kamryn Cruz LPN Social History Tobacco Use [...] Description 10/20/2025 3:00 PM EST Office Visit [facility] MEDICINE [address] [place], [place] [phone] Ryan Latif MD [address] [place], [place] [phone] documented as of this encounter Procedures Procedure [...] PM EDT Narrative 12/19/2022 4:15 PM EDT [address] [address] XRay Report Signed Patient: Angelina Bhardwaj MR#: [id number] 9 : 1950 Acct:[id number] Age/Sex: 72 / F ADM Date: 12/19/22 Loc: HO.HHCX Attending Dr: Ryan Randolph MD Ordering Physician: Ryan Randolph MD Date of Service: 12/19/22 Procedure(s): XR hip LT min 2V Accession Number(s): [id number] cc: Ryan Randolph MD EXAMINATION: XR HIP, [...] in OV> 12/19/22 1612 DD/ 1517 TD/TT: Printed Circuit Designer: TAMY Procedure Note Donotuseinterpreter, Image - 02/14/[address] [address] XRay Report Signed Patient: Angelina Bhardwaj MMR#: [id number] 9 : 1950Acct:[id number] Age/Sex: 72 / FADM Date: 12/19/22 Loc: HO.HHCX Attending Dr: Ryan Randolph MD Ordering Physician: Ryan Randolph MD Date of Service: 12/19/22 Procedure(s): XR hip LT min 2V Accession Number(s): [id number] cc: Ryan Randolph MD EXAMINATION: XR HIP, [...] MD inOV> 12/19/22 1612 DD/ 1517 TD/TT: Printed Circuit Designer: TAMY [facility] External Provider IMG XR PROCEDURES Edited Result - Final * XR Lumbar Spine Complete 4+ Views (12/19/2022 3:17 PM EDT) Anatomical Region Laterality Modality Spine, L-spine Radiographic Latrice ging 12/19/2022 3:17 PM EDT Narrative 12/19/2022 4:18 PM EDT [address] [address] XRay Report Signed Patient: Angelina Bhardwaj MR#: [id number] 9 : 1950 Acct:[id number] Age/Sex: 72 / F ADM Date: 12/19/22 Loc: HO.HHCX Attending Dr: Ryan Randolph MD Ordering Physician: Ryan Randolph MD Date of Service: 12/19/22 Procedure(s): XR lumbar spine 4V min Accession Number(s): [id number] cc: Ryan Randolph MD EXAMINATION: XR LUMBOSACRAL [...] in OV> 12/19/22 1616 DD/ 1517 TD/TT: Printed Circuit Designer: TAMY Procedure Note Donotuseinterpreter, Image - 01/09/[address] [address] XRay Report Signed Patient: Angelina Bhardwaj [facility]#: [id number] 9 : 1950Acct:[id number] Age/Sex: 72 / FADM Date: 12/19/22 Loc: HO.HHCX Attending Dr: Ryan Randolph MD Ordering Physician: Ryan Randolph MD Date of Service: 12/19/22 Procedure(s): XR lumbar spine 4V min Accession Number(s): [id number] cc: Ryan Randolph MD EXAMINATION: XR LUMBOSACRAL [...] MD inOV> 12/19/22 1616 DD/ 1517 TD/TT: Printed Circuit Designer: TAMY [facility] External Provider IMG XR PROCEDURES Edited Result - Final documented in this encounter Visit Diagnoses Not on filedocumented in this encounter Care Teams Sas Programmer Analyst Relationship Specialty Start Date End Date Ryan Latif MD [address] [place] [address] PCP - General Internal Medicine 05/20/14 documented as of this encounter
--- OUTSIDE RECORDS SUMMARY | 2025-08-11 13:25 | XMS_ITS | Encounter Summary ---
Author Organization [employer] Address [address] [facility] 7t [place] [address] Care Team Providers Care Supervisor Fusing Room Name Role Phone Ryan Latif MD Primary Care Provide r Reason for Visit * Reason Comments Med Refill Encounter Details Date Type Department Care Team ([facility] Contact Info) Description 06/19/2023 Refill [facility] MEDICINE [address] [place], [place] [phone] Ryan Latif MD [address] [place], [place] [phone] Chronic GERD Social History Tobacco Use Types [...] Description 10/20/2025 3:00 PM EST Office Visit [facility] MEDICINE [address] [place] [address] Ryan Latif MD [address] [place] [address] documented as of this encounter Visit Diagnoses Diagnosis Chronic GERD documented in this encounter Additional Health Concerns Assessment Noted Time PHQ-9 Depression Total Score: 7 12/20/19 23 2:03 PM EDT documented as of this encounter Care Teams Supervisor Fusing Room Relationship Specialty Start Date End Date Ryan Latif MD [address] [place] [address] PCP - General Internal Medicine 05/20/14 documented as of this encounter
--- OUTSIDE RECORDS SUMMARY | 2025-08-11 13:25 | XMS_ITS | Encounter Summary ---
Author Organization [employer] Address [address] [facility] 7t [place] [address] Care Team Providers Care Transmitter Tester Name Role Phone Ryan Latif MD Primary Care Provide r Encounter Details Date Type Department Care Team (Latest Contact Info) Description 04/24/2019 Abstract [facility] CONVERSIONS Dental, Provider, DDS Social History [...] Description 10/20/2025 3:00 PM EST Office Visit [facility] MEDICINE [address] [place] [address] Ryan Latif MD [address] [place] [address] documented as of this encounter Visit Diagnoses Not on filedocumented in this encounter Care Teams Transmitter Tester Relationship Specialty Start Date End Date Ryan Latif MD [address] [place] [address] PCP - General Internal Medicine 05/20/14 documented as of this encounter
--- OUTSIDE RECORDS SUMMARY | 2025-08-11 13:25 | XMS_ITS | Encounter Summary ---
Author Organization [employer] Address [address] [facility] 7t [place] [address] Care Team Providers Care Community Health Educator Name Role Phone Ryan Latif MD Primary Care Provide r Encounter Details Date Type Department Care Team (Late st Contact Info) Description 09/14/2022 Orders Only [facility] CHC MED & PEDS [address] [place], [place] [phone] Kamryn Cruz LPN Social History Tobacco Use [...] Description 10/20/2025 3:00 PM EST Office Visit [facility] MEDICINE [address] [place] [address] Ryan Latif MD [address] [place] [address] documented as of this encounter Visit Diagnoses Not on filedocumented in this encounter Care Teams Community Health Educator Relationship Specialty Start Date End Date Ryan Latif MD [address] [place] [address] PCP - General Internal Medicine 05/20/14 documented as of this encounter
--- OUTSIDE RECORDS SUMMARY | 2025-08-11 13:25 | XMS_ITS | Encounter Summary ---
Author Organization [employer] Address [address] [facility] 7t [place] [address] Care Team Providers Care News Anchor Name Role Phone Ryan Latif MD Primary Care Provide r Reason for Visit * Reason Comments Med Refill Encounter Details Date Type Department Care Team ([facility] Contact Info) Description 05/29/2023 Refill [facility] MEDICINE [address] [place], [place] [phone] Ryan Latif MD [address] [place] [address] Chronic GERD Social History Tobacco Use Types [...] Description 10/20/2025 3:00 PM EST Office Visit [facility] MEDICINE [address] [place] [address] Ryan Latif MD [address] [place] [address] documented as of this encounter Visit Diagnoses Diagnosis Chronic GERD documented in this encounter Additional Health Concerns Assessment Noted Time PHQ-9 Depression Total Score: 7 12/20/19 23 2:03 PM EDT documented as of this encounter Care Teams News Anchor Relationship Specialty Start Date End Date Ryan Latif MD [address] [place] [address] PCP - General Internal Medicine 05/20/14 documented as of this encounter
--- OUTSIDE RECORDS SUMMARY | 2025-08-11 13:25 | XMS_ITS | Encounter Summary ---
Author Organization [employer] Address [address] [facility] 7t [place] [address] Care Team Providers Care Glass Calibrator Name Role Phone Ryan Latfi MD Primary Care Provide r Reason for Visit * Reason Comments Med Refill Encounter Details Date Type Department Care Team ([facility] Contact Info) Description 06/06/2023 Refill [facility] MEDICINE [address] [place], [place] [phone] Ryan Latif MD [address] [place], [place] [phone] Chronic GERD Social History Tobacco Use Types [...] Description 10/20/2025 3:00 PM EST Office Visit [facility] MEDICINE [address] [place] [address] Ryan Latif MD [address] [place] [address] documented as of this encounter Visit Diagnoses Diagnosis Chronic GERD documented in this encounter Additional Health Concerns Assessment Noted Time PHQ-9 Depression Total Score: 7 12/20/19 23 2:03 PM EDT documented as of this encounter Care Teams Glass Calibrator Relationship Specialty Start Date End Date Ryan Latif MD [address] [place] [address] PCP - General Internal Medicine 05/20/14 documented as of this encounter
--- OUTSIDE RECORDS SUMMARY | 2025-08-11 13:25 | XMS_ITS | Encounter Summary ---
Author Organization [employer] Address [address] [facility] [address] 7t [place] [address] Care Team Providers Care Crt Name Role Phone Ryan Latif MD Primary Care Provide r Encounter Details Date Type Department Care Team (Latest Contact Info) Description 08/11/2025 Travel Social History Tobacco Use Types Packs/Day [...] Description 10/20/2025 3:00 PM EST Office Visit [facility] MEDICINE [address] [place] [address] Ryan Latif MD [address] [place] [address] documented as of this encounter Goals Goal [...] Care Plan Weekly blood pressure task No Amy Carsono [place] Weekly blood pressure task Care Plan Weekly blood pressure task No Bart Carson [place] Patient has chronic kidney disease Care Plan Patient has chronic kidney disease No Bart Carson [place] Patient has chronic kidney disease Care Plan Patient has chronic kidney disease No Akila Cars[place] documented as of this encounter Visit Diagnoses [...] documented as of this encounter Care Teams Crt Relationship Specialty Start Date End Date Ryan Latif MD [address] [place] [address] PCP - General Internal Medicine 05/20/14 documented as of this encounter
--- OUTSIDE RECORDS SUMMARY | 2025-08-11 13:25 | XMS_ITS | Encounter Summary ---
Author Organization [employer] Address [address] [facility] 7t [place] [address] Care Team Providers Care Risk And Insurance Manager Name Role Phone Ryan Latif MD Primary Care Provide r Reason for Visit * Reason Comments Med Refill Encounter Details Date Type Department Care Team ([facility] Contact Info) Description 06/11/2023 Refill [facility] MEDICINE [address] [place], [place] [phone] Ryan Latif MD [address] [place], [place] [phone] Chronic GERD Social History Tobacco Use Types [...] Description 10/20/2025 3:00 PM EST Office Visit [facility] MEDICINE [address] [place] [address] Ryan Latif MD [address] [place] [address] documented as of this encounter Visit Diagnoses Diagnosis Chronic GERD documented in this encounter Additional Health Concerns Assessment Noted Time PHQ-9 Depression Total Score: 7 12/20/19 23 2:03 PM EDT documented as of this encounter Care Teams Risk And Insurance Manager Relationship Specialty Start Date End Date Ryan Latif MD [address] [place] [address] PCP - General Internal Medicine 05/20/14 documented as of this encounter
--- OUTSIDE RECORDS SUMMARY | 2025-08-11 13:25 | XMS_ITS | Encounter Summary ---
Author Organization [employer] Address [address] [facility] 7t [place] [address] Care Team Providers Care Vice President Client Services Name Role Phone Ryan Latif MD Primary Care Provide r Encounter Details Date Type Department Care Team (Late st Contact Info) Description 08/25/2022 Orders Only [facility] CHC MED & PEDS [address] [place], [place] [phone] Kamryn Cruz LPN Social History Tobacco Use [...] Description 10/20/2025 3:00 PM EST Office Visit [facility] MEDICINE [address] [place] [address] Ryan Latif MD [address] [place] [address] documented as of this encounter Visit Diagnoses Not on filedocumented in this encounter Care Teams Vice President Client Services Relationship Specialty Start Date End Date Ryan Latif MD [address] [place] [address] PCP - General Internal Medicine 05/20/14 documented as of this encounter
--- OUTSIDE RECORDS SUMMARY | 2025-08-11 13:25 | XMS_ITS | Encounter Summary ---
Author Organization [employer] Address [address] [facility] 7t [place] [address] Care Team Providers Care Yard Laborer Name Role Phone Ryan Latif MD Primary Care Provide r Encounter Details Date Type Department Care Team (Latest Contact Info) Description 06/21/2021 Abstract [facility] CONVERSIONS Dental, Provider, DDS Social History [...] Description 10/20/2025 3:00 PM EST Office Visit [facility] MEDICINE [address] [place] [address] Ryan Latif MD [address] [place] [address] documented as of this encounter Visit Diagnoses Not on filedocumented in this encounter Care Teams Yard Laborer Relationship Specialty Start Date End Date Ryan Latif MD [address] [place] [address] PCP - General Internal Medicine 05/20/14 documented as of this encounter
== END 2025-08-11 12:15 | disposition home or self-care (01) ==
LOC: HO.HHCX 12:14
PROVIDERS: Visit Provider Internal Medicine
DX: M25.572 Pain in left ankle and joints of left foot (principal); M54.2 Cervicalgia; M25.561 Pain in right knee
CPT/HCPCS: 72050; 73564; 73610

== ENCOUNTER → 2025-08-11 12:15 | Outpatient (BNV) | payer OTHER, SELFPAY | PROVIDERS: Visit Provider Radiology Diagnostic Radiology | DX: M50.323 Other cervical disc degeneration at C6-C7 level (principal); M25.561 Pain in right knee; M17.11 Unilateral primary osteoarthritis, right knee; M25.571 Pain in right ankle and joints of right foot; M19.071 Primary osteoarthritis, right ankle and foot; Z04.3 Encounter for examination and observation following other accident | CPT/HCPCS: 72050; 73564; 73610 ==

== ENCOUNTER 2025-08-11 13:06 | Outpatient (REF) | payer OTHER, SELFPAY ==
[2025-08-11 16:21] LABS: MANUAL DIFF FLAG NO
[2025-08-11 16:23] LABS: Hematocrit 46.9 % (37.0-47.0); Hemoglobin 15.2 g/dl (12.0-16.0); Imm Gran Abs Auto 0.03 X10*3/uL (0.00-0.03); Imm Gran Pct Auto 0.3 % (0.0-0.4); Lymphocytes Absolute Auto 2.9 X10*3/uL (1.2-4.9); Mean Corpuscular HGB Conc 32.4 g/dl (31.0-35.0); Mean Corpuscular Hemoglobin 30.0 pg (27.0-33.0); Mean Corpuscular Volume 92.5 fL (80.0-98.0); NRBC Abs Auto 0.000 X10*3/uL (0.0-0.012); NRBC Pct Auto 0.0 /100WBC (0.0-0.2); Platelet Count 142 X10*3/uL (160-400); Red Blood Count 5.07 X10*6/uL (4.20-5.50); White Blood Count 9.5 X10*3/uL (4.8-10.8)
[2025-08-11 16:41] LABS: Alanine Aminotransferase 26 U/L (0-31); Albumin Level 4.9 g/dL (3.5-5.0); Alkaline Phosphatase 122 U/L (39-117); Anion Gap 15 (12-20); Aspartate Amino Transferase 30 U/L (5-31); Blood Urea Nitrogen 12 mg/dL (9-16); Calcium 10.4 mg/dL (8.4-10.2); Carbon Dioxide 29 mmol/L (22-29); Chloride 103 mmol/L (96-108); Cholesterol 123 mg/dL (<200); Estimated Glomerular Filt Rate > 60; HDL Cholesterol 37 mg/dL (>40); Potassium 3.8 mmol/L (3.3-5.1); Sodium 143 mmol/L (135-145); Total Protein 8.0 g/dL (6.5-8.0); Triglycerides 160 mg/dL (<150)
[2025-08-11 16:51] LABS: Microalbum/Creatinine Ratio Ur 6.8 ug/mg cr (<30)
== END 2025-08-11 13:07 | disposition home or self-care (01) ==
LOC: HO.HHCL 13:06
PROVIDERS: PCP Internal Medicine; Visit Provider Internal Medicine
DX: R42 Dizziness and giddiness (principal); E11.9 Type 2 diabetes mellitus without complications
CPT/HCPCS: 36415; 80053; 80061; 82043; 82570; 84443; 85025